=== PATIENT | female | born 1945 | race Caucasian/White ===

== ENCOUNTER 2017-04-08 15:13 | Inpatient (IN) | payer MEDICARE, OTHER ==
[~2017-04-08] VITALS: Ht 165.1 cm; Wt 93.0 kg
[~2017-04-08 15:13] MED LIST: PRAVASTATIN SOD80 MG PO
[2017-04-08 16:12] LABS: BASOPHILS # (AUTO) 0.1 (0.0-0.1); BASOPHILS % 0.7 % (0.0-1.0); HEMATOCRIT 46.1 % (34.2-44.1); HEMOGLOBIN 14.3 g/dL (12.0-16.0); LYMPHOCYTES # (AUTO) 1.4 (1.0-3.2); LYMPHOCYTES % 8.1 % (18.0-39.1); MEAN CORPUSCULAR HEMOGLOBIN 28.5 pg (28-32); MONOCYTES # (AUTO) 1.1 (0.2-0.8); MONOCYTES % 6.6 % (4.4-11.3); NEUTROPHILS # (AUTO) 14.1 (2.1-6.9); NEUTROPHILS % 81.3 % (38.7-80.0); PLATELET COUNT 380 x10e3/uL (140-360); RED BLOOD COUNT 5.01 x10e6/uL (3.6-5.1); RED CELL DISTRIBUTION WIDTH 14.5 % (11.7-14.4)
[2017-04-08] MEDS ORDERED: SODIUM CHLORIDE 0.9% 1000ML 2,000 ML ONE (16:12)
[2017-04-08] MEDS ORDERED: ASPIRIN 81 MG CHEW TAB PO ONE ×2 (16:15→18:45)
[2017-04-08] MEDS ORDERED: SODIUM CHLORIDE 0.9% 1000ML 1,000 ML IV SCH (16:15)
[2017-04-08] MEDS ORDERED: INSULIN REGULAR, HUMAN 100 UNIT/1 ML 3ML VIAL IV ONE (16:15)
[2017-04-08 16:25] LABS: ALBUMIN 3.8 g/dL (3.5-5.0); ALBUMIN/GLOBULIN RATIO 0.8 (0.8-2.0); ANION GAP 38.8 mmol/L (8-16); CALCIUM 9.6 mg/dL (8.4-10.2); CREATININE, SERUM 2.54 mg/dL (0.57-1.11); POTASSIUM 4.8 mmol/L (3.5-5.1)
[2017-04-08 16:30] LABS: CREATINE KINASE MB 6.8 ng/mL (0.00-5.00); TROPONIN I 0.675 ng/mL (0-0.300)
[2017-04-08 16:33] LABS: BLOOD UREA NITROGEN 28 mg/dL (7-26); SODIUM 131 mmol/L (136-145)
[2017-04-08 16:34] LABS: GLUCOSE 1147 mg/dL (74-118); OSMOLALITY,SERUM 326 mOsm/kg (278-305)
[2017-04-08] MEDS: SODIUM CHLORIDE 0.9% 1000ML 2,000 ML IV SCH ×4 (16:45→19:54)
[2017-04-08 16:48] LABS: LIPASE 65 U/L (8-78)
[2017-04-08] MEDS ORDERED: PROPOFOL IV EMULSION 10MG/ML 100 ML ONE (16:49)
[2017-04-08] MEDS ORDERED: INSULIN REGULAR, HUMAN 3ML VL 100 UNIT in SODIUM CHLORIDE 0.45% 100 ML 99 ML IV SCH ×2 (17:00)
[2017-04-08 17:13] LABS: LYMPHOCYTES % (MANUAL) 10 % (19-48); MONOCYTES % (MANUAL) 5 % (3.4-9.0); NEUTROPHILS % (MANUAL) 84 % (40-74); PLATELET ESTIMATE SLIGHTLY INCREASED; PLATELET MORPHOLOGY COMMENT NORMAL; RBC MORPHOLOGY COMMENT NORMAL
[2017-04-08] MEDS ORDERED: METOPROLOL TARTRATE INJ 1 MG/ML VIAL IV ONE ×2 (18:00→19:30)
[2017-04-08] MEDS: MIDAZOLAM HCL 25 MG in SODIUM CHLORIDE 0.9% 50ML 45 ML IV SCH ×2 (18:02→20:23)
[2017-04-08] MEDS: SODIUM CHLORIDE 0.9% 1000ML 1,000 ML IV SCH ×3 (18:08→22:08)
[2017-04-08] MEDS ORDERED: PIPER-TAZ 3.375 GM 50 ML IV ONE (18:15)
[2017-04-08] MEDS ORDERED: WATER STERILE 10 ML VIAL ONE (18:25)
[2017-04-08] MEDS ORDERED: MIDAZOLAM HCL 2 MG/2 ML VIAL ONE (18:25)
[2017-04-08] MEDS ORDERED: SUCCINYLCHOLINE 200 MG/10 ML SYR ONE (18:25)
[2017-04-08] MEDS ORDERED: ETOMIDATE 2 MG/ML 10 ML INJ IV ONE (18:25)
[2017-04-08] MEDS ORDERED: VECURONIUM BROMIDE FOR INJ 20 MG VIAL ONE (18:25)
[2017-04-08] MEDS ORDERED: VANCOMYCIN 1GM/NS 250 ML 250 ML IV ONE (18:30)
[2017-04-08] MEDS: PROPOFOL IV EMULSION 10MG/ML 100 ML IV SCH (18:44)
[2017-04-08] MEDS ORDERED: SODIUM CHLORIDE 0.9% 1000ML 3,000 ML IV SCH (19:00)
[2017-04-08] MEDS ORDERED: INSULIN REGULAR, HUMAN 100 UNIT/1 ML 3ML VIAL ONE (19:02)
[2017-04-08] MEDS ORDERED: VENLAFAXINE H37.5 M2 PO (19:26)
[2017-04-08] MEDS ORDERED: LEVEMIR100 UNIT/1 SQ (19:26)
[2017-04-08] MEDS ORDERED: ARICEPT5 MG PO (19:26)
[2017-04-08] MEDS ORDERED: CARVEDILOL12.5 MG PO (19:26)
[2017-04-08] MEDS ORDERED: MECLIZINE HCL12.5 MG PO (19:26)
[2017-04-08] MEDS ORDERED: NIFEDIPINE ER30 M1 PO (19:26)
[2017-04-08] MEDS ORDERED: ALPRAZOLAM0.5 MG PO (19:26)
[2017-04-08] MEDS ORDERED: CLONIDINE HCL0.1 MG PO (19:26)
[2017-04-08] MEDS ORDERED: SODIUM CHLORIDE 0.9% 1000ML 1,000 ML ONE (19:27)
[2017-04-08 19:29] LABS: BILIRUBIN,URINE NEGATIVE (NEGATIVE); COLOR,URINE YELLOW (YELLOW); KETONES,URINE 2+ (NEGATIVE); LEUKOCYTE ESTERASE ,URINE NEGATIVE (NEGATIVE); NITRITE,URINE NEGATIVE (NEGATIVE); URINE UROBILINOGEN 0.2 mg/dL (0.2 - 1)
[2017-04-08 19:30] LABS: CLARITY,URINE SL CLOUDY (CLEAR); PROTEIN,URINE DIPSTICK 1+ (NEGATIVE)
[2017-04-08] MEDS ORDERED: INSULIN LISPRO 100 UNIT/1 ML 3ML VIAL SQ ONE (19:30)
[2017-04-08 19:38] LABS: RBC,URINE 0-5 /HPF (0-5)
[2017-04-08 19:39] LABS: BACTERIA,URINE FEW /HPF; EPITHELIAL CELLS,URINE RARE /LPF
[2017-04-08 20:22] LABS: CALCIUM 7.9 mg/dL (8.4-10.2); CREATININE, SERUM 2.13 mg/dL (0.57-1.11)
[2017-04-08 20:26] LABS: CREATINE KINASE MB 9.6 ng/mL (0.00-5.00)
[2017-04-08 20:28] LABS: TROPONIN I 2.295 ng/mL (0-0.300)
[2017-04-08] MEDS ORDERED: ASPIRIN 300 MG SUPP PR STA (20:33)
[2017-04-08] MEDS ORDERED: ENOXAPARIN SOD INJ 60 MG/0.6 ML SYR SC STA (20:33)
--- NOTE | 2017-04-08 20:34 | History and Physical ---
This 71-year-old female comes in with acute confusion. She was found to have DKA and admitted for the same. HISTORY OF PRESENT ILLNESS: Ms. Gloria Ovalles has a history of uncontrolled diabetes mellitus. She was seeing digital imaging specialist. She was in her usual state of health until 2 days ago when the patient started to feel some fever with congestion, according to the family, and today the patient was feeling very lethargic, in pain, a lot of muscle pain and came to the emergency room and was found to have blood sugar of 1000 and admitted for the same. PAST MEDICAL HISTORY: History of hypertension, diabetes mellitus, uncontrolled, history of neuropathy, history of dementia and also history of vertigo and chronic low back pain. She also has history of cellulitis of the leg. PAST SURGICAL HISTORY: The patient is intubated, but we know that she had a hip replacement and also knee replacement. Other surgeries at this time not known. MEDICATIONS: That we know, are Carvedilol 12.5 mg twice a day, lisinopril, meclizine. She takes alprazolam. She takes hydrocodone. She takes pravastatin. REVIEW OF SYSTEMS: Unable to get at this time. PHYSICAL EXAMINATION GENERAL: The patient is intubated. She is sedated. HEENT: Normocephalic, atraumatic. Pupils are reactive. LUNGS: Decreased air entry into lung bases and also positive for some rhonchi. ABDOMEN: Soft and nontender, nondistended. EXTREMITIES: Positive for some edema and positive for some erythema too. LABORATORY DATA: On initial labs, the patient has white count of 17,000, hemoglobin 14.3, hematocrit 46.1. is 14.1. Chemistry: Sodium 131, chloride 88, carbon dioxide of 9, bicarb 9, anion gap of 38.8, BUN 28, creatinine 2.54. Glucose 1147. Osmolality was 326. Lactic acid was 58.6. Troponin was 0.675 and CK MB was 6.8. IMAGING: CK MB was 6.8. IMAGING: Brain CT mild generalized volume loss, mild supratentorial white matter, small vessel disease. Renal ultrasound was done, normal renal ultrasound examination. Chest x-ray shows no acute radiographic abnormalities. Lower extremity x-rays show moderate soft tissue swelling in the ankle without underlying chronic erosion or destruction or fracture. ASSESSMENT 1. Diabetic ketoacidosis. 2. Sepsis, possibly because of elevated lactic acid. 3. Acute kidney injury. 4. Dehydration. 5. History of hypertension. 6. Troponin leak. 7. Hyperglycemia. PLAN: The plan is to start the patient on insulin drip. Dr. Wharton has been consulted. The patient has been intubated and will see the patient in ICU. Pancultures have been ordered. The patient is on vancomycin and Zosyn at this time. Consult with Dr. Read for troponin leak has been done and also with Dr. Avila. Monitor the patient in ICU. Further recommendations depending on clinical course. Will try to get her home medications and also further history from the . The patient will be transferred to the ICU from the ER right now. Job#: [id number] GH
[2017-04-08 20:55] LABS: ABG PH 7.19 (7.31-7.41)
[2017-04-08] MEDS: MAGNESIUM SULF 1GRAM/DEXTROSE 100 ML IV PRN (20:55)
[2017-04-08] MEDS ORDERED: MAGNESIUM SULF 1GRAM/DEXTROSE 100 ML IV ONE (20:55)
[2017-04-08 20:56] LABS: ABG HCO3 13 mmol/L (23-28); ABG PCO2 34 mmHg (41-51); ABG PO2 140 mmHg (80-105)
--- NOTE | 2017-04-08 21:48 | Diagnostic Imaging Report ---
EXAM: ABDOMEN-1VIEW (KUB), supine DATE: 04/08/2017 7:13 PM Time stamp on exam: 1937 hours INDICATION: Not provided COMPARISON: None FINDINGS: LINES/TUBES: None BOWEL PATTERN: No evidence for obstruction. SOFT TISSUES: No abnormal calcifications. No mass effect. LUNG BASES: Not included BONES: No acute findings. IMPRESSION: Nonobstructive bowel gas pattern. Signed by: Dr. Anahi Munoz M.D. on 04/08/2017 9:45 PM
--- NOTE | 2017-04-08 21:49 | Diagnostic Imaging Report ---
EXAM: CHEST SINGLE (PORTABLE), AP 1 view DATE: 04/08/2017 7:13 PM Time stamp on exam: 1938 hours INDICATION: Intubation COMPARISON: February 13, 2017 endotracheal tube terminates 3 cm above the rosaline. Right internal jugular vein central catheter terminates in the dilatation of the distal superior vena cava. FINDINGS: LINES/TUBES: None LUNGS: Bilateral edema and bibasilar atelectasis. PLEURA: No effusions or pneumothorax. HEART AND MEDIASTINUM: The heart is within normal size limits. Enlargement of the main pulmonary arteries. BONES AND SOFT TISSUES: No acute findings. IMPRESSION: Mild edema. Signed by: Dr. Anahi Munoz M.D. on 04/08/2017 9:46 PM
[2017-04-08 21:57] LABS: INR 1.18; PROTHROMBIN TIME 15.6 seconds (11.9-14.5)
[2017-04-08 21:58] LABS: PARTIAL THROMBOPLASTIN TIME 26.7 seconds (23.8-35.5)
[2017-04-09] VITALS (42 sets, daily range): BP systolic 127–161; BP diastolic 71–107
[2017-04-09 00:37] LABS: ANION GAP 16.8 mmol/L (8-16); CALCIUM 7.5 mg/dL (8.4-10.2); CREATININE, SERUM 1.56 mg/dL (0.57-1.11); MAGNESIUM 1.7 MG/DL (1.3-2.1); POTASSIUM 3.8 mmol/L (3.5-5.1)
[2017-04-09] MEDS: ACETAMINOPHEN 1000 MG/100 ML IV PRN ×2 (02:00→16:34)
[2017-04-09] MEDS: DEXTROSE 5%/0.45% SOD CHL 1,000 ML IV SCH ×7 (02:05→22:05)
[2017-04-09] MEDS ORDERED: SODIUM CHLORIDE 0.45% 100 ML 100 ML IV ONE (02:16)
[2017-04-09] MEDS: SODIUM CHLORIDE 0.9% 1000ML 1,000 ML IV SCH ×5 (02:16→08:08)
[2017-04-09 03:24] LABS: BASOPHILS % 0.3 % (0.0-1.0); EOSINOPHILS % 0.1 % (0.0-6.0); HEMATOCRIT 32.1 % (34.2-44.1); LYMPHOCYTES # (AUTO) 1.9 (1.0-3.2); LYMPHOCYTES % 16.6 % (18.0-39.1); MEAN CORPUSCULAR HGB CONC 34.3 g/dL (31-35); MEAN CORPUSCULAR VOLUME 84.7 fL (81-99); MONOCYTES # (AUTO) 1.1 (0.2-0.8); MONOCYTES % 9.6 % (4.4-11.3); NEUTROPHILS # (AUTO) 8.3 (2.1-6.9); NEUTROPHILS % 72.8 % (38.7-80.0); PLATELET COUNT 246 x10e3/uL (140-360); RED BLOOD COUNT 3.79 x10e6/uL (3.6-5.1); RED CELL DISTRIBUTION WIDTH 14.3 % (11.7-14.4)
[2017-04-09 03:41] LABS: ANION GAP 14.5 mmol/L (8-16); CALCIUM 7.3 mg/dL (8.4-10.2); CREATININE, SERUM 1.27 mg/dL (0.57-1.11); MAGNESIUM 1.4 MG/DL (1.3-2.1); PHOSPHORUS 2.4 MG/DL (2.3-4.7); POTASSIUM 3.5 mmol/L (3.5-5.1)
[2017-04-09 03:47] LABS: CREATINE KINASE MB 17.5 ng/mL (0.00-5.00)
[2017-04-09 03:49] LABS: TROPONIN I 13.619 ng/mL (0-0.300)
[2017-04-09] MEDS ORDERED: MAGNESIUM SULF 1GRAM/DEXTROSE 100 ML IV ONE (04:32)
--- NOTE | 2017-04-09 05:39 | Diagnostic Imaging Report ---
EXAM: CHEST SINGLE (PORTABLE), AP 1 view DATE: 04/09/2017 7:00 AM Time stamp on exam: 0511 hours INDICATION: Intubated COMPARISON: AP view of the chest April 08, 2017 FINDINGS: LINES/TUBES: Stable position of endotracheal tube, right internal jugular vein central line. LUNGS: Stable edema and perihilar and bibasilar atelectasis PLEURA: No effusions or pneumothorax. HEART AND MEDIASTINUM: The heart is within normal size limits. Stable enlargement of the central pulmonary vessels. BONES AND SOFT TISSUES: No acute findings. IMPRESSION: No interval change. Signed by: Dr. Anahi Munoz M.D. on 04/09/2017 5:36 AM
[2017-04-09] MEDS ORDERED: MIDAZOLAM HCL 2 MG/2 ML VIAL ONE (05:41)
[2017-04-09] MEDS ORDERED: SODIUM CHLORIDE 0.9% 50ML 50 ML ONE (05:42)
[2017-04-09 07:24] LABS: ANION GAP 11.3 mmol/L (8-16); CALCIUM 7.4 mg/dL (8.4-10.2); CREATININE, SERUM 1.26 mg/dL (0.57-1.11); MAGNESIUM 1.8 MG/DL (1.3-2.1); POTASSIUM 3.3 mmol/L (3.5-5.1)
[2017-04-09 08:36] LABS: THYROID STIMULATING HORMONE 1.021 uIU/mL (0.350-4.940)
[2017-04-09] MEDS ORDERED: INSULIN REGULAR, HUMAN 3ML VL 300 UNIT in SODIUM CHLORIDE 0.45% 100 ML 300 ML IV SCH ×4 (09:40→14:34)
[2017-04-09] MEDS ORDERED: DEXTROSE 50% SYRINGE 50 ML IV PRN ×2 (09:45→14:45)
[2017-04-09 09:53] LABS: CHOL/HDL RATIO 6.5 (3.0-3.6)
[2017-04-09] MEDS: VANCOMYCIN 1GM/NS 250 ML 250 ML IV SCH ×2 (09:54→21:00)
[2017-04-09] MEDS: PANTOPRAZOLE 40 MG 10ML VIAL IV SCH (09:54)
[2017-04-09] MEDS: ASPIRIN 325 MG TAB PO SCH (09:56)
[2017-04-09] MEDS: ENOXAPARIN INJ 80 MG/0.8 ML SYR SC SCH ×2 (09:56→21:00)
[2017-04-09] MEDS ORDERED: CLOPIDOGREL BISULFATE 75 MG TAB PO ONE (10:00)
--- NOTE | 2017-04-09 12:56 | Consultation ---
DATE OF CONSULTATION: April 09, 2017 CARDIAC CONSULTATION REASON FOR CONSULTATION: Myocardial infarction, DVT, respiratory failure, diabetic ketoacidosis, acute tubular necrosis and multiple other medical health problems. HISTORY: This is an unfortunate, 71-year-old lady who is known with longstanding history of diabetes mellitus. She is also known with hypertension. She was admitted to this institution with history of being lethargic, fever, chills, muscle aches, muscle pain, not feeling well. Her blood sugar on admission was 1147. Her BUN and creatinine were 28 and 2.5. Her troponin on admission was 2.3, and her bicarb was only at 9. Definitely, the patient was in diabetic ketoacidosis and shock status, hypotensive, tachycardic with respiratory failure. Patient started on diabetic ketoacidosis protocol covered with antibiotics. Swelling of the right lower extremity is noted. A venous Doppler showed the presence of deep venous thrombosis of the right popliteal vein. Patient's repeated troponin was at 13.6 with CK of 498 and MB of 17.5. We loaded the patient with Lovenox. Patient is already on aspirin. Patient is on IV fluids and rescue protocol for her problem. Patient was seen and evaluated in the emergency room. Patient is intubated, and no information can be taken from her. All of the information is taken from nursing staff and reviewing all the medical records. Apparently as we can gather, the patient was progressively getting worse over the last couple of days or so. This was with fever, chills, altered mental status, tachypneic, tachycardic, agitated, uncooperative. In fact, when she came to the emergency room, she was tachycardic, hypotensive, in extreme diabetic ketoacidosis. Patient needed to be intubated, sedated and placed on ventilator. REVIEW OF SYSTEMS: Unable to get at this time. PAST MEDICAL HISTORY 1. Hypertension. 2. Diabetes mellitus. 3. Neuropathy. 4. Possible dementia. 5. Chronic low back pain. 6. Recent cellulitis of the right lower extremity. 7. There is mentioning of possible hip replacement and knee replacement surgery. 8. Also by physical examination there is an abdominal scar, possible hysterectomy or another abdominal surgery. CURRENT MEDICATIONS: Patient was given 1 dose of vancomycin. She is on Zosyn. We started her on Lovenox. She is on IV fluids. She is on insulin, and she is on other medications. FAMILY HISTORY: Unable to get. PHYSICAL EXAMINATION VITALS: Height is 5 feet 5 inches. Weight of 215 pounds. Blood pressure 120/80. Heart rate 120. Temperature of 100.4. HEENT: Pupils are reactive. Patient is intubated. NECK: No elevation of jugular venous pulsation. CHEST: Bilateral crackles. HEART: Tachycardia with 1st and 2nd heart sounds. ABDOMEN: Soft. Bowel sounds are present. EXTREMITIES: Swelling of the right lower extremity is noted. Decreased pulses. NEUROLOGIC: Patient is sedated on Versed. She is responding to stimuli. LABORATORY DATA: Admission glucose of 1147, BUN 28, creatinine of 2.5, bicarb of 9. Troponin on admission 2.3. Repeat troponin at 13.6. CK-MB at 17.5 with CK of 498. ABG showed pH of 7.19, pCO2 of 34, pO2 of 140, bicarb of only 13. Admission white blood cells showed leukocytosis almost 18,000, repeated at 11.3. Hemoglobin of 11. Creatinine of 3.2. BUN 28 and creatinine of 2.5. EKG showing sinus tachycardia, nonspecific intraventricular conduction delay. IMAGING: Chest x-ray showing cardiomegaly, prominence of pulmonary arteries. IMPRESSION AND PLAN 1. Acute diabetic ketoacidosis. 2. Sepsis with history of fever, possibly triggering factor. 3. Acute tubular necrosis and acute kidney injury. 4. Dehydration. 5. Hypertension. 6. Right popliteal deep venous thrombosis. 7. Troponin elevated, although it is plausible to blame on her acute status and possible pulmonary embolism. However, coronary artery disease is definitely a probability and probably a contributing factor. Cardiac-welch, my recommendations will be as follows: Continuation of DKA treatment. Hydration. Watching blood sugar and blood glucose. Full anticoagulation with Lovenox, loading with Plavix. Continuation of aspirin and beta moy. Checking echocardiogram. Getting serial cardiac enzymes. Patient attended in the emergency room. Case discussed with nursing staff. Patient evaluated and will be re-evaluated through the day depending on her progression. Time spent in the 1st evaluation of 1 hour in intensive care unit with adjustment of fluids and medication. Patient will be re-evaluated again today. Will follow the patient's progression with you. I would like to thank you for kind referral. Job#: [id number] MH
[2017-04-09] MEDS: PIPER-TAZ 3.375 GM 50 ML IV SCH ×2 (14:57→23:00)
[2017-04-09] MEDS: PROPOFOL IV EMULSION 10MG/ML 100 ML IV SCH (14:57)
--- NOTE | 2017-04-09 15:36 | Consultation ---
DATE OF CONSULTATION: PULMONARY CONSULTATION REASON FOR THE CONSULT: ICU management. Patient is on mechanical ventilator. HPI: Ms. Ovalles is a 71-year-old female who was brought into the emergency room with confusion. Patient was found to be DKA. Blood sugar was 1100. Patient is currently intubated, sedated, and is unable to give any history. She is on FiO2 of 40% and has been saturating well. She is on 3 mcg of Versed. According to the history done by Dr. Real, patient's family told him that she was feeling lethargic, in pain and has a lot of muscle pain, so she was brought to the emergency room. REVIEW OF SYSTEMS: Unable to elicit any as patient is intubated and sedated. PAST MEDICAL HISTORY: Hypertension, diabetes uncontrolled, neuropathy, dementia, chronic low back pain, cellulitis of the leg. PAST SURGICAL HISTORY: She is intubated, history of hip replacement and knee replacement. PHYSICAL EXAMINATION VITAL SIGNS: Temperature 100, pulse of 110, blood pressure is 149/87, and respiratory rate is 18. Patient is on mechanical ventilator, FiO2 is 40%, rate of 16, tidal volume of 500, PEEP of 5. SKIN: Warm and dry. HEENT: Pupils are reactive. NECK: Supple. She is intubated. She has a right IJ. CHEST: Clear to auscultation bilaterally. No wheezing, no crackles. HEART: S1, S2 audible. ABDOMEN: Soft, nontender. EXTREMITIES: No clubbing or cyanosis. Trace pedal edema. LABORATORY DATA: White count of 17,000, hemoglobin 14.3, platelets 380, white count of 11.39, hemoglobin 11.0, platelets 246. Chemistry: Sodium 141, potassium 3.3, chloride 114, bicarbonate 19, BUN 18, creatinine 1.26. Creatinine was 2.54 on admission. Her bicarbonate was 9 on admission. Her anion gap was 38 on admission, it is 11.3. Blood gas; pH of 7.19, pCO2 of 34, and pO2 of 140 that was on 04/08/2017. Chest x-ray is showing increased vascular congestion, possible enlarged blood vessels and edema. ASSESSMENT/PLAN: Ms. Ovalles is a 71-year-old female who presented with confusion, found to be in diabetic ketoacidosis, currently intubated and sedated as patient was in severe metabolic acidosis. CURRENT PROBLEMS 1. Diabetic ketoacidosis, which is resolving. Patient is on DKA protocol and Dr. Wharton has been consulted. 2. Acute respiratory failure due to severe metabolic acidosis and possible fluid overload, possibly increased vascular congestion which is improving. Patient is on FiO2 of 40%. I will put her on pressure support and evaluate for extubation. Metabolic acidosis has resolved. Anion gap has closed. Patient is on insulin protocol. 3. Currently, patient is on Versed. Will try to taper it off. 4. Acute kidney injury, which was likely prerenal because of severe diabetic ketoacidosis as it is resolving and patient is improving. 5. Deep vein thrombosis per the preliminary report of the ultrasound. Patient has been started on Lovenox by cardiology. 6. Increased troponin and troponin has increased to 13, possible [id number] myocardial infarction. Cardiology has been consulted and they are following the patient. Patient is loaded with Plavix. 1. Will discuss with cardiology. If they are planning to do a cath, then will hold off on the extubation. Critical care time spent 50 minutes. Job#: [id number] BRAN
[2017-04-09] MEDS: MIDAZOLAM HCL 25 MG in SODIUM CHLORIDE 0.9% 50ML 45 ML IV SCH (15:45)
--- NOTE | 2017-04-09 15:57 | Consultation ---
DATE OF CONSULTATION: April 09, 2017 ENDOCRINE CONSULTATION PATIENT OF: Dr. Farhan Kingsley. Thank you very much for referring this patient. This is a 71-year-old white female who is referred to me for evaluation of diabetic ketoacidosis and uncontrolled diabetes. Most of the history is available from the chart. Patient initially came to the hospital with history of chest pain, shortness of breath. She had acute respiratory failure and was put on vent. Patient also has a blood sugar at the time of admission around 1147, anion gap was 38.8, and BUN and creatinine was 28 and 2.54. Her troponins were also elevated. From the chart, it looks like the patient is a known diabetic and takes insulin at home. She also has history of hypertension, obesity, and obstructive pulmonary disease. PHYSICAL EXAMINATION GENERAL: Today, the patient is on the vent. She is responding to the oral commands. VITAL SIGNS: Her heart rate is around 78. Blood pressure 140/80 mmHg. HEENT: Essentially unremarkable. NECK: Thyroid is palpable. Clinically, she is near euthyroid. CHEST: Bilateral vesicular breathing. She has bilateral bronchospasm. CARDIOVASCULAR: First and second heart sounds. There is no third or fourth heart sound. Ejection sound grade 2/6. EXTREMITIES: Patient has mild pedal edema. She has evidence of diabetic sensory neuropathy in both lower extremities. CLINICAL IMPRESSION 1. Acute respiratory failure on the vent. 2. Diabetes mellitus type 2, uncontrolled with complication. 3. Diabetic ketoacidosis. 4. Lactic acidosis. 5. Non-ST elevation myocardial infarction. 6. Congestive cardiac failure. 7. Hypertension. 8. Hyperlipidemia. PLAN: At this time is to continue the insulin drip, monitor her blood sugars closely, and patient is being also evaluated by the cardiology and the pulmonary group. Thanks again for referring this patient. I will be following this patient with you. Job#: [id number] KAVYA FELIX
[2017-04-09] MEDS: INSULIN REGULAR, HUMAN 3ML VL 100 UNIT in SODIUM CHLORIDE 0.45% 100 ML 100 ML IV SCH ×2 (16:00)
[2017-04-09 16:10] LABS: FREE T4 (FREE THYROXINE) 0.98 ng/dL (0.8-1.8); THYROID STIMULATING HORMONE 1.192 uIU/mL (0.350-4.940)
[2017-04-09] MEDS ORDERED: METOPROLOL TARTRATE 25 MG TAB PO SCH (17:00)
[2017-04-09] MEDS ORDERED: ENOXAPARIN SOD INJ 60 MG/0.6 ML SYR SC SCH (17:00)
[2017-04-09 21:13] LABS: CREATINE KINASE MB 10.2 ng/mL (0.00-5.00)
[2017-04-09 21:16] LABS: TROPONIN I 10.998 ng/mL (0-0.300)
[2017-04-09] MEDS ORDERED: FENTANYL CITRATE INJ 2,000 MCG in SODIUM CHLORIDE 0.9% 250ML 210 ML IV PRN (22:45)
[2017-04-10] VITALS (20 sets, daily range): BP systolic 102–147; BP diastolic 57–88
[2017-04-10] MEDS: METOPROLOL TARTRATE 50 MG TAB PO SCH ×4 (01:06→17:11)
[2017-04-10] MEDS ORDERED: MIDAZOLAM HCL 5 MG/ML VIAL ONE (01:37)
[2017-04-10] MEDS ORDERED: SODIUM CHLORIDE 0.9% 50ML 50 ML ONE (01:37)
[2017-04-10] MEDS: PIPER-TAZ 3.375 GM 50 ML IV SCH ×3 (04:37→22:13)
[2017-04-10 05:32] LABS: BASOPHILS % 0.5 % (0.0-1.0); EOSINOPHILS # (AUTO) 0.1 (0.0-0.4); EOSINOPHILS % 1.6 % (0.0-6.0); HEMATOCRIT 30.6 % (34.2-44.1); HEMOGLOBIN 10.2 g/dL (12.0-16.0); LYMPHOCYTES # (AUTO) 1.7 (1.0-3.2); LYMPHOCYTES % 20.8 % (18.0-39.1); MEAN CORPUSCULAR HEMOGLOBIN 28.7 pg (28-32); MEAN CORPUSCULAR HGB CONC 33.3 g/dL (31-35); MONOCYTES # (AUTO) 0.6 (0.2-0.8); MONOCYTES % 7.1 % (4.4-11.3); NEUTROPHILS # (AUTO) 5.6 (2.1-6.9); NEUTROPHILS % 69.5 % (38.7-80.0); PLATELET COUNT 212 x10e3/uL (140-360); RED BLOOD COUNT 3.56 x10e6/uL (3.6-5.1); RED CELL DISTRIBUTION WIDTH 14.8 % (11.7-14.4)
[2017-04-10 06:01] LABS: ALANINE AMINOTRANSFERASE 18 IU/L (0-55); ALBUMIN 2.2 g/dL (3.5-5.0); ALBUMIN/GLOBULIN RATIO 0.6 (0.8-2.0); ALKALINE PHOSPHATASE 14 IU/L (40-150); ANION GAP 8.8 mmol/L (8-16); BLOOD UREA NITROGEN 11 mg/dL (7-26); BUN/CREATININE RATIO 13 (6-25); CALCIUM 7.3 mg/dL (8.4-10.2); CARBON DIOXIDE 19 mmol/L (22-29); CHLORIDE 108 mmol/L (98-107); CREATININE, SERUM 0.85 mg/dL (0.57-1.11); EST GLOMERULAR FILTRATION RATE > 60 ML/MIN (60-); GLUCOSE 163 mg/dL (74-118)
[2017-04-10 06:25] LABS: POTASSIUM 2.8 mmol/L (3.5-5.1); SODIUM 133 mmol/L (136-145)
[2017-04-10] MEDS: DEXTROSE 5%/0.45% SOD CHL 1,000 ML IV SCH ×3 (06:30→17:11)
[2017-04-10] MEDS: POTASSIUM CHLORIDE 20MEQ/100ML 200 ML IV PRN ×2 (06:30→06:31)
--- NOTE | 2017-04-10 06:31 | Diagnostic Imaging Report ---
EXAM: CHEST SINGLE (PORTABLE), AP 1 view DATE: 04/10/2017 4:52 AM Time stamp on exam: 0528 hours INDICATION: Intubation COMPARISON: AP view of the chest were 2017 FINDINGS: LINES/TUBES: Endotracheal tube at the level of the rosaline. Nasal/orogastric tube courses below the diaphragm out of field of view. Right internal jugular vein central line, stable position LUNGS: Stable edema and perihilar and bibasilar atelectasis PLEURA: Likely small left pleural effusion HEART AND MEDIASTINUM: Stable appearance BONES AND SOFT TISSUES: No acute findings. IMPRESSION: The endotracheal tube tip is at the level of the rosaline. Likely developing small left pleural effusion. Signed by: Dr. Anahi Munoz M.D. on 04/10/2017 6:28 AM
[2017-04-10] MEDS ORDERED: POTASSIUM CHLORIDE 10MEQ/100ML 200 ML ONE (06:42)
[2017-04-10] MEDS: MIDAZOLAM HCL 25 MG in SODIUM CHLORIDE 0.9% 50ML 45 ML IV SCH (08:52)
[2017-04-10] MEDS: PANTOPRAZOLE 40 MG 10ML VIAL IV SCH (09:49)
[2017-04-10] MEDS: CLOPIDOGREL BISULFATE 75 MG TAB PO SCH (09:52)
[2017-04-10] MEDS: ASPIRIN 325 MG TAB PO SCH (09:52)
[2017-04-10] MEDS: ENOXAPARIN INJ 80 MG/0.8 ML SYR SC SCH ×2 (09:52→21:00)
[2017-04-10] MEDS: VANCOMYCIN 1GM/NS 250 ML 250 ML IV SCH ×2 (10:34→21:00)
[2017-04-10] MEDS: PROPOFOL IV EMULSION 10MG/ML 100 ML IV SCH (16:50)
[2017-04-10] MEDS: POTASSIUM CHLORIDE 20MEQ/15ML UDC NG SCH ×2 (17:07→22:18)
[2017-04-10] MEDS: ATORVASTATIN 40 MG TAB PO SCH (21:00)
[2017-04-10] MEDS: SODIUM CHLORIDE 0.9% 1000ML 1,000 ML IV SCH (22:52)
[2017-04-11] VITALS (75 sets, daily range): BP systolic 97–183; BP diastolic 53–122
[2017-04-11] MEDS: POTASSIUM CHLORIDE 20MEQ/15ML UDC NG SCH (02:02)
[2017-04-11] MEDS: METOPROLOL TARTRATE 50 MG TAB PO SCH ×4 (02:02→18:30)
[2017-04-11] MEDS ORDERED: INSULIN REGULAR, HUMAN 100 UNIT/1 ML 3ML VIAL ONE (02:29)
[2017-04-11] MEDS ORDERED: SODIUM CHLORIDE 0.45% 100 ML 100 ML IV ONE (02:32)
[2017-04-11] MEDS: PIPER-TAZ 3.375 GM 50 ML IV SCH ×3 (05:40→22:11)
[2017-04-11 06:16] LABS: INR 1.06; PROTHROMBIN TIME 14.4 seconds (11.9-14.5)
--- NOTE | 2017-04-11 06:17 | Diagnostic Imaging Report ---
EXAM: CHEST SINGLE (PORTABLE), AP 1 view DATE: 04/11/2017 4:41 AM Time stamp on exam: 0515 hours INDICATION: Intubated COMPARISON: AP view of the chest April 10, 2017 FINDINGS: LINES/TUBES: Endotracheal tube near the orifice of the right mainstem bronchus. Stable position right internal jugular vein central line. Stable position nasal/orogastric tube LUNGS: Stable edema and perihilar and bibasilar atelectasis PLEURA: No effusions or pneumothorax. HEART AND MEDIASTINUM: Stable appearance BONES AND SOFT TISSUES: No acute findings. IMPRESSION: The endotracheal tube is near the orifice of the right mainstem bronchus. Signed by: Dr. Anahi Munoz M.D. on 04/11/2017 6:13 AM
[2017-04-11 06:26] LABS: BASOPHILS # (AUTO) 0.1 (0.0-0.1); BASOPHILS % 0.8 % (0.0-1.0); EOSINOPHILS # (AUTO) 0.2 (0.0-0.4); EOSINOPHILS % 3.1 % (0.0-6.0); HEMATOCRIT 31.6 % (34.2-44.1); HEMOGLOBIN 10.4 g/dL (12.0-16.0); LYMPHOCYTES # (AUTO) 1.9 (1.0-3.2); LYMPHOCYTES % 24.6 % (18.0-39.1); MEAN CORPUSCULAR HGB CONC 32.9 g/dL (31-35); MONOCYTES # (AUTO) 0.6 (0.2-0.8); MONOCYTES % 7.1 % (4.4-11.3); NEUTROPHILS # (AUTO) 4.9 (2.1-6.9); NEUTROPHILS % 63.6 % (38.7-80.0); PLATELET COUNT 240 x10e3/uL (140-360); RED BLOOD COUNT 3.59 x10e6/uL (3.6-5.1); RED CELL DISTRIBUTION WIDTH 15.4 % (11.7-14.4)
[2017-04-11 06:50] LABS: ALANINE AMINOTRANSFERASE 27 IU/L (0-55); ALBUMIN/GLOBULIN RATIO 0.6 (0.8-2.0); ALKALINE PHOSPHATASE 22 IU/L (40-150); ANION GAP 10.6 mmol/L (8-16); BLOOD UREA NITROGEN 10 mg/dL (7-26); BUN/CREATININE RATIO 12 (6-25); CALCIUM 7.1 mg/dL (8.4-10.2); CARBON DIOXIDE 18 mmol/L (22-29); CHLORIDE 114 mmol/L (98-107); CREATININE, SERUM 0.86 mg/dL (0.57-1.11); EST GLOMERULAR FILTRATION RATE > 60 ML/MIN (60-); GLUCOSE 112 mg/dL (74-118); MAGNESIUM 1.5 MG/DL (1.3-2.1); PHOSPHORUS 1.7 MG/DL (2.3-4.7); POTASSIUM 4.6 mmol/L (3.5-5.1); SODIUM 138 mmol/L (136-145)
[2017-04-11 07:54] LABS: TROPONIN I 2.853 ng/mL (0-0.300)
[2017-04-11] MEDS: PANTOPRAZOLE 40 MG 10ML VIAL IV SCH (09:00)
[2017-04-11] MEDS: ASPIRIN 325 MG TAB PO SCH (09:00)
[2017-04-11] MEDS: CLOPIDOGREL BISULFATE 75 MG TAB PO SCH (09:00)
[2017-04-11] MEDS: VANCOMYCIN 1GM/NS 250 ML 250 ML IV SCH ×2 (09:30→21:00)
[2017-04-11] MEDS ORDERED: LIDOCAINE HCL 2% LOCAL 20 ML VIAL ONE (09:41)
[2017-04-11] MEDS ORDERED: HEPARIN SOD/SOD CHLORIDE 2,000 ML ONE (09:42)
[2017-04-11] MEDS ORDERED: IOPAMIDOL 370 MG/ML 200 ML INFUS..BTL INJ ONE ×2 (09:42→10:47)
[2017-04-11] MEDS ORDERED: SODIUM CHLORIDE 0.9% 50ML 50 ML ONE (11:12)
[2017-04-11] MEDS ORDERED: BIVALIRUDIN 250 MG/VIAL IV ONE (11:12)
[2017-04-11] MEDS ORDERED: CLOPIDOGREL BISULFATE 75 MG TAB ONE ×2 (11:52)
[2017-04-11] MEDS: MIDAZOLAM HCL 25 MG in SODIUM CHLORIDE 0.9% 50ML 45 ML IV SCH ×2 (12:35→21:05)
[2017-04-11] MEDS ORDERED: DEXMEDETOMIDINE HCL 1,000 MCG in SODIUM CHLORIDE 0.9% 250ML 250 ML IV PRN (13:00)
--- NOTE | 2017-04-11 13:00 | Operative Report ---
DATE OF PROCEDURE: April 11, 2017 TITLE OF PROCEDURE: 1. Left cardiac catheterization. 2. Percutaneous coronary intervention and stenting of large ramus artery. 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 She was admitted to this institution with [id number] myocardial infarction, advanced congestive heart failure, severe left ventricular dysfunction, and respiratory failure on ventilator. She was also having ketoacidosis. After the usual sterile preparation and draping procedure, patient was already sedated and on ventilator; so, more sedation was given. A 4-Anguillan sheath established in the right common femoral artery. Estefani left 4 and 3DRC catheter to engage coronary. Pigtail for left ventriculogram and hemodynamic measurement. A decision was made to proceed with intervention. For that reason, the existing 4-Anguillan sheath exchanged to 6-Anguillan sheath. Guiding catheter was XB3.5. Stenting was done with 2.25 x 16 Synergy drug-eluted stent up to 22 atmospheres. Final diameter of 2.5 to 2.6 mm. Repeated angiogram showed good results. Attention was made to the right groin. Closure device Angio-Seal was deployed successfully. Patient had good hemostasis. Patient was stable, transferred to ICU in stable condition. There were no complications and no blood loss. RESULTS: A. Coronary angiogram. 1. Left main free of disease. 2. LAD 40% to 50% proximally, 80% mid, 80% distal. The artery tapering to less than 2 mm. 3. Ramus artery is the largest of the left system with 90% lesion. 4. Circumflex coronary artery at the bifurcation of the 1st OM relatively small artery having 70% lesion. 5. Right coronary artery diffusely diseased with several lesions at 50% through its course. B. Hemodynamics: Aorta pressure 145/70. LV pressure 145/45. C. Left ventriculogram in the right anterior oblique view showed left ventricle to be enlarged in systole and diastole, severe generalized hypokinesis, ejection fraction of 20% to 25%. PCI procedure: Guiding catheter 6-Anguillan XB3.5. Only Angiomax bolus is given. The lesion crossed successfully. Stenting was done using 2.25 x 16 Synergy drug-eluted stent up to 22 atmospheres. Final diameter of approximately 2.6 mm. Lesion prior to intervention at 90%, following intervention at zero percent. The right common femoral artery was closed successfully using Angio-Seal device. IMPRESSION: 1. Three-vessel coronary artery disease. 2. Severe left ventricular dysfunction with elevated left ventricular end-diastolic pressure. 3. Successful percutaneous coronary intervention and stenting of ramus artery. 4. No complication and no blood loss. Job#: [id number] EV
[2017-04-11] MEDS: PROPOFOL IV EMULSION 10MG/ML 100 ML IV SCH (16:50)
[2017-04-11] MEDS: DEXTROSE 50% SYRINGE 50 ML IV PRN (18:13)
[2017-04-11] MEDS ORDERED: MAGNESIUM SULF 1GRAM/DEXTROSE 100 ML IV ONE (18:28)
[2017-04-11] MEDS: MAGNESIUM SULF 1GRAM/DEXTROSE 100 ML IV PRN (18:35)
[2017-04-11] MEDS: ATORVASTATIN 40 MG TAB PO SCH (21:40)
[2017-04-11] MEDS: SODIUM CHLORIDE 0.9% 1000ML 1,000 ML IV SCH (21:40)
[2017-04-12] VITALS (102 sets, daily range): BP systolic 74–197; BP diastolic 46–121
[2017-04-12] MEDS: METOPROLOL TARTRATE 50 MG TAB PO SCH ×4 (00:18→17:59)
[2017-04-12] MEDS: MIDAZOLAM HCL 25 MG in SODIUM CHLORIDE 0.9% 50ML 45 ML IV SCH (03:35)
[2017-04-12] MEDS: PIPER-TAZ 3.375 GM 50 ML IV SCH ×3 (05:48→23:00)
[2017-04-12 06:01] LABS: BASOPHILS % 0.4 % (0.0-1.0); EOSINOPHILS # (AUTO) 0.2 (0.0-0.4); EOSINOPHILS % 2.4 % (0.0-6.0); LYMPHOCYTES # (AUTO) 1.6 (1.0-3.2); LYMPHOCYTES % 21.5 % (18.0-39.1); MEAN CORPUSCULAR HEMOGLOBIN 28.5 pg (28-32); MEAN CORPUSCULAR HGB CONC 32.3 g/dL (31-35); MEAN CORPUSCULAR VOLUME 88.3 fL (81-99); MONOCYTES # (AUTO) 0.5 (0.2-0.8); MONOCYTES % 6.3 % (4.4-11.3); NEUTROPHILS # (AUTO) 5.2 (2.1-6.9); PLATELET COUNT 218 x10e3/uL (140-360); RED BLOOD COUNT 3.51 x10e6/uL (3.6-5.1); RED CELL DISTRIBUTION WIDTH 15.6 % (11.7-14.4)
[2017-04-12 06:30] LABS: ALBUMIN 1.9 g/dL (3.5-5.0); ALBUMIN/GLOBULIN RATIO 0.5 (0.8-2.0); ANION GAP 11.1 mmol/L (8-16); CALCIUM 7.1 mg/dL (8.4-10.2); CREATININE, SERUM 0.95 mg/dL (0.57-1.11); POTASSIUM 4.1 mmol/L (3.5-5.1)
--- NOTE | 2017-04-12 07:12 | Diagnostic Imaging Report ---
EXAM: CHEST SINGLE (PORTABLE), AP 1 view DATE: 04/12/2017 4:10 AM Time stamp on exam: 5:26 AM INDICATION: Intubation COMPARISON: AP view of the chest April 10, 2017, 04/11/2017 FINDINGS: LINES/TUBES: Endotracheal tube is now 2.5 cm above the rosaline in good position. Stable position right internal jugular vein central line. Stable position nasal/orogastric tube LUNGS: Stable edema and perihilar and bibasilar atelectasis PLEURA: No effusions or pneumothorax. HEART AND MEDIASTINUM: Stable appearance BONES AND SOFT TISSUES: No acute findings. IMPRESSION: 1. The endotracheal tube is now in good position 2.5 cm above the rosaline. 2. Otherwise, stable chest. Signed by: Dr. Vasu Matias M.D. on 04/12/2017 7:08 AM
[2017-04-12] MEDS: CLOPIDOGREL BISULFATE 75 MG TAB PO SCH (09:00)
[2017-04-12] MEDS: ASPIRIN 325 MG TAB PO SCH (09:00)
[2017-04-12] MEDS: PANTOPRAZOLE 40 MG 10ML VIAL IV SCH (09:00)
[2017-04-12] MEDS: VANCOMYCIN 1GM/NS 250 ML 250 ML IV SCH ×2 (09:30→21:23)
[2017-04-12] MEDS ORDERED: FUROSEMIDE INJ 10 MG/ML 4 ML VIAL ONE (11:07)
[2017-04-12] MEDS ORDERED: FUROSEMIDE INJ 10 MG/ML 2 ML VIAL ONE (11:10)
[2017-04-12] MEDS ORDERED: FUROSEMIDE INJ 10 MG/ML 4 ML VIAL IV ONE (12:00)
[2017-04-12] MEDS: HYDRALAZINE HCL 20 MG/ML VIAL IV PRN ×2 (12:35→15:40)
[2017-04-12] MEDS: DEXTROSE 50% SYRINGE 50 ML IV PRN (15:35)
[2017-04-12] MEDS: PROPOFOL IV EMULSION 10MG/ML 100 ML IV SCH (16:50)
[2017-04-12] MEDS: ENOXAPARIN SODIUM INJ 100 MG/ML SYR SC SCH ×2 (17:00→21:28)
[2017-04-12] MEDS: LOSARTAN POTASSIUM 25 MG TAB PO SCH (17:01)
[2017-04-12] MEDS: ATORVASTATIN 40 MG TAB PO SCH (21:23)
[2017-04-12] MEDS: FUROSEMIDE INJ 10 MG/ML 4 ML VIAL IV SCH (21:23)
[2017-04-13] VITALS (94 sets, daily range): BP systolic 113–190; BP diastolic 59–121
[2017-04-13 00:11] LABS: ABG HCO3 13 mmol/L (23-28); ABG PCO2 23 mmHg (41-51); ABG PH 7.37 (7.31-7.41); ABG PO2 101 mmHg (80-105)
[2017-04-13] MEDS: INSULIN REGULAR, HUMAN 3ML VL 100 UNIT in SODIUM CHLORIDE 0.45% 100 ML 100 ML IV SCH ×2 (00:36)
[2017-04-13] MEDS: METOPROLOL TARTRATE 50 MG TAB PO SCH ×5 (00:37→23:46)
[2017-04-13 06:23] LABS: BASOPHILS # (AUTO) 0.1 (0.0-0.1); BASOPHILS % 0.6 % (0.0-1.0); EOSINOPHILS # (AUTO) 0.2 (0.0-0.4); EOSINOPHILS % 2.7 % (0.0-6.0); HEMATOCRIT 30.6 % (34.2-44.1); HEMOGLOBIN 10.1 g/dL (12.0-16.0); LYMPHOCYTES # (AUTO) 1.7 (1.0-3.2); LYMPHOCYTES % 20.2 % (18.0-39.1); MEAN CORPUSCULAR HEMOGLOBIN 28.8 pg (28-32); MEAN CORPUSCULAR VOLUME 87.2 fL (81-99); MONOCYTES # (AUTO) 0.7 (0.2-0.8); NEUTROPHILS # (AUTO) 5.4 (2.1-6.9); NEUTROPHILS % 66.4 % (38.7-80.0); PLATELET COUNT 272 x10e3/uL (140-360); RED BLOOD COUNT 3.51 x10e6/uL (3.6-5.1); RED CELL DISTRIBUTION WIDTH 15.5 % (11.7-14.4)
[2017-04-13] MEDS: PIPER-TAZ 3.375 GM 50 ML IV SCH ×3 (06:26→23:00)
[2017-04-13 06:48] LABS: ALBUMIN 2.1 g/dL (3.5-5.0); ALBUMIN/GLOBULIN RATIO 0.6 (0.8-2.0); ANION GAP 11.9 mmol/L (8-16); CALCIUM 7.8 mg/dL (8.4-10.2); CREATININE, SERUM 1.01 mg/dL (0.57-1.11)
[2017-04-13 06:50] LABS: POTASSIUM 2.9 mmol/L (3.5-5.1)
[2017-04-13] MEDS ORDERED: POTASSIUM CHLORIDE 20MEQ/100ML 200 ML ONE (07:11)
[2017-04-13] MEDS ORDERED: POTASSIUM CHLORIDE 20MEQ/100ML 200 ML IV ONE ×3 (07:15→18:00)
[2017-04-13] MEDS: PANTOPRAZOLE 40 MG 10ML VIAL IV SCH (09:00)
[2017-04-13] MEDS: FUROSEMIDE INJ 10 MG/ML 4 ML VIAL IV SCH ×2 (09:00→22:00)
[2017-04-13] MEDS: CLOPIDOGREL BISULFATE 75 MG TAB PO SCH (09:00)
[2017-04-13] MEDS: ASPIRIN 325 MG TAB PO SCH (09:00)
[2017-04-13] MEDS: LOSARTAN POTASSIUM 25 MG TAB PO SCH (09:00)
[2017-04-13 11:04] LABS: ABG HCO3 19 mmol/L (23-28); ABG PCO2 27 mmHg (41-51); ABG PH 7.47 (7.31-7.41); ABG PO2 91 mmHg (80-105)
--- NOTE | 2017-04-13 12:00 | Diagnostic Imaging Report ---
EXAMINATION: CHEST SINGLE (PORTABLE) INDICATION: \S\FEVER \[id number] \S\[id number] COMPARISON: Chest radiograph 04/12/2017 FINDINGS: AP view TUBES and LINES: * Endotracheal tube 3.6 cm above the rosaline in good position. * Stable positioning of a right internal jugular vein central line. * Stable position nasogastric/orogastric tube. LUNGS: Stable edema and perihilar and bibasilar atelectasis PLEURA: No effusions or pneumothorax. HEART AND MEDIASTINUM: Stable appearance BONES AND SOFT TISSUES: No acute findings. IMPRESSION: Slight retraction of ET tube which remains in good position. Otherwise, stable chest. Signed by: DR. Pablo Nathan MD on 04/13/2017 11:57 AM
[2017-04-13] MEDS: MORPHINE SULFATE 2 MG/ML SYR IV PRN ×2 (15:41→20:30)
[2017-04-13] MEDS ORDERED: SODIUM CHLORIDE 0.9% 250ML 250 ML ONE (16:36)
[2017-04-13] MEDS: ONDANSETRON HCL INJ 2 MG/ML VIAL IV PRN (20:30)
[2017-04-13] MEDS: ENOXAPARIN SODIUM INJ 100 MG/ML SYR SC SCH (22:00)
[2017-04-13] MEDS: ATORVASTATIN 40 MG TAB PO SCH (22:00)
[2017-04-14] VITALS (35 sets, daily range): BP systolic 117–172; BP diastolic 50–110
[2017-04-14 06:07] LABS: BASOPHILS # (AUTO) 0.1 (0.0-0.1); BASOPHILS % 0.7 % (0.0-1.0); EOSINOPHILS # (AUTO) 0.2 (0.0-0.4); EOSINOPHILS % 2.2 % (0.0-6.0); HEMATOCRIT 33.7 % (34.2-44.1); LYMPHOCYTES # (AUTO) 2.3 (1.0-3.2); LYMPHOCYTES % 21.2 % (18.0-39.1); MEAN CORPUSCULAR HEMOGLOBIN 28.7 pg (28-32); MEAN CORPUSCULAR HGB CONC 32.6 g/dL (31-35); MONOCYTES % 9.6 % (4.4-11.3); NEUTROPHILS # (AUTO) 6.9 (2.1-6.9); NEUTROPHILS % 64.2 % (38.7-80.0); PLATELET COUNT 327 x10e3/uL (140-360); RED BLOOD COUNT 3.83 x10e6/uL (3.6-5.1); RED CELL DISTRIBUTION WIDTH 15.4 % (11.7-14.4)
[2017-04-14] MEDS: PIPER-TAZ 3.375 GM 50 ML IV SCH ×3 (06:14→22:10)
[2017-04-14] MEDS: METOPROLOL TARTRATE 50 MG TAB PO SCH ×3 (06:15→17:36)
[2017-04-14 06:36] LABS: ALANINE AMINOTRANSFERASE 19 IU/L (0-55); ALBUMIN 2.4 g/dL (3.5-5.0); ALBUMIN/GLOBULIN RATIO 0.5 (0.8-2.0); ALKALINE PHOSPHATASE 27 IU/L (40-150); ANION GAP 18.4 mmol/L (8-16); BLOOD UREA NITROGEN 11 mg/dL (7-26); BUN/CREATININE RATIO 12 (6-25); CALCIUM 8.7 mg/dL (8.4-10.2); CARBON DIOXIDE 24 mmol/L (22-29); CHLORIDE 105 mmol/L (98-107); EST GLOMERULAR FILTRATION RATE > 60 ML/MIN (60-); GLUCOSE 130 mg/dL (74-118); POTASSIUM 3.4 mmol/L (3.5-5.1); SODIUM 144 mmol/L (136-145)
[2017-04-14 06:56] LABS: BAND NEUTROPHILS % (MANUAL) 1 %; EOSINOPHILS % (MANUAL) 1 % (0-7); LYMPHOCYTES % (MANUAL) 18 % (19-48); MONOCYTES % (MANUAL) 6 % (3.4-9.0); NEUTROPHILS % (MANUAL) 72 % (40-74)
[2017-04-14 06:57] LABS: PLATELET ESTIMATE ADEQUATE; PLATELET MORPHOLOGY COMMENT NORMAL; RBC MORPHOLOGY COMMENT NORMAL
[2017-04-14 06:58] LABS: ANISOCYTOSIS SLIGHT; HYPOCHROMASIA SLIGHT
[2017-04-14] MEDS: ASPIRIN 325 MG TAB PO SCH (09:00)
[2017-04-14] MEDS: CLOPIDOGREL BISULFATE 75 MG TAB PO SCH (09:00)
[2017-04-14] MEDS: LOSARTAN POTASSIUM 25 MG TAB PO SCH (09:00)
[2017-04-14] MEDS: FUROSEMIDE INJ 10 MG/ML 4 ML VIAL IV SCH ×2 (09:09→21:00)
[2017-04-14] MEDS: PANTOPRAZOLE 40 MG 10ML VIAL IV SCH (09:09)
[2017-04-14] MEDS: ENOXAPARIN SODIUM INJ 100 MG/ML SYR SC SCH ×2 (09:10→21:00)
[2017-04-14] MEDS: POTASSIUM CHLORIDE 20MEQ/100ML 100 ML IV SCH ×2 (16:30→19:02)
[2017-04-14] MEDS: MORPHINE SULFATE 2 MG/ML SYR IV PRN ×2 (17:40→21:34)
[2017-04-14] MEDS: INSULIN LISPRO 100 UNIT/1 ML 3ML VIAL SQ SCH ×3 (17:41→21:33)
[2017-04-14] MEDS: ACETAMINOPHEN 325 MG TAB PO PRN (19:30)
[2017-04-14] MEDS: ATORVASTATIN 40 MG TAB PO SCH (21:00)
[2017-04-14] MEDS ORDERED: INSULIN DETEMIR 100 UNIT/ML PEN SQ SCH (21:00)
[2017-04-14] MEDS ORDERED: GUAIFENESIN 600MG/DEXTROMETHORPHAN 30MG TABSR PO PRN (23:45)
[2017-04-15] VITALS (8 sets, daily range): BP systolic 93–158; BP diastolic 53–82
[2017-04-15] MEDS: METOPROLOL TARTRATE 50 MG TAB PO SCH ×4 (00:24→17:00)
[2017-04-15] MEDS: GUAIFENESIN 600MG/DEXTROMETHORPHAN 30MG TABSR PO PRN ×2 (00:24→13:49)
[2017-04-15] MEDS: MORPHINE SULFATE 2 MG/ML SYR IV PRN ×4 (00:40→22:08)
[2017-04-15] MEDS: PIPER-TAZ 3.375 GM 50 ML IV SCH ×3 (05:29→21:23)
[2017-04-15] MEDS: INSULIN LISPRO 100 UNIT/1 ML 3ML VIAL SQ SCH ×6 (07:55→21:24)
[2017-04-15] MEDS: ENOXAPARIN SODIUM INJ 100 MG/ML SYR SC SCH (07:56)
[2017-04-15] MEDS: ASPIRIN 325 MG TAB PO SCH (07:56)
[2017-04-15] MEDS: PANTOPRAZOLE 40 MG 10ML VIAL IV SCH (07:56)
[2017-04-15] MEDS: CLOPIDOGREL BISULFATE 75 MG TAB PO SCH (07:56)
[2017-04-15] MEDS: FUROSEMIDE INJ 10 MG/ML 4 ML VIAL IV SCH ×3 (07:56→22:08)
[2017-04-15] MEDS: LOSARTAN POTASSIUM 25 MG TAB PO SCH (07:56)
[2017-04-15] MEDS: ONDANSETRON HCL INJ 2 MG/ML VIAL IV PRN ×3 (08:05→22:08)
[2017-04-15] MEDS ORDERED: NAPROXEN 250 MG TAB PO PRN (09:45)
[2017-04-15] MEDS ORDERED: SODIUM CHLORIDE 0.9% 250ML 250 ML ONE (13:59)
[2017-04-15] MEDS ORDERED: INSULIN LISPRO 100 UNIT/1 ML 3ML VIAL SQ SCH (16:30)
[2017-04-15] MEDS: APIXABAN 5 MG TABLET PO SCH (16:43)
[2017-04-15] MEDS: ACETAMINOPHEN 325 MG TAB PO PRN (16:45)
[2017-04-15] MEDS ORDERED: APIXAB 2.5 MG TABLET PO SCH (17:00)
[2017-04-15] MEDS ORDERED: INSULIN DETEMIR 100 UNIT/ML PEN SQ SCH ×2 (21:00)
[2017-04-15] MEDS: ATORVASTATIN 40 MG TAB PO SCH (21:23)
[2017-04-16] VITALS: BP 93/65
[2017-04-16 04:00] VITALS: BP 170/74
[2017-04-16] MEDS: PIPER-TAZ 3.375 GM 50 ML IV SCH ×3 (05:08→20:39)
[2017-04-16] MEDS: MORPHINE SULFATE 2 MG/ML SYR IV PRN ×3 (05:09→21:32)
[2017-04-16] MEDS: ONDANSETRON HCL INJ 2 MG/ML VIAL IV PRN ×2 (05:09→21:32)
[2017-04-16] MEDS: METOPROLOL TARTRATE 50 MG TAB PO SCH ×4 (05:48→17:08)
[2017-04-16 08:00] VITALS: BP 142/71
[2017-04-16 08:22] LABS: BASOPHILS # (AUTO) 0.1 (0.0-0.1); BASOPHILS % 0.9 % (0.0-1.0); EOSINOPHILS # (AUTO) 0.3 (0.0-0.4); EOSINOPHILS % 4.2 % (0.0-6.0); HEMATOCRIT 36.8 % (34.2-44.1); HEMOGLOBIN 12.3 g/dL (12.0-16.0); LYMPHOCYTES # (AUTO) 2.5 (1.0-3.2); LYMPHOCYTES % 32.6 % (18.0-39.1); MEAN CORPUSCULAR HEMOGLOBIN 28.6 pg (28-32); MEAN CORPUSCULAR HGB CONC 33.4 g/dL (31-35); MEAN CORPUSCULAR VOLUME 85.6 fL (81-99); MONOCYTES # (AUTO) 0.8 (0.2-0.8); MONOCYTES % 10.8 % (4.4-11.3); NEUTROPHILS # (AUTO) 3.8 (2.1-6.9); NEUTROPHILS % 49.7 % (38.7-80.0); PLATELET COUNT 391 x10e3/uL (140-360); RED CELL DISTRIBUTION WIDTH 14.2 % (11.7-14.4)
[2017-04-16] MEDS: INSULIN LISPRO 100 UNIT/1 ML 3ML VIAL SQ SCH ×6 (08:30→20:38)
[2017-04-16 08:45] LABS: ALBUMIN 2.6 g/dL (3.5-5.0); ALBUMIN/GLOBULIN RATIO 0.6 (0.8-2.0); ANION GAP 18.1 mmol/L (8-16); CALCIUM 8.3 mg/dL (8.4-10.2); CREATININE, SERUM 1.2 mg/dL (0.57-1.11); POTASSIUM 3.1 mmol/L (3.5-5.1)
[2017-04-16 08:48] LABS: BAND NEUTROPHILS % (MANUAL) 1 %; EOSINOPHILS % (MANUAL) 4 % (0-7); LYMPHOCYTES % (MANUAL) 29 % (19-48); MONOCYTES % (MANUAL) 5 % (3.4-9.0); NEUTROPHILS % (MANUAL) 60 % (40-74)
[2017-04-16 08:49] LABS: PLATELET ESTIMATE MODERATELY INCREASED; PLATELET MORPHOLOGY COMMENT NORMAL; RBC MORPHOLOGY COMMENT NORMAL
[2017-04-16] MEDS: CLOPIDOGREL BISULFATE 75 MG TAB PO SCH (09:00)
[2017-04-16] MEDS: LOSARTAN POTASSIUM 25 MG TAB PO SCH (09:00)
[2017-04-16] MEDS: ASPIRIN 81 MG CHEW TAB PO SCH (09:00)
[2017-04-16] MEDS: FUROSEMIDE INJ 10 MG/ML 4 ML VIAL IV SCH ×2 (09:00→20:36)
[2017-04-16] MEDS: APIXABAN 5 MG TABLET PO SCH ×2 (09:00→17:08)
[2017-04-16] MEDS: PANTOPRAZOLE SOD 40 MG TABEC PO SCH (09:00)
[2017-04-16] MEDS: ACETAMINOPHEN 325 MG TAB PO PRN ×2 (09:10→18:35)
[2017-04-16] MEDS ORDERED: POTASSIUM CHLORIDE 20MEQ/100ML 200 ML IV ONE (11:00)
[2017-04-16] MEDS ORDERED: MAGNESIUM SULF 1GRAM/DEXTROSE 100 ML IV ONE (11:00)
[2017-04-16] MEDS ORDERED: MAGNESIUM SULFATE 2GM/50ML 50 ML IV ONE (11:00)
[2017-04-16 12:00] VITALS: BP 139/70
[2017-04-16] MEDS: GUAIFENESIN 600MG/DEXTROMETHORPHAN 30MG TABSR PO PRN (12:48)
[2017-04-16] MEDS ORDERED: ACETAMINOPHEN 325 MG TAB PO PRN (15:00)
[2017-04-16 16:00] VITALS: BP 153/79
[2017-04-16] MEDS ORDERED: INSULIN LISPRO 100 UNIT/1 ML 3ML VIAL SQ SCH (16:30)
[2017-04-16 20:00] VITALS: BP 157/76
[2017-04-16] MEDS: ATORVASTATIN 40 MG TAB PO SCH (20:36)
[2017-04-16] MEDS: MECLIZINE HCL 12.5 MG TAB PO SCH (20:36)
[2017-04-16] MEDS: INSULIN DETEMIR 100 UNIT/ML PEN SQ SCH (20:38)
[2017-04-16] MEDS: CHLORASEPTIC SPRAY 177 ML BTL MM PRN (21:24)
[2017-04-17] VITALS: BP 157/81
[2017-04-17] MEDS: METOPROLOL TARTRATE 50 MG TAB PO SCH ×3 (01:02→12:15)
[2017-04-17 04:00] VITALS: BP 128/58
[2017-04-17] MEDS: PIPER-TAZ 3.375 GM 50 ML IV SCH ×3 (05:39→20:24)
[2017-04-17 06:09] LABS: BASOPHILS # (AUTO) 0.1 (0.0-0.1); EOSINOPHILS # (AUTO) 0.3 (0.0-0.4); HEMATOCRIT 37.4 % (34.2-44.1); HEMOGLOBIN 12.3 g/dL (12.0-16.0); LYMPHOCYTES # (AUTO) 2.4 (1.0-3.2); LYMPHOCYTES % 26.2 % (18.0-39.1); MEAN CORPUSCULAR HEMOGLOBIN 28.5 pg (28-32); MEAN CORPUSCULAR HGB CONC 32.9 g/dL (31-35); MEAN CORPUSCULAR VOLUME 86.6 fL (81-99); MONOCYTES # (AUTO) 0.8 (0.2-0.8); MONOCYTES % 8.7 % (4.4-11.3); NEUTROPHILS # (AUTO) 5.4 (2.1-6.9); NEUTROPHILS % 59.4 % (38.7-80.0); PLATELET COUNT 346 x10e3/uL (140-360); RED BLOOD COUNT 4.32 x10e6/uL (3.6-5.1); RED CELL DISTRIBUTION WIDTH 13.9 % (11.7-14.4)
[2017-04-17 06:28] LABS: ANION GAP 15.1 mmol/L (8-16); CALCIUM 8.3 mg/dL (8.4-10.2); CREATININE, SERUM 1.11 mg/dL (0.57-1.11); MAGNESIUM 1.2 MG/DL (1.3-2.1); POTASSIUM 3.1 mmol/L (3.5-5.1)
[2017-04-17] MEDS: CHLORASEPTIC SPRAY 177 ML BTL MM PRN ×2 (07:20→20:25)
[2017-04-17] MEDS: MORPHINE SULFATE 2 MG/ML SYR IV PRN ×3 (07:20→20:25)
[2017-04-17] MEDS: INSULIN LISPRO 100 UNIT/1 ML 3ML VIAL SQ SCH ×5 (07:30→21:45)
[2017-04-17] MEDS ORDERED: POTASSIUM CHLORIDE 20 MEQ TAB CR PO STA (07:52)
[2017-04-17 08:00] VITALS: BP 152/95
[2017-04-17] MEDS ORDERED: MAGNESIUM SULFATE 2GM/50ML 50 ML IV ONE (08:00)
[2017-04-17] MEDS: PANTOPRAZOLE SOD 40 MG TABEC PO SCH (09:45)
[2017-04-17] MEDS: ASPIRIN 81 MG CHEW TAB PO SCH (09:45)
[2017-04-17] MEDS: APIXABAN 5 MG TABLET PO SCH ×2 (09:45→17:00)
[2017-04-17] MEDS: CLOPIDOGREL BISULFATE 75 MG TAB PO SCH (09:45)
[2017-04-17] MEDS: FUROSEMIDE INJ 10 MG/ML 4 ML VIAL IV SCH ×2 (09:45→20:24)
[2017-04-17] MEDS: LOSARTAN POTASSIUM 25 MG TAB PO SCH (09:45)
[2017-04-17 12:00] VITALS: BP 153/86
[2017-04-17 16:00] VITALS: BP 151/74
[2017-04-17] MEDS: CARVEDILOL 12.5 MG TAB PO SCH (16:59)
[2017-04-17] MEDS: NYSTATIN 15 GM POWDER UD BTL TOP SCH (17:00)
[2017-04-17 20:00] VITALS: BP 140/68
[2017-04-17] MEDS: MECLIZINE HCL 12.5 MG TAB PO SCH (20:24)
[2017-04-17] MEDS: ATORVASTATIN 40 MG TAB PO SCH (20:24)
[2017-04-17] MEDS: GUAIFENESIN 600MG/DEXTROMETHORPHAN 30MG TABSR PO PRN (20:25)
[2017-04-17] MEDS: ONDANSETRON HCL INJ 2 MG/ML VIAL IV PRN (20:25)
[2017-04-17] MEDS: INSULIN DETEMIR 100 UNIT/ML PEN SQ SCH (21:45)
[2017-04-18] VITALS (8 sets, daily range): BP systolic 107–125; BP diastolic 57–80
[2017-04-18] MEDS: PIPER-TAZ 3.375 GM 50 ML IV SCH ×3 (05:57→21:28)
[2017-04-18 07:03] LABS: ALBUMIN 2.5 g/dL (3.5-5.0); ALBUMIN/GLOBULIN RATIO 0.6 (0.8-2.0); ANION GAP 16.7 mmol/L (8-16); CALCIUM 8.2 mg/dL (8.4-10.2); CREATININE, SERUM 1.17 mg/dL (0.57-1.11); POTASSIUM 3.7 mmol/L (3.5-5.1)
[2017-04-18] MEDS: PANTOPRAZOLE SOD 40 MG TABEC PO SCH (07:30)
[2017-04-18] MEDS: INSULIN LISPRO 100 UNIT/1 ML 3ML VIAL SQ SCH ×7 (07:30→21:32)
[2017-04-18] MEDS: CARVEDILOL 12.5 MG TAB PO SCH ×2 (08:00→16:55)
[2017-04-18] MEDS: MORPHINE SULFATE 2 MG/ML SYR IV PRN ×2 (08:30→14:30)
[2017-04-18] MEDS: ONDANSETRON HCL INJ 2 MG/ML VIAL IV PRN (08:30)
[2017-04-18] MEDS: NYSTATIN 15 GM POWDER UD BTL TOP SCH ×2 (09:00→16:55)
[2017-04-18] MEDS: LOSARTAN POTASSIUM 25 MG TAB PO SCH (09:00)
[2017-04-18] MEDS: APIXABAN 5 MG TABLET PO SCH ×2 (09:00→16:55)
[2017-04-18] MEDS: ASPIRIN 81 MG CHEW TAB PO SCH (09:00)
[2017-04-18] MEDS: FUROSEMIDE INJ 10 MG/ML 4 ML VIAL IV SCH ×2 (09:00→21:28)
[2017-04-18] MEDS: CLOPIDOGREL BISULFATE 75 MG TAB PO SCH (09:00)
[2017-04-18] MEDS ORDERED: INSULIN DETEMIR 100 UNIT/ML PEN SQ SCH (21:00)
[2017-04-18] MEDS: MECLIZINE HCL 12.5 MG TAB PO SCH (21:28)
[2017-04-18] MEDS: ATORVASTATIN 40 MG TAB PO SCH (21:28)
[2017-04-18] MEDS: MORPHINE SULFATE 5 MG/ML VIAL IV PRN (22:50)
[2017-04-19 05:27] VITALS: BP 135/65
[2017-04-19] MEDS: PIPER-TAZ 3.375 GM 50 ML IV SCH (05:43)
[2017-04-19] MEDS: INSULIN LISPRO 100 UNIT/1 ML 3ML VIAL SQ SCH ×4 (07:30→11:30)
[2017-04-19] MEDS: PANTOPRAZOLE SOD 40 MG TABEC PO SCH (07:30)
[2017-04-19] MEDS: CARVEDILOL 12.5 MG TAB PO SCH (08:00)
[2017-04-19 08:34] VITALS: BP 147/66
[2017-04-19] MEDS: MORPHINE SULFATE 5 MG/ML VIAL IV PRN (08:35)
[2017-04-19] MEDS: APIXABAN 5 MG TABLET PO SCH (09:00)
[2017-04-19] MEDS: NYSTATIN 15 GM POWDER UD BTL TOP SCH (09:00)
[2017-04-19] MEDS: FUROSEMIDE INJ 10 MG/ML 4 ML VIAL IV SCH (09:00)
[2017-04-19] MEDS: CLOPIDOGREL BISULFATE 75 MG TAB PO SCH (09:00)
[2017-04-19] MEDS: LOSARTAN POTASSIUM 25 MG TAB PO SCH (09:00)
[2017-04-19] MEDS: ASPIRIN 81 MG CHEW TAB PO SCH (09:00)
[2017-04-19 10:26] VITALS: BP 147/66
[2017-04-19 12:26] VITALS: BP 99/42
== END 2017-04-19 13:18 | DRG 853 ==
LOC: ER 15:13 → ERHOLD 19:13 → ICU 04-09 16:15 → IMCU 04-14 13:33 → MED/SURG2 04-15 10:52
PROVIDERS: ADMIT Family Medicine; ATTEND Family Medicine
PROC: 5A1955Z Respiratory Ventilation, Greater than 96 Consecutive Hours (ICD-10-PCS; principal; 2017-04-08)
PROC: 0BH17EZ Insertion of Endotracheal Airway into Trachea, Via Natural or Artificial Opening (ICD-10-PCS; principal; 2017-04-08)
PROC: 3E0 Administration, Physiological Systems and Anatomical Regions, Introduction (ICD-10-PCS; 2017-04-09)
PROC: 027034Z Dilation of Coronary Artery, One Artery with Drug-eluting Intraluminal Device, Percutaneous Approach (ICD-10-PCS; 2017-04-11)
PROC: 4A023N7 Measurement of Cardiac Sampling and Pressure, Left Heart, Percutaneous Approach (ICD-10-PCS; 2017-04-11)
PROC: B2111ZZ Fluoroscopy of Multiple Coronary Arteries using Low Osmolar Contrast (ICD-10-PCS; 2017-04-11)
PROC: 3E013GC Introduction of Other Therapeutic Substance into Subcutaneous Tissue, Percutaneous Approach (ICD-10-PCS; 2017-04-11)
PROC: B2151ZZ Fluoroscopy of Left Heart using Low Osmolar Contrast (ICD-10-PCS; 2017-04-11)
DX: A41.9 Sepsis, unspecified organism (principal); J96.00 Acute respiratory failure, unspecified whether with hypoxia or hypercapnia; I21.4 Non-ST elevation (NSTEMI) myocardial infarction; N17.0 Acute kidney failure with tubular necrosis; I50.23 Acute on chronic systolic (congestive) heart failure; R57.8 Other shock; N17.9 Acute kidney failure, unspecified; I82.439 Acute embolism and thrombosis of unspecified popliteal vein; E87.2 Acidosis; I50.1 Left ventricular failure, unspecified; E11.10 Type 2 diabetes mellitus with ketoacidosis without coma; E86.0 Dehydration; F03.90 Unspecified dementia, unspecified severity, without behavioral disturbance, psychotic disturbance, mood disturbance, and anxiety; E11.40 Type 2 diabetes mellitus with diabetic neuropathy, unspecified; J44.9 Chronic obstructive pulmonary disease, unspecified; I11.0 Hypertensive heart disease with heart failure; E66.9 Obesity, unspecified; Z68.34 Body mass index [BMI] 34.0-34.9, adult; E83.39 Other disorders of phosphorus metabolism; Z79.4 Long term (current) use of insulin; I25.10 Atherosclerotic heart disease of native coronary artery without angina pectoris
CPT/HCPCS: 31500; 36140; 36415; 36600; 71010; 74000; 77002; 80048; 80053; 80061; 80202; 81001; 82270; 82550; 82553; 82805; 82947; 82948; 83036; 83605; 83690; 83735; 83880; 84100; 84295; 84436; 84439; 84443; 84479; 84484; 84520; 85025; 85379; 85610; 85730; 87040; 87070; 87071; 87086; 87186; 87205; 87400; 93005; 93306; 93452; 93458; 93970; 94002; 94003; 96361; 96366; 96367; 97139; C1766; C9600; J0360; J0583; J1650; J1940; J2001; J2250; J2270; J2405; J2543; J3370; J3475; J3480; J7030; J7050; J7799; Q9967

== ENCOUNTER → 2017-05-16 | Outpatient (CLI) | payer OTHER ==
[~2017-05-16] MED LIST changes: +ALPRAZOLAM0.5 MG PO; +ARICEPT5 MG PO; +CARVEDILOL12.5 MG PO; +CLONIDINE HCL0.1 MG PO; +LEVEMIR100 UNIT/1 SQ; +MECLIZINE HCL12.5 MG PO; +NIFEDIPINE ER30 M1 PO; +VENLAFAXINE H37.5 M2 PO
[2017-05-16 18:24] LABS: ANION GAP 20.8 mmol/L (8-16); CALCIUM 9.6 mg/dL (8.4-10.2); CREATININE, SERUM 1.87 mg/dL (0.57-1.11); POTASSIUM 3.8 mmol/L (3.5-5.1)
[2017-05-16 18:27] LABS: BASOPHILS # (AUTO) 0.1 (0.0-0.1); EOSINOPHILS # (AUTO) 0.3 (0.0-0.4); EOSINOPHILS % 4.5 % (0.0-6.0); HEMATOCRIT 35.3 % (34.2-44.1); HEMOGLOBIN 11.5 g/dL (12.0-16.0); LYMPHOCYTES # (AUTO) 2.2 (1.0-3.2); LYMPHOCYTES % 32.1 % (18.0-39.1); MEAN CORPUSCULAR HEMOGLOBIN 28.5 pg (28-32); MEAN CORPUSCULAR HGB CONC 32.6 g/dL (31-35); MEAN CORPUSCULAR VOLUME 87.4 fL (81-99); MONOCYTES # (AUTO) 0.5 (0.2-0.8); MONOCYTES % 6.5 % (4.4-11.3); NEUTROPHILS # (AUTO) 3.8 (2.1-6.9); NEUTROPHILS % 55.5 % (38.7-80.0); PLATELET COUNT 259 x10e3/uL (140-360); RED BLOOD COUNT 4.04 x10e6/uL (3.6-5.1); RED CELL DISTRIBUTION WIDTH 14.2 % (11.7-14.4)
== END ==
LOC: NPA 12:00
DX: Z02.89 Encounter for other administrative examinations (principal)
CPT/HCPCS: 36415; 80048; 85025

== ENCOUNTER 2017-08-07 12:06 | Inpatient (IN) | payer MEDICARE, OTHER ==
[~2017-08-07] VITALS: Ht 160 cm; Wt 90.3 kg
[2017-08-07] MEDS ORDERED: TIZANIDINE HCL4 MG PO (12:26)
[2017-08-07] MEDS ORDERED: HYDROCHLOROTHIAZIDE PO (12:26)
[2017-08-07] MEDS ORDERED: LYRICA75 MG PO (12:26)
[2017-08-07] MEDS ORDERED: NORCO 10-325 T1 EACH PO (12:26)
[2017-08-07] MEDS ORDERED: VALSARTAN PO (12:26)
[2017-08-07] MEDS ORDERED: TORSEMIDE10 MG PO (12:26)
[2017-08-07] MEDS ORDERED: AMLODIPINE PO (12:26)
[2017-08-07] MEDS ORDERED: HYDROCODONE/APAP 10MG-325MG TAB PO NR (12:30)
[2017-08-07] MEDS ORDERED: FUROSEMIDE INJ 10 MG/ML 4 ML VIAL IV NR (13:00)
[2017-08-07 13:16] LABS: BASOPHILS # (AUTO) 0.1 (0.0-0.1); BASOPHILS % 0.9 % (0.0-1.0); EOSINOPHILS # (AUTO) 0.2 (0.0-0.4); EOSINOPHILS % 3.9 % (0.0-6.0); HEMATOCRIT 35.6 % (34.2-44.1); LYMPHOCYTES # (AUTO) 1.8 (1.0-3.2); LYMPHOCYTES % 31.8 % (18.0-39.1); MEAN CORPUSCULAR HEMOGLOBIN 27.6 pg (28-32); MEAN CORPUSCULAR HGB CONC 33.7 g/dL (31-35); MEAN CORPUSCULAR VOLUME 81.8 fL (81-99); MONOCYTES # (AUTO) 0.5 (0.2-0.8); MONOCYTES % 8.2 % (4.4-11.3); NEUTROPHILS # (AUTO) 3.1 (2.1-6.9); NEUTROPHILS % 54.7 % (38.7-80.0); PLATELET COUNT 294 x10e3/uL (140-360); RED BLOOD COUNT 4.35 x10e6/uL (3.6-5.1); RED CELL DISTRIBUTION WIDTH 13.2 % (11.7-14.4)
[2017-08-07 13:21] LABS: CLARITY,URINE CLEAR (CLEAR); COLOR,URINE YELLOW (YELLOW); LEUKOCYTE ESTERASE ,URINE TRACE (NEGATIVE); NITRITE,URINE NEGATIVE (NEGATIVE)
[2017-08-07 13:22] LABS: PROTEIN,URINE DIPSTICK NEGATIVE (NEGATIVE)
[2017-08-07 13:24] LABS: KETONES,URINE 1+ (NEGATIVE)
[2017-08-07 13:25] LABS: BILIRUBIN,URINE NEGATIVE (NEGATIVE); URINE UROBILINOGEN 0.2 mg/dL (0.2 - 1)
[2017-08-07 13:31] LABS: BACTERIA,URINE MANY /HPF; EPITHELIAL CELLS,URINE FEW /LPF; RBC,URINE 0-5 /HPF (0-5); WBC,URINE (MAN) 21-50 /HPF (0-5)
[2017-08-07 13:35] LABS: ALBUMIN 3.4 g/dL (3.5-5.0); ALBUMIN/GLOBULIN RATIO 0.7 (0.8-2.0); ANION GAP 17.4 mmol/L (8-16); CALCIUM 10.4 mg/dL (8.4-10.2); CREATININE, SERUM 1.45 mg/dL (0.57-1.11); POTASSIUM 4.4 mmol/L (3.5-5.1)
--- NOTE | 2017-08-07 13:40 | Diagnostic Imaging Report ---
EXAMINATION: CHEST SINGLE (PORTABLE) INDICATION: Pain all over. COMPARISON: Chest x-ray 04/13/2017. 04/12/2017. FINDINGS: AP view TUBES and LINES: None. LUNGS: Lungs are well inflated. There are bibasilar atelectasis. Slightly more focal left basilar airspace opacity. PLEURA: No pleural effusion or pneumothorax. HEART AND MEDIASTINUM: The cardiomediastinal silhouette is unremarkable. BONES AND SOFT TISSUES: No acute osseous lesion. Multiple healed right rib fracture deformities. Mild to moderate degenerative changes in bilateral shoulders. Soft tissues are unremarkable. UPPER ABDOMEN: No free air under the diaphragm. IMPRESSION: Slightly more focal airspace opacity in the left lung base. Correlate for focal pneumonia. Signed by: Dr. Jesse Sanchez M.D. on 08/07/2017 1:37 PM
[2017-08-07 13:41] LABS: CREATINE KINASE MB 3.5 ng/mL (0-5.0)
[2017-08-07] MEDS ORDERED: CEFTRIAXONE SOD 1 GM VIAL IV ONE (13:45)
[2017-08-07] MEDS ORDERED: MORPHINE SULFATE 4 MG/ML SYR IV STA (14:35)
[2017-08-07] MEDS: ONDANSETRON HCL 4 MG ORAL DISINTEGRATING TAB SL NR ×2 (15:05→18:06)
[2017-08-07] MEDS: MORPHINE SULFATE 2 MG/ML SYR IV NR ×2 (15:05→18:06)
[2017-08-07] MEDS ORDERED: ONDANSETRON HCL 4 MG ORAL DISINTEGRATING TAB SL PRN (15:15)
[2017-08-07 16:37] VITALS: BP 164/75
[2017-08-07] MEDS ORDERED: DEXTROSE 50% SYRINGE 50 ML IV PRN ×2 (17:15→18:00)
[2017-08-07 17:25] VITALS: BP 164/75
[2017-08-07] MEDS ORDERED: CEFTRIAXONE SOD 1 GM VIAL IV SCH (18:00)
[2017-08-07] MEDS: MORPHINE SULFATE 2 MG/ML SYR IV PRN ×2 (18:40→22:43)
[2017-08-07] MEDS: INSULIN DETEMIR 100 UNIT/ML PEN SQ SCH (19:18)
[2017-08-07 20:00] VITALS: BP 160/76
[2017-08-07] MEDS ORDERED: KETOROLAC TROMETHAMINE 30 MG/ML VIAL IV PRN (20:30)
[2017-08-07] MEDS: INSULIN LISPRO 100 UNIT/1 ML 3ML VIAL SQ SCH (21:00)
[2017-08-07] MEDS: CEFTRIAXONE SOD 1 GM VIAL IV SCH (21:00)
[2017-08-08] VITALS (8 sets, daily range): BP systolic 85–186; BP diastolic 50–81
[2017-08-08] MEDS ORDERED: CLONIDINE HCL 0.1 MG TAB PO PRN (00:45)
[2017-08-08] MEDS: HYDROCODONE/APAP 10MG-325MG TAB PO PRN (01:16)
[2017-08-08] MEDS: MORPHINE SULFATE 2 MG/ML SYR IV PRN ×2 (04:35→08:55)
--- NOTE | 2017-08-08 07:38 | History and Physical ---
A 71-year-old female comes in with lower extremity pain and also shortness of breath. The pain started a couple days ago, and maximum severity is about 10/10, and she voices about 8/10. Came into the emergency room and was found to have a urinary tract infection, and admitted for IV antibiotics and also for pain management. The patient had similar symptoms about a months ago and was in the rehab unit for rehabilitation. PAST MEDICAL HISTORY: History of anxiety disorder, history of hypertension, history of hyperlipidemia, history of diabetes mellitus, history of anxiety. The patient recently had a history of sepsis and also ND, history of coronary artery disease. MEDICATIONS: That she takes at home are: 1. Alprazolam 0.5 mg twice a day. 2. Carvedilol 12.5 mg twice a day. 3. Hydrocodone 10 per 325 mg q.8 h. 4. Insulin 35 units daily of Levemir. 5. Pravastatin 80 mg daily. 6. Pregabalin 75 mg daily. 7. Tizanidine 4 mg 3 times a day. 8. Torsemide 10 mg twice a day. 9. Amlodipine. 10. Losartan. 11. Hydrochlorothiazide 1 tab daily. SOCIAL HISTORY: No ETOH. No IV drug abuse. Lives with the in the house. 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 PHYSICAL EXAMINATION GENERAL: The patient is alert and oriented times 3. VITALS: Temperature is 96.6, pulse 115, respirations 20, blood pressure 142/69, O2 sats were 97%. HEENT: Normocephalic and atraumatic. Pupils reactive to light and accommodation. CV: S1 and S2 normal. Regular rhythm. ABDOMEN: Nontender and nondistended. EXTREMITIES: Positive for trace edema. The patient has decreased sensation in the lower extremities. BACK: Positive for paraspinal spasms in both left and right sides. Positive for straight leg raise on both sides. Slight amount of suprapubic tenderness present. LABORATORY VALUES: Initial white count was 5.63, hemoglobin 12, hematocrit 35.6. Chemistry: Sodium of 133, anion gap 17.4, creatinine 1.45. GFR was 36. AST and ALT normal. Troponins have been negative. Albumin was low. Globulin ratio was low. Glucose was 315. MICROBIOLOGY: Urine cultures are pending. The urine showed many bacteria with leukocyte esterase. ASSESSMENT 1. Urinary tract infection. 2. Intractable pain. 3. Low back pain. 4. Diabetes mellitus. 5. Coronary artery disease. 6. Hypertension. 7. Hyperlipidemia. I will restart her home medications. Increase the pregabalin or Lyrica to 75 mg twice a day. Increase the tizanidine to 3 times a day. Also, give her [place] back and morphine for breakthrough pain. Will continue to monitor the patient. Further recommendations per clinical course. Job#: [id number] RADHA
[2017-08-08] MEDS: AMLODIPINE PO SCH (08:24)
[2017-08-08] MEDS: HYDROCHLOROTHIAZIDE PO SCH (08:24)
[2017-08-08] MEDS: VALSARTAN PO SCH (08:24)
[2017-08-08] MEDS: CEFTRIAXONE SOD 1 GM VIAL IV SCH ×2 (08:34→21:24)
[2017-08-08] MEDS: CARVEDILOL 12.5 MG TAB PO SCH ×2 (08:34→17:00)
[2017-08-08] MEDS: TIZANIDINE HCL 4 MG TAB PO SCH ×3 (08:35→21:40)
[2017-08-08] MEDS: ALPRAZOLAM 0.5 MG TAB PO SCH ×2 (08:35→17:32)
[2017-08-08] MEDS: PREGABALIN 75 MG CAP PO SCH ×2 (08:35→17:32)
[2017-08-08] MEDS: TORSEMIDE 10 MG TAB PO SCH ×2 (08:35→17:00)
[2017-08-08] MEDS ORDERED: TIZANIDINE HCL 4 MG TAB PO SCH (09:00)
[2017-08-08] MEDS ORDERED: VALSARTAN PO SCH (09:00)
[2017-08-08] MEDS ORDERED: PREGABALIN 75 MG CAP PO SCH (09:00)
[2017-08-08] MEDS ORDERED: HYDROCHLOROTHIAZIDE PO SCH (09:00)
[2017-08-08] MEDS ORDERED: AMLODIPINE PO SCH (09:00)
[2017-08-08] MEDS: INSULIN DETEMIR 100 UNIT/ML PEN SQ SCH (09:17)
[2017-08-08] MEDS: INSULIN LISPRO 100 UNIT/1 ML 3ML VIAL SQ SCH ×4 (09:17→21:59)
[2017-08-08] MEDS: ENOXAPARIN SOD INJ 40 MG/0.4 ML SYR SC SCH (17:32)
[2017-08-08] MEDS: SODIUM CHLORIDE 0.9% 1000ML 1,000 ML IV SCH (19:48)
[2017-08-08] MEDS ORDERED: SIMVASTATIN 80 MG TAB PO SCH (21:00)
[2017-08-08] MEDS: SIMVASTATIN 40 MG TAB PO SCH (21:25)
[2017-08-09] VITALS (9 sets, daily range): BP systolic 98–113; BP diastolic 50–59
[2017-08-09] MEDS: HYDROCODONE/APAP 10MG-325MG TAB PO PRN ×2 (04:35→14:50)
--- NOTE | 2017-08-09 06:35 | Diagnostic Imaging Report ---
EXAMINATION: CHEST SINGLE (PORTABLE) INDICATION: Shortness of breath COMPARISON: 08/07/2017 FINDINGS: TUBES and LINES: None. LUNGS: Lungs are well inflated. Lungs are clear. There is no evidence of pneumonia or pulmonary edema. PLEURA: No pleural effusion or pneumothorax. HEART AND MEDIASTINUM: The cardiomediastinal silhouette is unremarkable. BONES AND SOFT TISSUES: No acute osseous lesion. Soft tissues are unremarkable. UPPER ABDOMEN: No free air under the diaphragm. IMPRESSION: No acute thoracic abnormality. Signed by: Dr. Vasu Matias M.D. on 08/09/2017 6:32 AM
[2017-08-09 07:03] LABS: BASOPHILS # (AUTO) 0.1 (0.0-0.1); BASOPHILS % 0.9 % (0.0-1.0); EOSINOPHILS # (AUTO) 0.4 (0.0-0.4); EOSINOPHILS % 5.6 % (0.0-6.0); HEMATOCRIT 33.7 % (34.2-44.1); HEMOGLOBIN 11.2 g/dL (12.0-16.0); LYMPHOCYTES # (AUTO) 2.6 (1.0-3.2); LYMPHOCYTES % 34.8 % (18.0-39.1); MEAN CORPUSCULAR HEMOGLOBIN 27.9 pg (28-32); MEAN CORPUSCULAR HGB CONC 33.2 g/dL (31-35); MONOCYTES # (AUTO) 0.6 (0.2-0.8); NEUTROPHILS # (AUTO) 3.8 (2.1-6.9); NEUTROPHILS % 50.2 % (38.7-80.0); PLATELET COUNT 263 x10e3/uL (140-360); RED BLOOD COUNT 4.01 x10e6/uL (3.6-5.1); RED CELL DISTRIBUTION WIDTH 13.4 % (11.7-14.4)
[2017-08-09 07:49] LABS: ANION GAP 19.2 mmol/L (8-16); POTASSIUM 4.2 mmol/L (3.5-5.1)
[2017-08-09 07:55] LABS: CALCIUM 8.7 mg/dL (8.4-10.2); CREATININE, SERUM 2.8 mg/dL (0.57-1.11)
[2017-08-09] MEDS: CARVEDILOL 12.5 MG TAB PO SCH ×2 (08:10→16:18)
[2017-08-09] MEDS: VALSARTAN PO SCH (08:12)
[2017-08-09] MEDS: HYDROCHLOROTHIAZIDE PO SCH (08:12)
[2017-08-09] MEDS: AMLODIPINE PO SCH (08:12)
[2017-08-09] MEDS: CEFTRIAXONE SOD 1 GM VIAL IV SCH ×2 (08:24→20:09)
[2017-08-09] MEDS: INSULIN LISPRO 100 UNIT/1 ML 3ML VIAL SQ SCH ×4 (08:24→20:15)
[2017-08-09] MEDS: TORSEMIDE 10 MG TAB PO SCH ×2 (08:24→17:06)
[2017-08-09] MEDS: TIZANIDINE HCL 4 MG TAB PO SCH ×3 (08:24→20:09)
[2017-08-09] MEDS: ALPRAZOLAM 0.5 MG TAB PO SCH ×2 (08:24→17:06)
[2017-08-09] MEDS: INSULIN DETEMIR 100 UNIT/ML PEN SQ SCH (08:24)
[2017-08-09] MEDS: PREGABALIN 75 MG CAP PO SCH ×2 (08:24→17:06)
[2017-08-09] MEDS: SODIUM CHLORIDE 0.9% 1000ML 1,000 ML IV SCH ×2 (08:27→20:26)
[2017-08-09] MEDS ORDERED: SODIUM CHLORIDE 0.9% 500ML 500 ML IV ONE (11:30)
[2017-08-09] MEDS: ENOXAPARIN SOD INJ 40 MG/0.4 ML SYR SC SCH (17:06)
[2017-08-09] MEDS: SIMVASTATIN 40 MG TAB PO SCH (20:09)
[2017-08-10] VITALS: BP 123/59
[2017-08-10] MEDS: HYDROCODONE/APAP 10MG-325MG TAB PO PRN (02:37)
[2017-08-10 04:00] VITALS: BP 114/56
[2017-08-10 06:40] LABS: BASOPHILS # (AUTO) 0.1 (0.0-0.1); BASOPHILS % 1.2 % (0.0-1.0); EOSINOPHILS # (AUTO) 0.3 (0.0-0.4); EOSINOPHILS % 5.6 % (0.0-6.0); HEMATOCRIT 35.8 % (34.2-44.1); HEMOGLOBIN 12.3 g/dL (12.0-16.0); LYMPHOCYTES # (AUTO) 2.2 (1.0-3.2); LYMPHOCYTES % 36.7 % (18.0-39.1); MEAN CORPUSCULAR HEMOGLOBIN 27.8 pg (28-32); MEAN CORPUSCULAR HGB CONC 34.4 g/dL (31-35); MONOCYTES # (AUTO) 0.5 (0.2-0.8); MONOCYTES % 8.6 % (4.4-11.3); NEUTROPHILS # (AUTO) 2.9 (2.1-6.9); NEUTROPHILS % 47.2 % (38.7-80.0); PLATELET COUNT 287 x10e3/uL (140-360); RED BLOOD COUNT 4.42 x10e6/uL (3.6-5.1); RED CELL DISTRIBUTION WIDTH 12.8 % (11.7-14.4)
[2017-08-10 07:12] LABS: POTASSIUM 3.8 mmol/L (3.5-5.1)
[2017-08-10 07:13] LABS: ANION GAP 17.8 mmol/L (8-16); CALCIUM 8.6 mg/dL (8.4-10.2); CREATININE, SERUM 1.81 mg/dL (0.57-1.11)
[2017-08-10 08:00] VITALS: BP 143/63
[2017-08-10] MEDS: AMLODIPINE PO SCH (09:00)
[2017-08-10] MEDS ORDERED: MORPHINE SULFATE 2 MG/ML SYR IV PRN (09:00)
[2017-08-10] MEDS: VALSARTAN PO SCH (09:00)
[2017-08-10] MEDS: HYDROCHLOROTHIAZIDE PO SCH (09:00)
[2017-08-10 09:35] VITALS: BP 143/63
[2017-08-10] MEDS: CEFTRIAXONE SOD 1 GM VIAL IV SCH (09:42)
[2017-08-10] MEDS: INSULIN LISPRO 100 UNIT/1 ML 3ML VIAL SQ SCH ×3 (09:42→17:44)
[2017-08-10] MEDS: SODIUM CHLORIDE 0.9% 1000ML 1,000 ML IV SCH (09:43)
[2017-08-10] MEDS: TIZANIDINE HCL 4 MG TAB PO SCH ×2 (09:43→17:44)
[2017-08-10] MEDS: ALPRAZOLAM 0.5 MG TAB PO SCH ×2 (09:43→17:44)
[2017-08-10] MEDS: PREGABALIN 75 MG CAP PO SCH ×2 (09:43→17:44)
[2017-08-10] MEDS: INSULIN DETEMIR 100 UNIT/ML PEN SQ SCH (09:43)
[2017-08-10] MEDS: TORSEMIDE 10 MG TAB PO SCH ×2 (09:43→17:00)
[2017-08-10] MEDS: CARVEDILOL 12.5 MG TAB PO SCH ×3 (09:43→17:44)
[2017-08-10] MEDS ORDERED: POLYETHYLENE GLYCOL 3350 17 GM PACK PO PRN (10:00)
[2017-08-10 12:00] VITALS: BP 82/46
[2017-08-10 16:00] VITALS: BP 107/54
[2017-08-10] MEDS: ENOXAPARIN SOD INJ 40 MG/0.4 ML SYR SC SCH (17:44)
[2017-08-10] MEDS ORDERED: SIMVASTATIN 80 MG TAB PO SCH (21:00)
== END 2017-08-10 19:54 | DRG 689 ==
LOC: ER 12:18 → ERHOLD 15:21 → MED/SURG3 15:24
PROVIDERS: ADMIT Family Medicine; ATTEND Family Medicine
DX: N39.0 Urinary tract infection, site not specified (principal); G93.41 Metabolic encephalopathy; E87.1 Hypo-osmolality and hyponatremia; N17.9 Acute kidney failure, unspecified; G89.29 Other chronic pain; I25.2 Old myocardial infarction; I25.10 Atherosclerotic heart disease of native coronary artery without angina pectoris; E78.5 Hyperlipidemia, unspecified; E86.0 Dehydration; E11.65 Type 2 diabetes mellitus with hyperglycemia; Z79.4 Long term (current) use of insulin; E11.22 Type 2 diabetes mellitus with diabetic chronic kidney disease; I12.9 Hypertensive chronic kidney disease with stage 1 through stage 4 chronic kidney disease, or unspecified chronic kidney disease; N18.3 Chronic kidney disease, stage 3 (moderate)
CPT/HCPCS: 36415; 51700; 71045; 80048; 80053; 81001; 82550; 82553; 82948; 83735; 83880; 84484; 85025; 87086; 87186; 93005; 96361; 99284; J0696; J1650; J1885; J1940; J2270; J7030

== ENCOUNTER 2017-09-17 10:33 | Emergency (ER) | payer MEDICARE, OTHER ==
[~2017-09-17] VITALS: Ht 160 cm; Wt 90.3 kg
[~2017-09-17 10:33] MED LIST changes: +AMLODIPINE PO; +HYDROCHLOROTHIAZIDE PO; +LYRICA75 MG PO; +NORCO 10-325 T1 EACH PO; +TIZANIDINE HCL4 MG PO; +TORSEMIDE10 MG PO; +VALSARTAN PO
[2017-09-17] MEDS ORDERED: SODIUM CHLORIDE 0.9% 1000ML 1,000 ML IV STA (10:46)
[2017-09-17] MEDS ORDERED: LORAZEPAM INJ 2 MG/ML VIAL IV ONE (11:00)
[2017-09-17 11:22] LABS: BASOPHILS % 0.7 % (0.0-1.0); EOSINOPHILS # (AUTO) 0.2 (0.0-0.4); EOSINOPHILS % 2.6 % (0.0-6.0); HEMATOCRIT 41.8 % (34.2-44.1); HEMOGLOBIN 14.3 g/dL (12.0-16.0); LYMPHOCYTES # (AUTO) 1.5 (1.0-3.2); MEAN CORPUSCULAR HEMOGLOBIN 27.2 pg (28-32); MEAN CORPUSCULAR HGB CONC 34.2 g/dL (31-35); MEAN CORPUSCULAR VOLUME 79.6 fL (81-99); MONOCYTES # (AUTO) 0.4 (0.2-0.8); MONOCYTES % 7.6 % (4.4-11.3); NEUTROPHILS # (AUTO) 3.5 (2.1-6.9); NEUTROPHILS % 62.2 % (38.7-80.0); PLATELET COUNT 245 x10e3/uL (140-360); RED BLOOD COUNT 5.25 x10e6/uL (3.6-5.1); RED CELL DISTRIBUTION WIDTH 13.2 % (11.7-14.4)
[2017-09-17] MEDS ORDERED: PRAVASTATIN SOD40 MG PO (11:27)
[2017-09-17] MEDS ORDERED: NITROFURANTOIN100 M1 PO (11:27)
--- NOTE | 2017-09-17 11:29 | Diagnostic Imaging Report ---
EXAM: XR CHEST 1 VIEW DATE: 09/17/2017 10:46 AM INDICATION: Coughing COMPARISON: 08/09/2017 FINDINGS: Lines and Tubes: None Heart and Mediastinum: No acute cardiomediastinal findings. Lungs and Pleura: Minimal opacities in the lung bases statistically represent atelectasis, however, infectious process could have a similar appearance. Bones and Soft Tissues: No acute findings. IMPRESSION: 1. Probable basilar atelectasis. Signed by: Dr. Eldon Nur MD on 09/17/2017 11:26 AM
[2017-09-17 11:42] LABS: ALANINE AMINOTRANSFERASE 22 IU/L (0-55); ALBUMIN 3.9 g/dL (3.5-5.0); ALBUMIN/GLOBULIN RATIO 0.8 (0.8-2.0); ALKALINE PHOSPHATASE 21 IU/L (40-150); ANION GAP 17.9 mmol/L (8-16); BLOOD UREA NITROGEN 15 mg/dL (7-26); BUN/CREATININE RATIO 13 (6-25); CALCIUM 10.5 mg/dL (8.4-10.2); CARBON DIOXIDE 23 mmol/L (22-29); CHLORIDE 99 mmol/L (98-107); CREATINE KINASE 94 IU/L (29-168); CREATININE, SERUM 1.14 mg/dL (0.57-1.11); EST GLOMERULAR FILTRATION RATE 47 ML/MIN (60-); GLUCOSE 227 mg/dL (74-118); POTASSIUM 3.9 mmol/L (3.5-5.1); SODIUM 136 mmol/L (136-145)
[2017-09-17 12:01] LABS: CLARITY,URINE HAZY (CLEAR); COLOR,URINE YELLOW (YELLOW)
[2017-09-17 12:02] LABS: BILIRUBIN,URINE NEGATIVE (NEGATIVE); KETONES,URINE NEGATIVE (NEGATIVE); LEUKOCYTE ESTERASE ,URINE NEGATIVE (NEGATIVE); NITRITE,URINE NEGATIVE (NEGATIVE); PROTEIN,URINE DIPSTICK NEGATIVE (NEGATIVE); URINE UROBILINOGEN 0.2 mg/dL (0.2 - 1)
[2017-09-17 12:03] LABS: BACTERIA,URINE FEW /HPF; EPITHELIAL CELLS,URINE FEW /LPF; RBC,URINE 0-5 /HPF (0-5); WBC,URINE (MAN) 0-5 /HPF (0-5)
[2017-09-17 14:31] VITALS: BP 165/80
== END 2017-09-17 14:20 | disposition home or self-care (01) ==
LOC: ER 10:33
DX: F41.1 Generalized anxiety disorder (principal); I10 Essential (primary) hypertension; E11.9 Type 2 diabetes mellitus without complications; I25.2 Old myocardial infarction
CPT/HCPCS: 36415; 71045; 80053; 81001; 82550; 82553; 83605; 84484; 85025; 87086; 93005; 99284; J2060; J7030

== ENCOUNTER 2017-11-07 12:00 | Inpatient (IN) | payer MEDICARE, OTHER ==
[~2017-11-07] VITALS: Ht 160 cm; Wt 91.3 kg
[~2017-11-07 12:00] MED LIST changes: +NITROFURANTOIN100 M1 PO; +PRAVASTATIN SOD40 MG PO
[2017-11-07 13:38] LABS: BASOPHILS # (AUTO) 0.1 (0.0-0.1); BASOPHILS % 0.9 % (0.0-1.0); EOSINOPHILS # (AUTO) 0.3 (0.0-0.4); EOSINOPHILS % 4.4 % (0.0-6.0); HEMATOCRIT 36.8 % (34.2-44.1); HEMOGLOBIN 12.6 g/dL (12.0-16.0); LYMPHOCYTES # (AUTO) 2.6 (1.0-3.2); LYMPHOCYTES % 38.1 % (18.0-39.1); MEAN CORPUSCULAR HEMOGLOBIN 27.8 pg (28-32); MEAN CORPUSCULAR HGB CONC 34.2 g/dL (31-35); MEAN CORPUSCULAR VOLUME 81.1 fL (81-99); MONOCYTES # (AUTO) 0.6 (0.2-0.8); NEUTROPHILS # (AUTO) 3.2 (2.1-6.9); NEUTROPHILS % 47.2 % (38.7-80.0); PLATELET COUNT 218 x10e3/uL (140-360); RED BLOOD COUNT 4.54 x10e6/uL (3.6-5.1); RED CELL DISTRIBUTION WIDTH 14.9 % (11.7-14.4)
[2017-11-07] MEDS ORDERED: ONDANSETRON HCL INJ 2 MG/ML VIAL IV PRN ×3 (13:45→16:30)
[2017-11-07] MEDS ORDERED: PROMETHAZINE 12.5MG/ NACL 0.9% 12.5 MG/50 ML BAG IV PRN (13:45)
[2017-11-07] MEDS ORDERED: PIPERACILLIN/TAZO 4.5 GM 100 ML IV ONE (13:45)
[2017-11-07] MEDS ORDERED: DIATRIZOATE MEGL/DIATRIZOA SOD 30 ML BTL PO ONE (13:49)
[2017-11-07 13:51] LABS: ALBUMIN 3.7 g/dL (3.5-5.0); ALBUMIN/GLOBULIN RATIO 0.9 (0.8-2.0); ANION GAP 20.8 mmol/L (8-16); CALCIUM 9.6 mg/dL (8.4-10.2); MAGNESIUM 1.8 MG/DL (1.3-2.1); POTASSIUM 3.8 mmol/L (3.5-5.1)
[2017-11-07] MEDS: MORPHINE SULFATE 2 MG/ML SYR IV PRN (14:03)
[2017-11-07 14:58] LABS: BILIRUBIN,URINE NEGATIVE (NEGATIVE); CLARITY,URINE SL CLOUDY (CLEAR); COLOR,URINE YELLOW (YELLOW); KETONES,URINE NEGATIVE (NEGATIVE); LEUKOCYTE ESTERASE ,URINE TRACE (NEGATIVE); NITRITE,URINE NEGATIVE (NEGATIVE); PROTEIN,URINE DIPSTICK NEGATIVE (NEGATIVE); URINE UROBILINOGEN 0.2 mg/dL (0.2 - 1)
[2017-11-07 15:10] LABS: BACTERIA,URINE FEW /HPF; EPITHELIAL CELLS,URINE MANY /LPF; MUCUS,URINE MANY (RARE); RBC,URINE 0-5 /HPF (0-5)
--- NOTE | 2017-11-07 15:44 | Diagnostic Imaging Report ---
EXAM: CT Abdomen and Pelvis WITHOUT contrast INDICATION: \S\Left sided p, diverticulitis,sbo, panreatitis, hernia, rup \[id number] \S\1501 \S\Y COMPARISON: None. TECHNIQUE: Abdomen and pelvis were scanned utilizing a multidetector helical scanner from the lung base to the pubic symphysis without administration of IV contrast. Absence of intravenous contrast decreases sensitivity for detection of focal lesions and vascular pathology. Coronal and sagittal reformations were obtained. Routine protocol was performed. IV CONTRAST: None ORAL CONTRAST: Gastroview COMPLICATIONS: None RADIATION DOSE: Total DLP: 726.69 mGy*cm Estimated effective dose: (DLP x 0.015 x size factor) mSv CTDIvol has been reviewed. It is below the limits set by the Radiation Protocol Committee (RPC). FINDINGS: LINES and TUBES: None. LOWER THORAX: Unremarkable. Partially seen mitral valve calcification. HEPATOBILIARY: Unenhanced liver is unremarkable. No biliary ductal dilation. GALLBLADDER: Fundal dependent hyperdensity, likely small gallstones. No wall thickening. SPLEEN: No splenomegaly. PANCREAS: No focal masses or ductal dilatation. Fatty involution. ADRENALS: No adrenal nodules KIDNEYS/URETERS: No hydronephrosis. Multiple hypodense left renal lesions cannot be characterized on this noncontrast study. For example 1.8 cm posterior lower pole lesion (series 2, image 29). 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 No stones. GI TRACT: No abnormal distention, wall thickening, or evidence of bowel obstruction. There are diverticula within the colon without evidence of diverticulitis. Appendix is normal. PELVIC ORGANS/BLADDER: Hysterectomy. Bladder is under distended, limiting evaluation. LYMPH NODES: No lymphadenopathy. VESSELS: Unremarkable. PERITONEUM / RETROPERITONEUM: No free air or fluid. BONES: Partially seen intramedullary left femoral nail and neck screw. SOFT TISSUES: Moderate size fat-containing left inguinal hernia. IMPRESSION: 1. Limited study without intravenous contrast. 2. No nephrolithiasis or evidence of obstructive urolithiasis. 3. Colonic diverticulosis without evidence of diverticulitis. 4. Moderate size fat-containing left inguinal hernia. 5. Cholelithiasis without evidence of cholecystitis. 6. Multiple left renal lesions cannot be characterized on this unenhanced study. Recommend renal ultrasound for further evaluation. Signed by: Dr. Alex Ramos MD on 11/07/2017 3:40 PM
[2017-11-07] MEDS ORDERED: SODIUM CHLORIDE 0.9% 1000ML 1,000 ML ONE (16:07)
[2017-11-07] MEDS: SODIUM CHLORIDE 0.9% 1000ML 1,000 ML IV SCH ×6 (16:11→23:22)
[2017-11-07] MEDS ORDERED: NALOXONE HCL INJ 0.4 MG/ML AMP ONE (16:26)
[2017-11-07] MEDS ORDERED: NALOXONE HCL INJ 0.4 MG/ML AMP IV STA (16:28)
[2017-11-07] MEDS ORDERED: DIPHENHYDRAMINE HCL 25 MG CAP PO PRN (16:30)
[2017-11-07] MEDS ORDERED: HYDRALAZINE HCL 20 MG/ML VIAL IV PRN (16:30)
[2017-11-07] MEDS ORDERED: LACTULOSE SYRUP 20 GM/30 ML UDC PO PRN (16:30)
[2017-11-07] MEDS ORDERED: NALOXONE HCL INJ 0.4 MG/ML AMP IV PRN (16:30)
[2017-11-07] MEDS ORDERED: CLONIDINE HCL 0.1 MG TAB PO PRN (16:30)
[2017-11-07] MEDS ORDERED: DEXTROSE 50% SYRINGE 50 ML IV PRN (16:45)
[2017-11-07] MEDS: FAMOTIDINE 20 MG/2 ML VIAL IV SCH (17:42)
--- NOTE | 2017-11-07 19:23 | Consultation ---
DATE OF CONSULTATION: REASON FOR CONSULTATION: Acute kidney injury. HISTORY OF PRESENT ILLNESS: Patient currently in the emergency room, had IV morphine and now, is very sleepy, unable to keep awake and gives me any history. The history is obtained from other doctors and talking to Dr. Schmidt at emergency room. Patient is a 71-year-old female with past medical history of anxiety disorder, hypertension, hyperlipidemia, diabetes type 2, anxiety, coronary artery disease, who came to the emergency room with left flank pain for about a week. Patient was recently admitted in August with urinary tract infection with Klebsiella and was treated with IV antibiotic. Patient was started on Cipro for UTI since last Tuesday, but her symptoms were not getting better. Also, has been having some nausea and vomiting, came to emergency room for further evaluation. Blood pressure was found to be 116/61 with a pulse of 73, temperature was at 99.0. Patient was found to be in acute kidney injury with creatinine of 3 and baseline creatinine from August 2017 was 1.1. White cell count is normal. CT of abdomen and pelvis without IV contrast done that showed no evidence of obstructive urolithiasis, colonic diverticulosis, left inguinal hernia, cholelithiasis without evidence of cholecystitis, multiple left renal lesions cannot be characterized. Recommend renal ultrasound. Patient also had a UA done that showed trace leukocyte esterase. WBC count is 6-10 and many mucus. Patient got IV morphine and with that, the blood pressure dropped, patient had to get Narcan and got 1 L normal saline bolus and currently normal saline at 125 mL an hour. Patient is currently very sleepy and also, falls back to sleep very easily. No family member is at bedside. Unknown whether there is any history of any NSAID use. PAST MEDICAL HISTORY: As above. SOCIAL HISTORY: No history of tobacco, alcohol, intravenous drug abuse. Lives at home with her . FAMILY HISTORY: No history of any kidney disease. PAST SURGICAL HISTORY: None. REVIEW OF SYSTEMS: Unable to obtain, but, apparently, was having left flank pain. PHYSICAL EXAM VITAL SIGNS: During my evaluation, blood pressure 90/57, pulse of 81, respirations 20, temperature 99.0, on 2 L nasal cannula saturating 98%. GENERAL: The patient is sleeping, arousable, just got morphine, not in apparent distress. HEENT: PERRLA. Extraocular muscles intact. NECK: No elevated JVD. HEART: S1, S2. LUNGS: Scattered rales bilaterally. ABDOMEN: Soft. Bowel sounds positive. EXTREMITIES: No edema. NEUROLOGIC: Moves all extremities. LABS: White count 6.7, hemoglobin 12.6, platelet count is 218,000. INR is 1.06. Sodium 138, potassium 3.3, chloride 97, CO2 24, BUN 71, creatinine 3.0, glucose is 92, albumin 3.7. LFTs within normal range. UA as per HPI. Urine culture pending. CT of abdomen and pelvis as per HPI. MEDICATIONS AT HOME: Alprazolam, carvedilol, [place], insulin, nitrofurantoin, pravastatin, pregabalin, tizanidine, torsemide, amlodipine, valsartan, hydrochlorothiazide, and apparently, patient was on ciprofloxacin starting last Tuesday. ASSESSMENT AND PLAN 1. Acute kidney injury. Baseline creatinine from August of 2017 is 1.1. Need to rule out renal insufficiency from nausea, vomiting versus acute interstitial nephritis from ciprofloxacin. Will hold all nephrotoxic medications and diuretics for now including valsartan, hydrochlorothiazide, torsemide, and ciprofloxacin. Agree with IV fluids. will check urine eosinophils and urine electrolytes. Repeat the labs in the morning. Avoid nephrotoxic medications. 2. Hypertension. Currently blood pressure is low. Hold off on all blood pressure medicines. 3. Diabetes, type 2, per primary team. 4. Left flank pain with left renal questionable cyst. Will order a renal ultrasound. Follow up on the urine culture before starting any antibiotic at this point. 5. Further recommendation depending on the patient's hospital course. Discussed with ER physician, Dr. Schmidt. . I want to thank Dr. Real for the consult, letting us participate in the care of this patient. Will follow the patient with you. Job#: [id number] CQ [id number]
--- NOTE | 2017-11-07 19:36 | History and Physical ---
This 71-year-old female comes in with lethargy, pain and cramping in the left lower quadrant and left side of the back. HISTORY OF PRESENT ILLNESS: Ms. Ovalles has a history of uncontrolled diabetes. She was doing well until a week prior to admission. The patient came into the clinic and was diagnosed with urinary tract infection. She was treated with Cipro, but the patient's symptoms got worse, and she came to the emergency room with left flank pain. The patient was admitted for urinary tract infection, severe sepsis and hypertension. PAST MEDICAL HISTORY 1. History of hypertension. 2. History of anxiety. 3. History of diabetes mellitus. 4. History of coronary artery disease with stent. 5. History of neuropathy. 6. History of chronic pain syndrome. MEDICATIONS: She takes at home: 1. Alprazolam 0.5 mg twice a day. 2. Carvedilol 25 mg twice a day. 3. Hydrocodone 10 per 325 q.8 h. p.r.n. 4. Levemir 35 units daily. 5. Macrobid 100 mg daily. 6. Pravastatin 40 mg daily. 7. Lyrica 75 mg daily. 8. Tizanidine 5 mg at nighttime. 9. Torsemide 10 mg b.i.d. 10. Amlodipine and hydrochlorothiazide 1 tablet p.o. daily. PAST SURGICAL HISTORY 1. History of hip surgery. 2. Recently admitted for coronary artery disease with stent with respiratory failure. 3. History of cholecystectomy. REVIEW OF SYSTEMS: Negative for chest pain. Positive for some shortness of breath. No nausea, vomiting, diarrhea. No constipation. No rectal bleeding. No hematochezia or hematemesis. PHYSICAL EXAMINATION GENERAL: Alert and oriented times 2. HEENT: Normocephalic and atraumatic. Patient has missing teeth. CVS: S1 and S2 normal, regular rate and rhythm. LUNGS: Decreased air entry in all lung trimble. ABDOMEN: Tender in the left lower quadrant and also CVA tenderness positive. EXTREMITIES: No clubbing. No cyanosis. Possible onychomycosis and decreased pulses. LABORATORY VALUES: White count 6.7, hemoglobin 12.6, neutrophil count 3.2. Chemistries: Sodium 138, BUN 71, creatinine 3.0, estimated GFR 15. Amylase and lipase 62 and 26. Urine showed trace leukocyte esterase, white count 6-10. Urine showed also mucus. IMAGING STUDIES: Abdominal CT showed limited study without intravenous contrast. No nephrolithiasis. Colonic diverticulosis. Moderate-size, fat-containing, inguinal hernia. Multiple left renal lesions cannot be characterized on this unenhanced study. ASSESSMENT: Urosepsis. The patient has been started on antibiotics. The patient is hypertensive. We will go ahead and bolus her another liter at 125 mL an hour. Hold her home medications for blood pressure. The patient has been started on Zosyn q.8 h. renal dosing. Consult with Dr. Grover is being done for her acute kidney injury on chronic kidney disease. Will continue to monitor the patient. Cultures will be done. Restart her antidiabetic medication. Further recommendations per clinical course. She will be sent to the IMCU with continuous monitoring. Job#: [id number]
[2017-11-07] MEDS ORDERED: PRAVASTATIN 20 MG TAB PO SCH (21:00)
[2017-11-07] MEDS: PIPERACILLIN/TAZO 2.25 GM 50 ML IV SCH (23:08)
[2017-11-07] MEDS: INSULIN LISPRO 100 UNIT/1 ML 3ML VIAL SQ SCH (23:08)
[2017-11-08] VITALS (19 sets, daily range): BP systolic 94–136; BP diastolic 37–86
[2017-11-08] MEDS: SODIUM CHLORIDE 0.9% 1000ML 1,000 ML IV SCH ×26 (00:23→20:00)
[2017-11-08] MEDS: TRAMADOL HCL 50 MG TAB PO PRN ×3 (03:30→20:01)
[2017-11-08 05:11] LABS: BASOPHILS # (AUTO) 0.1 (0.0-0.1); BASOPHILS % 0.8 % (0.0-1.0); EOSINOPHILS # (AUTO) 0.2 (0.0-0.4); EOSINOPHILS % 3.2 % (0.0-6.0); HEMATOCRIT 32.8 % (34.2-44.1); LYMPHOCYTES % 31.6 % (18.0-39.1); MEAN CORPUSCULAR HEMOGLOBIN 27.4 pg (28-32); MEAN CORPUSCULAR HGB CONC 33.5 g/dL (31-35); MEAN CORPUSCULAR VOLUME 81.8 fL (81-99); MONOCYTES # (AUTO) 0.5 (0.2-0.8); MONOCYTES % 7.6 % (4.4-11.3); NEUTROPHILS # (AUTO) 3.5 (2.1-6.9); NEUTROPHILS % 56.5 % (38.7-80.0); PLATELET COUNT 188 x10e3/uL (140-360); RED BLOOD COUNT 4.01 x10e6/uL (3.6-5.1); RED CELL DISTRIBUTION WIDTH 14.6 % (11.7-14.4)
[2017-11-08] MEDS: ACETAMINOPHEN 325 MG TAB PO PRN ×2 (05:41→21:05)
[2017-11-08 07:41] LABS: ALBUMIN 3.1 g/dL (3.5-5.0); ANION GAP 15.6 mmol/L (8-16); CREATININE, SERUM 2.26 mg/dL (0.57-1.11); POTASSIUM 3.6 mmol/L (3.5-5.1)
[2017-11-08] MEDS ORDERED: NON-FORMULARY MEDICATION (Pravastatin Sodium 40 MG) PO SCH (09:00)
[2017-11-08] MEDS ORDERED: INSULIN DETEMIR U SQ SCH (09:00)
[2017-11-08] MEDS ORDERED: INSULIN DETEMIR 100 UNIT/ML PEN SQ SCH (09:00)
[2017-11-08] MEDS: FAMOTIDINE 20 MG/2 ML VIAL IV SCH ×2 (09:35→18:15)
[2017-11-08] MEDS: INSULIN LISPRO 100 UNIT/1 ML 3ML VIAL SQ SCH ×4 (10:57→20:14)
[2017-11-08] MEDS ORDERED: INSULIN LISPRO 100 UNIT/1 ML 3ML VIAL SQ SCH (13:30)
[2017-11-08] MEDS: PIPERACILLIN/TAZO 2.25 GM 50 ML IV SCH ×2 (14:00→22:47)
--- NOTE | 2017-11-08 17:22 | Diagnostic Imaging Report ---
PROCEDURE:US RETROPERITONEAL ( KIDNEY ). COMPARISON:Patients [facility], CT, CT ABDOMEN/PELVIS WO, 11/07/2017, 15:01. Patients [facility], US, US RETROPERITONEAL ( KIDNEY )., 02/14/2017, 16:55. INDICATIONS:RENAL CYST TECHNIQUE: Mcnair-scale and color sonographic images of the bilateral kidneys and bladder where obtained in transverse and longitudinal planes. FINDINGS:Exam limited by patient's large body habitus. RIGHT KIDNEY: 10.3 cm, cortex 1.2 cm Cysts: None Solid masses: None Stones: None Hydronephrosis: None Echogenicity: Normal LEFT KIDNEY: 9.9 cm, cortex 1.6 cm Cysts: 1.8 x 1.9 x 1.8 cm partly exophytic anechoic lesion in the interpolar region. Solid masses: None Stones: None Hydronephrosis: None Echogenicity: Normal Bladder: No focal lesions. Bilateral ureteral jets are identified. CONCLUSION: 1. Normal bilateral renal size, and echogenicity. 2. 1.9 cm simple cyst in the interpolar region, seen on prior CT dated 11/07/2017 Otis Cleveland M.D. Dictated by: Otis Cleveland M.D. on 11/08/2017 at 17:28 Electronically approved by: Otis Cleveland M.D. on 11/08/2017 at 17:28
[2017-11-08] MEDS: MORPHINE SULFATE 2 MG/ML SYR IV PRN (19:25)
[2017-11-08] MEDS ORDERED: SIMVASTATIN 20 MG TAB PO SCH (21:00)
[2017-11-09] VITALS (12 sets, daily range): BP systolic 120–146; BP diastolic 56–88
[2017-11-09] MEDS: SODIUM CHLORIDE 0.9% 1000ML 1,000 ML IV SCH ×2 (00:25→08:56)
[2017-11-09] MEDS: TRAMADOL HCL 50 MG TAB PO PRN ×2 (02:02→08:12)
[2017-11-09 04:59] LABS: BASOPHILS % 0.6 % (0.0-1.0); EOSINOPHILS # (AUTO) 0.3 (0.0-0.4); EOSINOPHILS % 4.3 % (0.0-6.0); HEMATOCRIT 33.2 % (34.2-44.1); HEMOGLOBIN 11.1 g/dL (12.0-16.0); LYMPHOCYTES # (AUTO) 2.4 (1.0-3.2); LYMPHOCYTES % 39.1 % (18.0-39.1); MEAN CORPUSCULAR HEMOGLOBIN 27.4 pg (28-32); MEAN CORPUSCULAR HGB CONC 33.4 g/dL (31-35); MONOCYTES # (AUTO) 0.5 (0.2-0.8); MONOCYTES % 7.9 % (4.4-11.3); NEUTROPHILS % 47.8 % (38.7-80.0); PLATELET COUNT 210 x10e3/uL (140-360); RED BLOOD COUNT 4.05 x10e6/uL (3.6-5.1); RED CELL DISTRIBUTION WIDTH 14.9 % (11.7-14.4)
[2017-11-09 05:16] LABS: CREATININE, SERUM 1.59 mg/dL (0.57-1.11)
[2017-11-09] MEDS: PIPERACILLIN/TAZO 2.25 GM 50 ML IV SCH ×2 (05:33→14:16)
[2017-11-09] MEDS: INSULIN LISPRO 100 UNIT/1 ML 3ML VIAL SQ SCH ×2 (08:00→11:30)
[2017-11-09] MEDS: FAMOTIDINE 20 MG/2 ML VIAL IV SCH (08:12)
[2017-11-09] MEDS: MORPHINE SULFATE 2 MG/ML SYR IV PRN (08:30)
[2017-11-09] MEDS ORDERED: LORAZEPAM INJ 2 MG/ML VIAL ONE (08:37)
[2017-11-09] MEDS ORDERED: LORAZEPAM INJ 2 MG/ML VIAL IV ONE (08:45)
[2017-11-09] MEDS ORDERED: ZIPRASIDONE 20 MG VIAL IM ONE (12:00)
[2017-11-09] MEDS ORDERED: DULOXETINE HCL 30 MG DELAYED RELEASE PO SCH (14:30)
[2017-11-09] MEDS ORDERED: HALOPERIDOL LACTATE 5 MG/ML VIAL IM PRN (14:45)
[2017-11-09] MEDS ORDERED: QUETIAPINE FUMARATE 25 MG TAB PO PRN (14:45)
[2017-11-09] MEDS ORDERED: LORAZEPAM INJ 2 MG/ML VIAL IM PRN (14:45)
[2017-11-09] MEDS ORDERED: LORAZEPAM 0.5 MG TAB PO PRN (14:45)
--- NOTE | 2017-11-10 09:20 | Consultation ---
DATE OF CONSULTATION: November 09, 2017 REASON FOR CONSULTATION: To evaluate the patient's aggression. HISTORY OF PRESENT ILLNESS: The patient is a 72-year-old female admitted to the hospital for pyelonephritis. Psychiatric consultation is called to evaluate the patient's agitation. As per medical record, the patient has a history of hypertension, anxiety, diabetes, coronary artery disease, neuropathy and chronic pain syndrome. Upon evaluation today, the patient was found to be in the ICU. She is alert, awake and oriented to situation. She is in restraint. Apparently, the nursing staff reports the patient is in the ICU because of overflow, and she has been agitated, hitting staff, combative. She is not confused. The patient is alert, awake and oriented to situation. She denies depression and anxiety. She denies suicidal or homicidal ideation. She denies any hallucinations. She complains of poor sleep. Denies any appetite problem. The patient claims that she did not throw anything at the staff and that the plate just slipped and broke. She is being evasive and not open to answering questions regarding her confrontation with the nursing staff. As per nursing staff, the patient has some pain issues for which she is angry that she is not able to get pain medication while she is hospitalized here. PAST PSYCHIATRIC HISTORY: The patient denies past psychiatric history, although per record she has a history of anxiety. She has past suicide attempt. She denies alcohol or drug use. FAMILY HISTORY: Patient denies. SOCIAL HISTORY: The patient lives with her and daughter. MENTAL STATUS EXAMINATION: The patient is an elderly female. She is alert, awake and oriented to situation. Her mood is irritable and frustrated. She denies any suicidal or homicidal ideation. She denies any hallucinations. Thought process is concrete. No delusions or paranoia elicited. Insight and judgment are fair. Memory appears to be grossly intact. MEDICATIONS 1. Sodium chloride. 2. Morphine sulfate. 3. Tramadol p.r.n. 4. Famotidine. 5. Insulin. 6. Zosyn. 7. Acetaminophen. 8. Simvastatin. 9. Ondansetron. 10. Dextrose. 11. Clonidine. 12. Hydralazine. 13. Lactulose. 14. Benadryl. 15. Naloxone. CURRENT LABS: WBC 6.22, RBC 4.05, hemoglobin 11.1, hematocrit 33.2, platelets 210. Sodium 138, potassium 4, chloride 108, CO2 19, BUN 35, creatinine 1.59. ASSESSMENT: Anxiety disorder and adjustment disorder, mixed mood. PLAN 1. Add Cymbalta 30 mg p.o. daily. 2. Add Seroquel p.r.n. p.o. 3. Add Ativan 0.5 mg p.o. and IM q.6 h. p.r.n. 4. Add Haldol p.r.n. IM. 5. Monitor for agitation and mood. 6. Discussed with nursing staff. 7. Supportive therapy. Thank you for this consultation. Dictated by: WILLARD Claire Job#: [id number]
== END 2017-11-09 15:08 | disposition home or self-care (01) | DRG 872 ==
LOC: ER 12:00 → ERHOLD 16:33 → MED/SURG3 18:21 → ERHOLD 11-08 04:01 → ICU 11-08 08:59
PROVIDERS: ADMIT Family Medicine; ATTEND Family Medicine
DX: A41.9 Sepsis, unspecified organism (principal); N17.9 Acute kidney failure, unspecified; N10 Acute pyelonephritis; G89.4 Chronic pain syndrome; I25.10 Atherosclerotic heart disease of native coronary artery without angina pectoris; L89.151 Pressure ulcer of sacral region, stage 1; Z78.1 Physical restraint status; E11.40 Type 2 diabetes mellitus with diabetic neuropathy, unspecified; Z79.4 Long term (current) use of insulin; R65.20 Severe sepsis without septic shock; Z95.5 Presence of coronary angioplasty implant and graft; Z79.899 Other long term (current) drug therapy; N28.1 Cyst of kidney, acquired; E11.65 Type 2 diabetes mellitus with hyperglycemia; E11.22 Type 2 diabetes mellitus with diabetic chronic kidney disease; I12.9 Hypertensive chronic kidney disease with stage 1 through stage 4 chronic kidney disease, or unspecified chronic kidney disease; N18.9 Chronic kidney disease, unspecified
CPT/HCPCS: 36415; 74176; 76770; 80048; 80053; 81001; 82150; 82948; 83690; 83735; 85025; 87086; 96361; 99285; J2060; J2270; J2310; J2405; J2543; J3486; J7030

== ENCOUNTER → 2018-01-16 | Outpatient (CLI) | payer MEDICARE, OTHER ==
--- NOTE | 2018-01-16 16:23 | Diagnostic Imaging Report ---
EXAM: XR CHEST 2 VIEWS DATE: 01/16/2018 3:45 PM INDICATION: Chest and rib pain COMPARISON: 09/17/2017, no report available FINDINGS: Lines and Tubes: None Heart and Mediastinum: No acute cardiomediastinal findings. Lungs and Pleura: Streaky opacities lung bases, similar to previous study, suggesting atelectasis. Bones and Soft Tissues: Degenerative changes shoulders. IMPRESSION: 1. Stable chronic changes. Signed by: Dr. Eldon Nur MD on 01/16/2018 4:20 PM
--- NOTE | 2018-01-16 16:25 | Diagnostic Imaging Report ---
EXAM: RIBS UNILAT W/CXR DATE: 01/16/2018 3:45 PM INDICATION: ^[id number] ^[id number] ^THORACOLUMBAR RADICULOPATHY chest/rib pain COMPARISON: Same-day chest x-ray and 09/17/2017 chest x-ray FINDINGS: The cardia mediastinal silhouette is unremarkable. Mild aortic vascular calcifications are present. No depressed left rib fracture identified. IMPRESSION: No rib fracture identified. Signed by: Dr. Eldon Nur MD on 01/16/2018 4:22 PM
== END ==
LOC: RAD 15:36
PROVIDERS: ATTEND Family Medicine
DX: M54.15 Radiculopathy, thoracolumbar region (principal); R07.9 Chest pain, unspecified
CPT/HCPCS: 71046; 71101

== ENCOUNTER 2018-05-02 11:52 | Emergency (ER) | payer MEDICARE, OTHER ==
[~2018-05-02] VITALS: Ht 160 cm; Wt 91.2 kg
--- OUTSIDE RECORDS SUMMARY | 2018-05-02 11:58 | XMS REPORT ---
Author Author [facility] Address Unknown Phone Unavailable Care Team Providers Care Employment Supervisor Name Role Phone Marissa CARTER Unavailable Unavailable Mercedez THOMAS Unavailable Unavailable Mercedez THIBODEAUX Unavailable Unavailable Payers Payer Name Policy Type Policy Number Effective Date Expiration Date Problems This patient has no known problems. Allergies, Adverse Reactions, Alerts Allergy Name Allergy Type Status Severity Reaction(s) Onset Date Inactive Date Treating Clinician Comments diazepam DA Active SV 2018-01-02 00:00:00 diazepam DA Active SV 2013-01-13 00:00:00 Medications This patient has no known medications. Results Test Description Test Time Test Comments Text Results Atomic Results Result Comments AMOS Tan/AYANAR 2018-01-16 16:20:00 [place] [address] Patient Name: NIHARIKA ONEILL MR #: [id number] : 1945 Age/Sex: 72/F Req #: [id number] [facility] [place]: Ordered by: ABDOUL CARTER MD Report #: [id number] Location: [facility] Room/Bed: Procedure: [id number] DX/RIBS UNILAT W/CXR Exam Date: 01/16/18 Exam Time: 1555 REPORT STATUS: Signed EXAM: RIBS UNILAT W/CXR DATE: 01/16/2018 3:45 PM INDICATION: [id number] THORACOLUMBAR RADICULOPATHY chest/rib pain COMPARISON: Same-day chest x-ray and 09/17/2017 chest x-ray FINDINGS: The cardia mediastinal silhouette is unremarkable. Mild aortic vascular calcifications are present. No depressed left rib fracture identified. IMPRESSION: No rib fracture identified. Signed by: Dr. Renard Nur MD on 01/16/2018 4:22 PM Dictated By: RENARD NUR MD 21 Transcribed By: KHANH on 01/16/181621 COPY TO: ABDOUL CARTER MD CHEST 2 VIEWS 2018-01-16 16:19:00 [place] [address] Patient Name: NIHARIKA ONEILL MR #: [id number] : 1945 Age/Sex: 72/F Req #: [id number] Adm Physician: Ordered by: ABDOUL CARTER MD Report #: [id number] Location: [facility] Room/Bed: Procedure: [id number] DX/CHEST 2 VIEWS Exam Date: 01/16/18 Exam Time: 1554 REPORT STATUS: Signed EXAM: XR CHEST 2 VIEWS DATE: 01/16/2018 3:45 PM I NDICATION: Chest and rib pain COMPARISON: 09/17/2017, no report available FINDINGS: Lines and Tubes: None Heart and Mediastinum: No acute cardiomediastinal findings. Lungs and Pleura: Streaky opacities lung bases, similar to previous study, suggesting atelectasis. Bones and Soft Tissues: Degenerative changes shoulders. IMPRESSION: 1. Stable chronic changes. Signed by: Dr. Renard Nur MD on 01/16/2018 4:20 PM Dictated By: RENARD NUR MD 19 Transcribed By: KHANH on 01/16/181619 COPY TO: ABDOUL CARTER MD US RENAL RETROPERITONEAL COMP 2017-11-08 17:28:00 [place] [address] Patient Name: NIHARIKA ONEILL MR #: [id number] : 1945 Age/Sex: 71/F Req #: [id number] Adm Physician: ABDOUL CARTER MD Ordered by: ABDOUL CARTER MD Report #: [id number] Location: ICU Room/Bed: ICU [facility] Procedure: [id number] US/US RENAL RETROPERITONEAL COMP Exam Date: Exam Time: REPORT STATUS: Signed PROCEDURE: US RETROPERITONEAL ( KIDNEY ). COMPARISON: [facility], CT, CT ABDOMEN/PELVIS WO, 11/07/2017, 15:01. [facility], US, US RETROPERITONEAL ( KIDNEY )., 02/14/2017, 16:55. INDICATIONS: RENAL CYST TECHNIQUE: Mcnair-scale and color sonographic images of the bilateral kidneys and bladder where obtained in transverse and longitudinal planes. FINDINGS: Exam limited by patient's large body habitus. RIGHT KIDNEY: 10.3 cm, cortex 1.2 cm Cysts: None Solid masses: None Stones: None Hydronephrosis: None Echogenicity: Normal LEFT KIDNEY: 9.9 cm, cortex 1.6 cm Cysts: 1.8 x 1.9 x 1.8 cm partly exophytic anechoic lesion in the interpolar region. Solid masses: None Stones: None Hydronephrosis: None Echogenicity: Normal Bladder: No focal lesions. Bilateral ureteral jets are identified. CONCLUSION: 1. Normal bilateral renal size, and echogenicity. 2. 1.9 cm simple cyst in the interpolar region, seen on prior CT dated 11/07/2017 Otis Love M.D. Dictated by: Otis Love M.D. on 11/08/2017 at 17:28 Electronically approved by: Otis Love M.D. on 11/08/2017 at 17:28 Dictated By: OTIS LOVE MD 27 Transcribed By: SHANITA on 11/08/171727 COPY TO: ABDOUL CARTER MD CT ABDOMEN/PELVIS WO 2017-11-07 15:26:00 [place] [address] Patient Name: NIHARIKA ONEILL MR #: [id number] : 1945 Age/Sex: 71/F Req #: [id number] Adm Physician: Ordered by: CORWIN BERRIOS MD Report #: [id number] Location: Room/Bed: Procedure: [id number] CT/CT ABDOMEN/PELVIS WO Exam Date: 11/07/17 Exam Time: 1501 REPORT STATUS: Signed EXAM: CT Abdomen and Pelvis WITHOUT contrast INDICATION: COMPARISON: None. TECHNIQUE: Abdomen and pelvis were scanned utilizing a multidetector helical scanner from the lung base to the pubic symphysis without administration of IV contrast. Absence of intravenous contrast decreases sensitivity for detection of focal lesions and vascular pathology. Coronal and sagittal reformations were obtained. Routine protocol was performed. IV CONTRAST: None ORAL CONTRAST: Gastroview COMPLICATIONS: None RADIATION DOSE: Total DLP: 726.69 mGy*cm Estimated effective dose: (DLP x 0.015 x size factor) mSv CTDIvol has been reviewed. It is below the limits set by the Radiation Protocol Committee (RPC). FINDINGS: LINES and TUBES: None. LOWER THORAX: Unremarkable. Partially seen mitral valve calcification. HEPATOBILIARY: Unenhanced liver is unremarkable. No biliary ductal dilation. GALLBLADDER: Fundal dependent hyperdensity, likely small gallstones. No wall thickening. SPLEEN: No splenomegaly. PANCREAS: No focal masses or ductal dilatation. Fatty involution. ADRENALS: No adrenal nodules KIDNEYS/URETERS: No hydronephrosis. Multiple hypodense left renal lesions cannot be characterized on this noncontrast study. For example 1.8 cm posterior lower pole lesion (series 2, image 29). 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 No stones. GI TRACT: No abnormal distention, wall thickening, or evidence of bowel obstruction. There are diverticula within the colon without evidence of diverticulitis. Appendix is normal. PELVIC ORGANS/BLADDER: Hysterectomy. Bladder is under distended, limiting evaluation. LYMPH NODES: No lymphadenopathy. VESSELS: Unremarkable. PERITONEUM / RETROPERITONEUM: No free air or fluid. BONES: Partially seen intramedullary left femoral nail and neck screw. SOFT TISSUES: Moderate size fat-containing left inguinal hernia. IMPRESSION: 1. Limited study without intravenous contrast. 2. No nephrolithiasis or evidence of obstructive urolithiasis. 3. Colonic diverticulosis without evidence of diverticulitis. 4. Moderate size fat-containing left inguinal hernia. 5. Cholelithiasis without evidence of cholecystitis. 6. Multiple left renal lesions cannot be characterized on this unenhanced study. Recommend renal ultrasound for further evaluation. Signed by: Dr. Alex Valera MD on 11/07/2017 3:40 PM Dictated By: ALEX VALERA MD 39 Transcribed By: KHANH on 11/07/171539 COPY TO: CORWIN BERRIOS MD CHEST SINGLE (PORTABLE) 2017-09-17 11:26:00 [place] [address] Patient Name: NIHARIKA ONEILL MR #: [id number] : 1945 Age/Sex: 71/F Req #: [id number] Adm Physician: Ordered by: MICHAEL THOMAS MD Report #: [id number] Location: ER Room/Bed: Procedure: [id number] DX/CHEST SINGLE (PORTABLE) Exam Date: 09/17/17 Exam Time: 1119 REPORT STATUS: Signed EXAM: XR CHEST 1 VIEW DATE: 09/17/2017 10:46 AM INDICATION: Coughing COMPARISON: 08/09/2017 FINDINGS: Lines and Tubes: None Heart and Mediastinum: No acute cardiomediastinal findings. Lungs and Pleura: Minimal opacities in the lung bases statistically represent atelectasis, however, infectious process could have a similar appearance. Bones and Soft Tissues: No acute findings. IMPRESSION: 1. Probable basilar atelectasis. Signed by: Dr. Renard Nur MD on 09/17/2017 11:26 AM Dictated By: RENARD NUR MD 112 Transcribed By: KHANH on 09/17/171125 COPY TO: MICHAEL THOMAS MD CHEST SINGLE (PORTABLE) [place] [address] Patient Name: NIHARIKA ONEILL MR #: [id number] : 1945 Age/Sex: 71/F Req #: [id number] Adm Physician: ABDOUL CARTER MD Ordered by: ABDOUL CARTER MD Report #: [id number] Location: MED/SURG3 Room/Bed: [facility] Procedure: [id number] DX/CHEST SINGLE (PORTABLE) Exam Date: 08/09/17 Exam Time: 514 REPORT STATUS: Signed EXAMINATION: CHEST SINGLE (PORTABLE) INDICATION: Shortness of breath COMPARISON: 08/07/2017 FINDINGS: TUBES and LINES: None. LUNGS: Lungs are well inflated. Lungs are clear. There is no evidence of pneumonia or pulmonary edema. PLEURA: No pleural effusion or pneumothorax. HEART AND MEDIASTINUM: The cardiomediastinal silhouette is unremarkable. BONES AND SOFT TISSUES: No acute osseous lesion. Soft tissues are unremarkable. UPPER ABDOMEN: No free air under the diaphragm. IMPRESSION: No acute thoracic abnormality. Signed by: Dr. Vasu Matias M.D. on 08/09/2017 6:32 AM Dictated By: VASU LESLIE MD 1 Transcribed By: KHANH on 08/09/17631 COPY TO: ABDOUL CARTER MD CHEST SINGLE (PORTABLE) [place] [address] Patient Name: NIHARIKA ONEILL MR #: [id number] : 1945 Age/Sex: 71/F Req #: [id number] Adm Physician: Ordered by: MYRON HUGO NP Report #: [id number] Location: ER Room/Bed: Procedure: [id number] DX/CHEST SINGLE (PORTABLE) Exam Date: 08/07/17 Exam Time: 1309 REPORT STATUS: Signed EXAMINATION: CHEST SINGLE (PORTABLE) INDICATION: Pain all over. COMPARISON: Chest x-ray 04/13/2017. 04/12/2017. FINDINGS: AP view TUBES and LINES: None. LUNGS: Lungs are well inflated. There are bibasilar atelectasis. Slightly more focal left basilar airspace opacity. PLEURA: No pleural effusion or pneumothorax. HEART AND MEDIASTINUM: The cardiomediastinal silhouette is unremarkable. BONES AND SOFT TISSUES: No acute osseous lesion. Multiple healed right rib fracture deformities. Mild to moderate degenerative changes in bilateral shoulders. Soft tissues are unremarkable. UPPER ABDOMEN: No free air under the diaphragm. IMPRESSION: Slightly more focal airspace opacity in the left lung base. Correlate for focal pneumonia. Signed by: Dr. Jesse Fowler M.D. on 08/07/2017 1:37 PM Dictated By: JESSE FOWLER MD 1333 Transcribed By: KHANH on 08/07/174 COPY TO: MYRON HUGO [employer] CHEST SINGLE (PORTABLE) [place] [address] Patient Name: NIHARIKA ONEILL MR #: [id number] : 1945 Age/Sex: 71/F Req #: [id number] Adm Physician: ABDOUL CARTER MD Ordered by: NATE ZAMBRANO MD Report #: [id number] Location: ICU Room/Bed: ICU 189-1 Procedure: [id number] DX/CHEST SINGLE (PORTABLE) Exam Date: 04/13/17 Exam Time: 0950 REPORT STATUS: Signed EXAMINATION: CHEST SINGLE (PORTABLE) INDICATION: COMPARISON: Chest radiograph 04/12/2017 FINDINGS: AP view TUBES and LINES: * Endotracheal tube 3.6 cm above the rosaline in good position. * Stable positioning of a right internal jugular vein central line. * Stable position nasogastric/orogastric tube. LUNGS: Stable edema and perihilar and bibasilar atelectasis PLEURA: No effusions or pneumothorax. HEART AND MEDIASTINUM: Stable appearance BONES AND SOFT TISSUES: No acute findings. IMPRESSION: Slight retraction of ET tube which remains in good position. Otherwise, stable chest. Signed by: DR. Pablo Oates MD on 04/13/2017 11:57 AM Dictated By: PABLO OATES MD 1158 Transcribed By: KHANH on 04/13/17 1155 COPY TO: NATE ZAMBRANO MD CHEST SINGLE (PORTABLE) [place] [address] Patient Name: NIHARIKA ONEILL MR #: [id number] : 1945 Age/Sex: 71/F Req #: [id number] Adm Physician: ABDOUL CARTER MD Ordered by: DOMINICK YOUNGBLOOD MD Report #: [id number] Location: ICU Room/Bed: ICU 189 Procedure: [id number] DX/CHEST SINGLE (PORTABLE) Exam Date: 04/12/17 Exam Time: 0505 REPORT STATUS: Signed EXAM: CHEST SINGLE (PORTABLE), AP 1 view DATE: 04/12/2017 4:10 AM Time stamp on exam: 5:26 AM INDICATION: Intubation COMPARISON: AP view of the chest April 10, 2017, 04/11/2017 FINDINGS: LINES/TUBES: Endotracheal tube is now 2.5 cm above the rosaline in good position. Stable position right internal jugular vein central line. Stable position nasal/orogastric tube LUNGS: Stable edema and perihilar and bibasilar atelectasis PLEURA: No effusions or pneumothorax. HEART AND MEDIASTINUM: Stable appearance BONES AND SOFT TISSUES: No acute findings. IMPRESSION: 1. The endotracheal tube is now in good position 2.5 cm above the rosaline. 2. Otherwise, stable chest. Signed by: Dr. Vasu Matias M.D. on 04/12/2017 7:08 AM Dictated By: VASU LESLIE MD 07 Transcribed By: KHANH on 04/12/17 07 COPY TO: DOMINICK YOUNGBLOOD MD CHEST SINGLE (PORTABLE) [place] [address] Patient Name: NIHARIKA ONEILL MR #: [id number] : 1945 Age/Sex: 71/F Req #: [id number] Adm Physician: ABDOUL CARTER MD Ordered by: DOMINICK YOUNGBLOOD MD Report #: [id number] Location: ICU Room/Bed: ICU [facility] Procedure: [id number] DX/CHEST SINGLE (PORTABLE) Exam Date: 04/11/17 Exam Time: 0510 REPORT STATUS: Signed EXAM: CHEST SINGLE (PORTABLE), AP 1 view DATE: 04/11/2017 4:41 AM Time stamp on exam: 0515 hours INDICATION: Intubated COMPARISON: AP view of the chest April 10, 2017 FINDINGS: LINES/TUBES: Endotracheal tube near the orifice of the right mainstem bronchus. Stable position right internal jugular vein central line. Stable position nasal/orogastric tube LUNGS: Stable edema and perihilar and bibasilar atelectasis PLEURA: No effusions or pneumothorax. HEART AND MEDIASTINUM: Stable appearance BONES AND SOFT TISSUES: No acute findings. IMPRESSION: The endotracheal tube is near the orifice of the right mainstem bronchus. Signed by: Dr. Miguelito Munoz M.D. on 04/11/2017 6:13 AM Dictated By: MIGUELITO MUNOZ MD 2 Transcribed By: KHANH on 04/11/17612 COPY TO: DOMINICK YOUNGLBOOD MD CHEST SINGLE (PORTABLE) [place] [address] Patient Name: NIHARIKA ONEILL MR #: [id number] : 1945 Age/Sex: 71/F Req #: [id number] Adm Physician: ABDOUL CARTER MD Ordered by: ABDOUL CARTER MD Report #: [id number] Location: ICU Room/Bed: ICU 189 Procedure: [id number] DX/CHEST SINGLE (PORTABLE) Exam Date: 04/10/17 Exam Time: 0520 REPORT STATUS: Signed EXAM: CHEST SINGLE (PORTABLE), AP 1 view DATE: 04/10/2017 4:52 AM Time stamp on exam: 0528 hours INDICATION: Intubation COMPARISON: AP view of the chest were 2017 FINDINGS: LINES/TUBES: Endotracheal tube at the level of the rosaline. Nasal/orogastric tube courses below the diaphragm out of field of view. Right internal jugular vein central line, stable position LUNGS: Stable edema and perihilar and bibasilar atelectasis PLEURA: Likely small left pleural effusion HEART AND MEDIASTINUM: Stable appearance BONES AND SOFT TISSUES: No acute findings. IMPRESSION: The endotracheal tube tip is at the level of the rosaline. Likely developing small left pleural effusion. Signed by: Dr. Miguelito Munoz M.D. on 04/10/2017 6:28 AM Dictated By: MIGUELITO MUNOZ MD 7 Transcribed By: KHANH on 04/10/17627 COPY TO: ABDOUL CARTER MD CHEST SINGLE (PORTABLE) [place] [address] Patient Name: NIHARIKA ONEILL MR #: [id number] : 1945 Age/Sex: 71/F Req #: [id number] Adm Physician: ABDOUL CARTER MD Ordered by: SALLY MEIDNA MD Report #: [id number] Location: [facility] Room/Bed: [place] [address] Procedure: [id number] DX/CHEST SINGLE (PORTABLE) Exam Date: 04/09/17 Exam Time: 0430 REPORT STATUS: Signed EXAM: CHEST SINGLE (PORTABLE), AP 1 view DATE: 04/09/2017 7:00 AM Time stamp on exam: 0511 hours INDICATION: Intubated COMPARISON: AP view of the chest April 08, 2017 FINDINGS: LINES/TUBES: Stable position of endotracheal tube, right internal jugular vein central line. LUNGS: Stable edema and perihilar and bibasilar atelectasis PLEURA: No effusions or pneumothorax. HEART AND MEDIASTINUM: The heart is within normal size limits. Stable enlargement of the central pulmonary vessels. BONES AND SOFT TISSUES: No acute findings. IMPRESSION: No interval change. Signed by: Dr. Miguelito Munoz M.D. on 04/09/2017 5:36 AM Dictated By: MIGUELITO MUNOZ MD 5 Transcribed By: KHANH on 04/09/17535 COPY TO: SALLY MEDINA MD ABDOMEN-1VIEW ([facility]) [place] [address] Patient Name: NIHARIKA ONEILL MR #: [id number] : 1945 Age/Sex: 71/F Req #: [id number] Adm Physician: ABDOUL CARTER MD Ordered by: ABDOUL CARTER MD Report #: [id number] Location: [facility] Room/Bed: [place] [address] Procedure: [id number] DX/ABDOMEN-1VIEW ([facility]) Exam Date: 04/08/17 Exam Time: 1939 REPORT STATUS: Signed EXAM: ABDOMEN-1VIEW (KUB), supine DATE: 04/08/2017 7:13 PM Time stamp on exam: 1937 hours INDICATION: Not provided COMPARISON: None FINDINGS: LINES/TUBES: None BOWEL PATTERN: No evidence for obstruction. SOFT TISSUES: No abnormal calcifications. No mass effect. LUNG BASES: Not included BONES: No acute findings. IMPRESSION: Nonobstructive bowel gas pattern. Signed by: Dr. Miguelito Munoz M.D. on 04/08/2017 9:45 PM Dictated By: MIGUELITO MUNOZ MD 44 Transcribed By: KHANH on 04/08/172144 COPY TO: ABDOUL CARTER MD CHEST SINGLE (PORTABLE) [place] [address] Patient Name: NIHARIKA ONEILL MR #: [id number] : 1945 Age/Sex: 71/F Req #: [id number] Adm Physician: ABDOUL CARTER MD Ordered by: ABDOUL CARTER MD Report #: [id number] Location: [facility] Room/Bed: [place] [address] Procedure: [id number] DX/CHEST SINGLE (PORTABLE) Exam Date: 04/08/17 Exam Time: 1924 REPORT STATUS: Signed EXAM: CHEST SINGLE (PORTABLE), AP 1 view DATE: 04/08/2017 7:13 PM Time stamp on exam: 1938 hours INDICATION: Intubation COMPARISON: February 13, 2017 endotracheal tube terminates 3 cm above the rosaline. Right internal jugular vein central catheter terminates in the dilatation of the distal superior vena cava. FINDINGS: LINES/TUBES: None LUNGS: Bilateral edema and bibasilar atelectasis. PLEURA: No effusions or pneumothorax. HEART AND MEDIASTINUM: The heart is within normal size limits. Enlargement of the main pulmonary arteries. BONES AND SOFT TISSUES: No acute findings. IMPRESSION: Mild edema. Signed by: Dr. Miguelito Munoz M.D. on 04/08/2017 9:46 PM Dictated By: MIGUELITO MUNOZ MD 45 Transcribed By: KHANH on 04/08/172145 COPY TO: ABDOUL CARTER MD RENAL RETROPERITONEAL COMP [place] [address] Patient Name: NIHARIKA ONEILL MR #: [id number] : 1945 Age/Sex: 71/F Req #: [id number] Adm Physician: SUNNI THIBODEAUX MD Ordered by: SUNNI THIBODEAUX MD Report #: [id number] Location: [facility]URG Room/Bed: [facility] Procedure: [id number] US/US RENAL RETROPERITONEAL COMP Exam Date: 02/14/17 Exam Time: 1655 REPORT STATUS: Signed EXAM: Renal Ultrasound INDICATION: COMPARISON: None TECHNIQUE: Transverse and longitudinal images of the kidneys and bladder were obtained. FINDINGS: Evaluation limited by body habitus and limited patient mobility. Right Kidney: Size: 10.4 cm Echogenicity: Normal Parenchymal thickness: Normal Collecting system: No hydronephrosis Stones: None Cyst/Mass: None Left Kidney: Size: 10.9 cm Echogenicity: Normal Parenchymal thickness: Normal Collecting system: No hydronephrosis Stones: None Cyst/Mass: None Bladder: Collapsed with Piedra catheter in place, limiting evaluation. IMPRESSION: Normal renal ultrasound exam. Signed by: DR. Pablo Oates MD on 02/14/2017 6:56 PM Dictated By: PABLO OATES MD 55 Transcribed By: KHANH on 02/14/171855 COPY TO: SUNNI THIBODEAUX MD CHEST SINGLE (PORTABLE) [place] [address] Patient Name: NIHARIKA ONEILL MR #: [id number] : 1945 Age/Sex: 71/F Req #: [id number] Adm Physician: SUNNI THIBODEAUX MD Ordered by: SUNNI THIBODEAUX MD Report #: [id number] Location: MED/SURG2 Room/Bed: [facility] Procedure: [id number] DX/CHEST SINGLE (PORTABLE) Exam Date: 02/13/17 Exam Time: 1355 REPORT STATUS: Signed EXAMINATION: Chest, CHEST SINGLE (PORTABLE) INDICATION: Chest pain COMPARISON: Portable chest 02/10/2017 FINDINGS: LINES: None. Heart: Normal cardiac silhouette. Vascular: The pulmonary vasculature is within normal limits. Atherosclerotic calcifications of the aortic arch. Mediastinum: No mediastinal, hilar, or axillary mass or lymphadenopathy. Lungs: No parenchymal mass. No focal consolidation. Bibasilar atelectasis. Pleura: No pleural effusion. No pneumothorax. Bones: No acute osseous abnormality. Degenerative changes of the thoracic spine. Soft tissues: Normal. Impression: No acute radiographic abnormality. Signed by: Dr. Pricilla Hart M.D. on 02/13/2017 2:20 PM Dictated By: PRICILLA HART MD Electronic ally Signed By: PRICILLA HART MD on 02/13/171419 Transcribed By: KHANH on 02/13/171419 COPY TO: SUNNI THIBODEAUX MD CT BRAIN WO [place] [address] Patient Name: NIHARIKA ONEILL MR #: [id number] : 1945 Age/Sex: 71/F Req #: [id number] Adm Physician: SUNNI THIBODEAUX MD Ordered by: SUNNI THIBODEAUX MD Report #: [id number] Location: MED/SURG2 Room/Bed: [facility] Procedure: [id number] CT/CT BRAIN WO Exam Date: 02/11/17 Exam Time: 1416 REPORT STATUS: Signed History:AMS Comparison studies:None Technique: Axial images were obtained from the skull base to the vertex. Coronal and sagittal images reconstructed from the axial data. Intravenous contrast: None Findings: Scalp/skull: No abnormalities. Extra-axial spaces: No masses. No fluid collections. Brain sulci: Mildly prominent. Ventricles: Mild compensatory dilatation. No hydrocephalus. Parenchyma: Scattered small hypodensities in the supratentorial white matter are small vessel ischemic changes. 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 No masses, hemorrhage, acute or chronic cortical vascular insults. Sellar/suprasellar region: No abnormalities. Craniocervical junction: Patent foramen magnum. No Chiari one malformation. Incidental findings: Atherosclerotic calcifications in the carotid siphons . Impression: No acute abnormalities. Chronic findings: 1. Mild generalized volume loss. 2. Mild supratentorial white matter small vessel ischemic changes. Signed by: DR French Gonzalez M.D. on 02/11/2017 2:56 PM Dictated By: FRENCH OSORIO MD 55 Transcribed By: KHANH on 02/11/171455 COPY TO: SUNNI THIBODEAUX MD LOWER LEG RIGHT [place] [address] Patient Name: NIHARIKA ONEILL MR #: [id number] : 1945 Age/Sex: 71/F Req #: [id number] Adm Physician: SUNNI THIBODEAUX MD Ordered by: SUNNI THIBODEAUX MD Report #: [id number] Location: [facility]URG Room/Bed: [facility] Procedure: [id number] DX/LOWER LEG RIGHT Exam Date: 02/11/17 Exam Time: 1400 REPORT STATUS: Signed PROCEDURE: X-RAY RIGHT LOWER LEG COMPARISON: None. INDICATIONS: LOWER TIBULAR CELLULITIS FINDINGS: Normal mineralization. No acute displaced fracture or dislocation. No cortical erosion or destruction. No lytic or blastic lesion. Minimal degenerative changes in the right knee. Moderate soft tissue swelling in the lower leg surrounding the ankle. CONCLUSION: Moder ate soft tissue swelling surrounding the ankle, without underlying cortical erosion or destruction or fracture. Otis Love M.D. Dictated by: Otis Love M.D. on 02/11/2017 at 15:54 Electronically approved by: Otis Love M.D. on 02/11/2017 at 15:54 Dictated By: OTIS LOVE MD 1554 Transcribed By: SHANITA on 02/11/17 1554 COPY TO: SUNNI THIBODEAUX MD [facility] [place] [address] Patient Name: NIHARIKA ONEILL MR #: [id number] : 1945 Age/Sex: 71/F Req #: [id number] Adm Physician: Ordered by: ADOLFO OLIVIA MD Report #: [id number] Location: Room/Bed: Procedure: [id number] DX/CHEST SINGLE (PORTABLE) Exam Date: 02/10/17 Exam Time: 1540 REPORT STATUS: Signed PROCEDURE: A single AP view of the chest. COMPARISON: None. INDICATIONS: HIGH BLOOD PRESSURE, CHEST PAIN FINDINGS: Lines/tubes: None. Lungs: The lungs are well inflated. 3-4 mm nodular density in the left upper lung projecting between the posterior aspects of the left fourth and fifth ribs. There is no evidence of pneumonia or pulmonary edema. Pleura: There is no pleural effusion or pneumothorax. Heart and mediastinum: The heart and the mediastinum are unremarkable. Bones: No acute bony abnormality. IMPRESSION: 1. No acute cardiopulmonary abnormality. 2. 3-4 mm nodular density in the left upper lung may represent a nodule, granuloma or summation of vessels shadows. No prior films are available for comparison. Recommend chest PA and lateral in 2-3 m onths to document stability. Otis Love M.D. Dictated by: Otis Love M.D. on 02/10/2017 at 16:05 Electronically approved by: Otis Love M.D. on 02/10/2017 at 16:05 Dictated By: OTIS LOVE MD [id number] Transcribed By: SHANITA on 02/10/17 1605 COPY TO: ADOLFO OLIVIA MD
[2018-05-02] MEDS ORDERED: ACETAMINOPHEN 325 MG TAB PO NR (14:30)
[2018-05-02] MEDS ORDERED: ACETAMINOPHEN 325 MG TAB ONE (14:36)
[2018-05-02] MEDS ORDERED: KETOROLAC TROMETHAMINE 60 MG/2 ML VIAL IM NR (15:15)
[2018-05-02 15:39] LABS: CLARITY,URINE CLEAR (CLEAR)
[2018-05-02 15:40] LABS: BILIRUBIN,URINE NEGATIVE (NEGATIVE); KETONES,URINE NEGATIVE (NEGATIVE); LEUKOCYTE ESTERASE ,URINE NEGATIVE (NEGATIVE); NITRITE,URINE NEGATIVE (NEGATIVE); PROTEIN,URINE DIPSTICK NEGATIVE (NEGATIVE); URINE UROBILINOGEN 0.2 mg/dL (0.2 - 1)
[2018-05-02 15:41] LABS: COLOR,URINE YELLOW (YELLOW)
[2018-05-02 16:36] LABS: EPITHELIAL CELLS,URINE MODERATE /LPF
[2018-05-02 16:37] LABS: RBC,URINE 0-5 /HPF (0-5); WBC,URINE (MAN) 0-5 /HPF (0-5)
[2018-05-02 16:38] LABS: HYALINE CASTS 0-1 (0-1)
[2018-05-02 16:39] LABS: TRANSITIONAL EPI CELLS,URINE FEW
[2018-05-02] MEDS ORDERED: ZOFRAN4 MG SL (17:33)
[2018-05-02] MEDS ORDERED: BACTRIM DS TAB1 EACH PO (18:02)
== END 2018-05-02 18:20 | disposition home or self-care (01) ==
LOC: ER 11:52
DX: R30.0 Dysuria (principal); N30.90 Cystitis, unspecified without hematuria; E11.9 Type 2 diabetes mellitus without complications; I25.10 Atherosclerotic heart disease of native coronary artery without angina pectoris; F41.9 Anxiety disorder, unspecified; I25.2 Old myocardial infarction
CPT/HCPCS: 81001; 87086; 99284; J1885

== ENCOUNTER → 2018-05-29 | Outpatient (CLI) | payer MEDICARE, OTHER ==
[~2018-05-29] MED LIST changes: +BACTRIM DS TAB1 EACH PO; +ZOFRAN4 MG SL
== END ==
LOC: RAD 13:01
PROVIDERS: ATTEND Family Medicine
DX: I87.2 Venous insufficiency (chronic) (peripheral) (principal)
CPT/HCPCS: 93925; 93970

== ENCOUNTER 2018-09-29 16:05 | Emergency (ER) | payer MEDICARE, OTHER ==
[~2018-09-29] VITALS: Ht 160 cm; Wt 91.2 kg
[2018-09-29 17:38] LABS: BASOPHILS # (AUTO) 0.1 (0.0-0.1); BASOPHILS % 0.5 % (0.0-1.0); CLARITY,URINE SL CLOUDY (CLEAR); COLOR,URINE YELLOW (YELLOW); EOSINOPHILS # (AUTO) 0.1 (0.0-0.4); EOSINOPHILS % 0.5 % (0.0-6.0); HEMATOCRIT 43.1 % (34.2-44.1); HEMOGLOBIN 14.8 g/dL (12.0-16.0); LEUKOCYTE ESTERASE ,URINE NEGATIVE (NEGATIVE); LYMPHOCYTES # (AUTO) 2.3 (1.0-3.2); LYMPHOCYTES % 19.5 % (18.0-39.1); MEAN CORPUSCULAR HEMOGLOBIN 29.1 pg (28-32); MEAN CORPUSCULAR HGB CONC 34.3 g/dL (31-35); MEAN CORPUSCULAR VOLUME 84.7 fL (81-99); MONOCYTES # (AUTO) 0.8 (0.2-0.8); MONOCYTES % 6.7 % (4.4-11.3); NEUTROPHILS # (AUTO) 8.5 (2.1-6.9); NITRITE,URINE NEGATIVE (NEGATIVE); PLATELET COUNT 266 x10e3/uL (140-360); RED BLOOD COUNT 5.09 x10e6/uL (3.6-5.1); RED CELL DISTRIBUTION WIDTH 13.3 % (11.7-14.4)
[2018-09-29 17:39] LABS: BILIRUBIN,URINE LARGE (NEGATIVE); KETONES,URINE 1+ (NEGATIVE); PROTEIN,URINE DIPSTICK 1+ (NEGATIVE); URINE UROBILINOGEN 0.2 mg/dL (0.2 - 1)
[2018-09-29 17:54] LABS: ALBUMIN 4.2 g/dL (3.5-5.0); AMORPHOUS SEDIMENT,URINE MANY (FEW); ANION GAP 22.2 mmol/L (8-16); BACTERIA,URINE MODERATE /HPF; CALCIUM 10.2 mg/dL (8.4-10.2); CREATININE, SERUM 1.6 mg/dL (0.57-1.11); POTASSIUM 4.2 mmol/L (3.5-5.1)
[2018-09-29 18:12] LABS: AMYLASE 56 U/L (25-125); LIPASE 24 U/L (8-78)
[2018-09-29] MEDS ORDERED: DIATRIZOATE MEGL/DIATRIZOA SOD 30 ML BTL PO ONE (19:25)
--- NOTE | 2018-09-29 20:51 | Diagnostic Imaging Report ---
EXAM: CT Abdomen and Pelvis WITHOUT contrast INDICATION: ^generalized abd pain COMPARISON: CT abdomen and pelvis 11/07/2017. TECHNIQUE: Abdomen and pelvis were scanned utilizing a multidetector helical scanner from the lung base to the pubic symphysis without administration of IV contrast. Absence of intravenous contrast decreases sensitivity for detection of focal lesions and vascular pathology. Coronal and sagittal reformations were obtained. Routine protocol was performed. IV CONTRAST: None ORAL CONTRAST: Gastrografin COMPLICATIONS: None RADIATION DOSE: Total DLP: 755.28 mGy*cm Estimated effective dose: (DLP x 0.015 x size factor) mSv CTDIvol has been reviewed. It is below the limits set by the Radiation Protocol Committee (RPC). Dose modulation, iterative reconstruction, and/or weight based adjustment of the mA/kV was utilized to reduce the radiation dose to as low as reasonably achievable. FINDINGS: LINES and TUBES: None. LOWER THORAX: Lung bases are unremarkable. Mild distal esophageal wall thickening. HEPATOBILIARY: The liver is diffuse hypodense compared to the spleen, consistent with diffuse hepatic diffuse hepatic steatosis. No focal hepatic lesions. No biliary ductal dilation. GALLBLADDER: No radio-opaque stones or sludge. No wall thickening. SPLEEN: No splenomegaly. PANCREAS: There is fatty infiltration of the pancreas. ADRENALS: No adrenal nodules KIDNEYS/URETERS: Bilateral renal atrophy, left worse than the right. No hydronephrosis. 1.7 cm cystic lesion inferior pole of the right kidney (image 43). 1.5 cm cystic lesion in the superior pole the left kidney. 1.5 cm cystic lesion in the posterior interpolar/inferior pole of the left kidney. 4.1 x 5.0 cm fat-containing lesion arising from the left kidney (image 30), consistent with angiomyolipoma. No stones. GI TRACT: No abnormal distention, wall thickening, or evidence of bowel obstruction. There are diverticula within the colon without evidence of diverticulitis. Appendix is not clearly identified. There is however no fat stranding or adenopathy in the right lower quadrant to suggest appendicitis. PELVIC ORGANS/BLADDER: Hysterectomy. Both ovaries are not visualized. Pelvic floor prolapse. LYMPH NODES: No lymphadenopathy. VESSELS: There is mild atherosclerotic disease in the aorta and major arterial branches. PERITONEUM / RETROPERITONEUM: No free air or fluid. BONES: Left femoral diaphyseal jesus with intertrochanteric interlocking screw. SOFT TISSUES: Stable fat-containing mixed type left inguinal hernia, indirect, direct, and femoral hernias. No involvement of bowel. Postsurgical scar in the left hip. IMPRESSION: 1. No acute abnormalities in the abdomen or pelvis. 2. Distal esophageal wall thickening. Correlate for esophagitis. 3. Bilateral renal cystic lesions. 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 4. Stable large left femoral and inguinal hernia containing fat. 5. Pelvic floor prolapse. Signed by: Dr. Jesse Sanchez M.D. on 09/29/2018 8:47 PM
[2018-09-29] MEDS ORDERED: PANTOPRAZOLE SO40 MG PO (20:58)
[2018-09-29 21:49] VITALS: BP 127/59
== END 2018-09-29 21:45 | disposition home or self-care (01) ==
LOC: ER 16:05
DX: R10.13 Epigastric pain (principal); R10.84 Generalized abdominal pain; K21.0 Gastro-esophageal reflux disease with esophagitis
CPT/HCPCS: 36415; 74176; 80053; 81001; 82150; 83690; 85025; 99284

== ENCOUNTER 2018-11-04 12:30 | Inpatient (IN) | payer MEDICARE, OTHER ==
[~2018-11-04] VITALS: Ht 160 cm; Wt 85.7 kg
[~2018-11-04 12:30] MED LIST changes: +PANTOPRAZOLE SO40 MG PO
[2018-11-04] MEDS ORDERED: ONDANSETRON HCL INJ 2MG/ML 2ML 2 MG/ML VIAL IV NR (12:41)
[2018-11-04] MEDS ORDERED: SODIUM CHLORIDE 0.9% 1000ML 1,000 ML IV STA ×2 (12:41→14:25)
[2018-11-04 13:00] LABS: BASOPHILS # (AUTO) 0.1 (0.0-0.1); BASOPHILS % 0.9 % (0.0-1.0); EOSINOPHILS # (AUTO) 0.1 (0.0-0.4); HEMATOCRIT 42.1 % (34.2-44.1); HEMOGLOBIN 14.2 g/dL (12.0-16.0); LYMPHOCYTES # (AUTO) 2.5 (1.0-3.2); LYMPHOCYTES % 24.8 % (18.0-39.1); MEAN CORPUSCULAR HEMOGLOBIN 28.6 pg (28-32); MEAN CORPUSCULAR HGB CONC 33.7 g/dL (31-35); MEAN CORPUSCULAR VOLUME 84.9 fL (81-99); MONOCYTES # (AUTO) 0.8 (0.2-0.8); MONOCYTES % 8.1 % (4.4-11.3); NEUTROPHILS # (AUTO) 6.5 (2.1-6.9); NEUTROPHILS % 64.5 % (38.7-80.0); PLATELET COUNT 328 x10e3/uL (140-360); RED BLOOD COUNT 4.96 x10e6/uL (3.6-5.1); RED CELL DISTRIBUTION WIDTH 13.1 % (11.7-14.4)
[2018-11-04] MEDS ORDERED: ASPIRIN 81 MG CHEW TAB PO ONE ×2 (13:00→14:30)
[2018-11-04 13:01] LABS: BILIRUBIN,URINE LARGE (NEGATIVE); CLARITY,URINE CLOUDY (CLEAR); COLOR,URINE YELLOW (YELLOW); KETONES,URINE TRACE (NEGATIVE); LEUKOCYTE ESTERASE ,URINE SMALL (NEGATIVE); NITRITE,URINE NEGATIVE (NEGATIVE); PROTEIN,URINE DIPSTICK NEGATIVE (NEGATIVE); URINE UROBILINOGEN 0.2 mg/dL (0.2 - 1)
[2018-11-04 13:04] LABS: PARTIAL THROMBOPLASTIN TIME 25.9 seconds (23.8-35.5); PROTHROMBIN TIME 13.7 seconds (11.9-14.5)
--- NOTE | 2018-11-04 13:11 | Diagnostic Imaging Report ---
EXAMINATION: CHEST SINGLE (PORTABLE) INDICATION: ^ERMD ORDER ^[id number] ^1251 ^Y COMPARISON: 01/16/2018 FINDINGS: AP view TUBES and LINES: None. LUNGS: Low lung volumes. Mild central vascular congestion. There is no evidence of pneumonia. PLEURA: No pleural effusion or pneumothorax. HEART AND MEDIASTINUM: The cardiomediastinal silhouette is mildly enlarged on this AP view. BONES AND SOFT TISSUES: No acute osseous lesion. Soft tissues are unremarkable. UPPER ABDOMEN: No free air under the diaphragm. IMPRESSION: Mild central vascular congestion. Otherwise, unremarkable. Signed by: Dr. Alex Ramos MD on 11/04/2018 1:07 PM
[2018-11-04 13:14] LABS: ALBUMIN 3.8 g/dL (3.5-5.0); ALBUMIN/GLOBULIN RATIO 0.8 (0.8-2.0); ANION GAP 22.7 mmol/L (8-16); CALCIUM 9.6 mg/dL (8.4-10.2); CREATININE, SERUM 2.8 mg/dL (0.57-1.11); POTASSIUM 3.7 mmol/L (3.5-5.1)
[2018-11-04 13:17] LABS: BACTERIA,URINE FEW /HPF; EPITHELIAL CELLS,URINE MODERATE /LPF; MUCUS,URINE FEW (RARE); RBC,URINE 21-50 /HPF (0-5)
[2018-11-04 13:20] LABS: CREATINE KINASE MB 1.1 ng/mL (0-5.0)
[2018-11-04] MEDS ORDERED: INSULIN REGULAR, HUMAN 100 UNIT/1 ML 3ML VIAL IV NR (13:30)
[2018-11-04 13:53] LABS: AMPHETAMINES SCREEN,URINE NEGATIVE (NEGATIVE); BENZODIAZEPINES SCREEN,URINE POSITIVE (NEGATIVE); PHENCYCLIDINE SCREEN,URINE NEGATIVE (NEGATIVE)
[2018-11-04 13:55] LABS: ACETAMINOPHEN < 3 ug/mL (10-30); SALICYLATE < 5.0 mg/dL (0-30)
[2018-11-04] MEDS ORDERED: SODIUM CHLORIDE 0.9% 1000ML 1,000 ML ONE (14:27)
[2018-11-04] MEDS ORDERED: INSULIN REGULAR, HUMAN 100 UNIT/1 ML 3ML VIAL SQ ONE (14:30)
[2018-11-04] MEDS ORDERED: MORPHINE SULFATE INJ 4 MG/ML INJ 1ML IV PRN (14:30)
[2018-11-04] MEDS ORDERED: ONDANSETRON HCL INJ 2MG/ML 2ML 2 MG/ML VIAL IV PRN (14:30)
[2018-11-04] MEDS: SODIUM CHLORIDE 0.9% 1000ML 1,000 ML IV SCH ×2 (14:34→21:30)
[2018-11-04] MEDS: CEFTRIAXONE SOD 1 GM/NS 50 ML 50 ML IV SCH (15:01)
[2018-11-04] MEDS ORDERED: DEXTROSE 50% SYRINGE 50 ML IV PRN (15:45)
[2018-11-04 17:30] VITALS: BP 94/81
[2018-11-04] MEDS: INSULIN REGULAR, HUMAN 100 UNIT/1 ML 3ML VIAL SQ SCH ×2 (17:30→21:38)
[2018-11-04 17:51] VITALS: BP 94/81
[2018-11-04 17:54] VITALS: BP 94/81
--- NOTE | 2018-11-04 19:10 | NUR ---
Patient visited in room during nursing rounds. Patient alert and oriented x3. Pt appear very anxious and crying. Pt c/o she has pain all over her body (10/10 on pain scale). Stage 3 noted on sacrum and will be dressed with Allevyn tonight. Pt to be turned Q2hrs. IVF (NS at 125ml/hr) infusing. Limb alert on left arm (PMH of cystectomy on left breast). Pt will be medicated accordingly. Call larios within reach.
[2018-11-04 20:00] VITALS: BP 112/53
--- NOTE | 2018-11-04 20:00 | NUR ---
Allevyn dressing applied on stage 3 wound to right and left buttocks. Diaper changed and letha care done on pt.
--- NOTE | 2018-11-04 20:16 | NUR ---
Called Dr. Real and informed him patient being restless/anxious and requests for sleeping med. Informed pt c/o generalized pain. MD aware and continued most home meds. MD also ordered Temazepam 15mg PO for sleep. MD requested to do one more set of cardiac markers tonight (sales support technician informed to draw blood work).
[2018-11-04] MEDS ORDERED: NON-FORMULARY MEDICATION (Pravastatin Sodium 40 MG) PO SCH (21:00)
[2018-11-04] MEDS: CARVEDILOL 12.5 MG TAB PO SCH (21:00)
[2018-11-04] MEDS: MORPHINE SULFATE 2 MG/ML SYR 1ML IV PRN (21:23)
[2018-11-04] MEDS: TIZANIDINE HCL 4 MG TAB PO SCH (21:28)
[2018-11-04] MEDS: TEMAZEPAM 15 MG CAP PO PRN (21:28)
[2018-11-04] MEDS: ALPRAZOLAM 0.5 MG TAB PO SCH (21:28)
[2018-11-04] MEDS: TORSEMIDE 10 MG TAB PO SCH (21:28)
[2018-11-04] MEDS: PRAVASTATIN 20 MG TAB PO SCH (21:28)
--- NOTE | 2018-11-04 21:37 | NUR ---
Dr. Real arrived and saw pt in room (197). spoke with patient and aware of patient condition. verbally ordered to nurse (Matteo) that he wants to order case management consult for PT evaluation and SNF evaluation.
[2018-11-04 22:16] LABS: CREATINE KINASE MB 1.1 ng/mL (0-5.0)
[2018-11-05] VITALS (11 sets, daily range): BP systolic 92–124; BP diastolic 50–67
[2018-11-05] MEDS: MORPHINE SULFATE 2 MG/ML SYR 1ML IV PRN ×4 (02:24→22:00)
--- NOTE | 2018-11-05 02:25 | History and Physical ---
CHIEF COMPLAINT: This is a 72-year-old female, who comes in with abdominal pain, generalized weakness, and was admitted for failure to thrive. HISTORY OF PRESENTING ILLNESS: Ms. Gloria Ovalles who is a 72-year-old female with uncontrolled diabetes, was in her usual state of health until the patient started to have elevated blood sugars, started to have generalized abdominal pain and also body aches with intensity of 8/10, and the patient noticed that her legs are weak and also upper extremity weakness, diarrhea, and mixed constipation. The patient came in and was admitted to the hospital for failure to thrive. PAST MEDICAL HISTORY: History of low back pain, history of uncontrolled diabetes mellitus, history of neuropathy, history of chronic low back pain, history of CAD, history of heart failure, history of hypertension, history of hyperlipidemia, and reflux esophagitis. The patient also has history of anxiety. MEDICATIONS: She takes at home are alprazolam 0.5 mg twice a day, carvedilol 12.5 mg twice a day, [place] 10/325 q.8 hours as needed, nitrofurantoin 100 mg q.12, pantoprazole 40 mg daily, pravastatin 40 mg daily, Lyrica 75 mg daily, Bactrim 1 tablet p.o. b.i.d., tizanidine 4 mg daily, and torsemide 10 mg daily. 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 The patient's other surgical histories include left breast lumpectomy and history of fall with open reduction and internal fixation of the femur. The patient also had hysterectomy and coronary stents as mentioned above. SOCIAL HISTORY: No EtOH. No IV drug abuse. No history of smoking. The patient lives with and also her child. REVIEW OF SYSTEMS: Negative for chest pain. Positive shortness of breath. Positive nausea. No vomiting. No diarrhea. Positive for constipation. No rectal bleeding. No hematochezia. No hematemesis. Positive for generalized abdominal pain. Positive for weakness. Positive for headaches and also for blurry vision. ALLERGIES: NO DRUG ALLERGIES. PHYSICAL EXAMINATION: VITAL SIGNS: Temperature is 97.6, pulse of 79, blood pressure is 94/81, respirations of 14. The patient is on O2 on room air. HEENT: Normocephalic, atraumatic. Poor hygiene. CVS: S1 and S2. Regular rate and rhythm. ABDOMEN: Nontender, nondistended. EXTREMITIES: Positive for trace edema. LABORATORY VALUES: Initial white count was 10.03, hemoglobin 14.2, hematocrit of 42.1. Chemistry showed sodium 131, potassium of 3.7, BUN of 55, creatinine of 2.80, glucose of 516. CK, CK-MB, and troponins were negative. Toxicology, positive for opioids and also positive for benzodiazepines. Urine; blood positive, rbc's and wbc's are high, nitrites negative, and leukocyte esterase small. IMAGING STUDIES: Chest x-ray was done, shows mild central vascular congestion, otherwise normal. ASSESSMENT: 1. A 72-year-old female with failure to thrive. 2. Generalized weakness. 3. Uncontrolled diabetes mellitus. 4. Acute kidney injury. 5. Dehydration. 6. Hyperosmolar. PLAN: Continue with fluids at this time. The patient will be continued on her home medication. Physical Therapy to monitor the patient's disability and social service consult or a case management consult for SNF. Discharge the patient as soon as the bed is available and as far as Physical Therapy evaluate and the patient has been treated. MD MAYITO Neff/DANIELL /[id number]
[2018-11-05] MEDS: SODIUM CHLORIDE 0.9% 1000ML 1,000 ML IV SCH ×3 (04:43→22:27)
--- NOTE | 2018-11-05 06:38 | NUR ---
Dr. Real came and saw pt. aware of pt condition. ordered Lantus 10 units QHS to start tonight.
[2018-11-05 06:59] LABS: CREATINE KINASE MB 0.7 ng/mL (0-5.0)
[2018-11-05] MEDS: INSULIN REGULAR, HUMAN 100 UNIT/1 ML 3ML VIAL SQ SCH ×4 (07:30→21:50)
--- NOTE | 2018-11-05 07:40 | Progress Note ---
DATE: SUBJECTIVE: This is a 72-year-old female, who comes in with generalized debility, failure to thrive, and also generalized abdominal and body aches. Currently, the patient is still complaining of body aches, moaning and groaning in pain. Has not slept. Blood sugars have been running in the 300s. The patient currently has no chest pain. No shortness of breath. Feeling cold. No nausea, vomiting, or diarrhea. No constipation and no rectal bleeding reported from the staff. The patient has a stage II decubitus ulcer that was noticed yesterday by the nursing. OBJECTIVE: VITAL SIGNS: Temperature 96.5, pulse of 70, blood pressure is 110/50, pulse oximetry 100% on room air. HEENT: Normocephalic, atraumatic. The patient is obese. CVS: S1-S2 distant. Regular rate and rhythm. Ejection systolic murmur present. LUNGS: Decreased air entry. Otherwise clear. ABDOMEN: Protuberant, nontender, nondistended. EXTREMITIES: No clubbing, no cyanosis, and trace edema. LABORATORY DATA: Laboratory values from yesterday 10.3, hemoglobin of 14.2. Chemistries, glucose has been running at 386. Initial labs, glucose of 516, BUN of 55, creatinine of 2.80. The patient's coags are normal. IMAGING STUDIES: Chest x-ray was essentially mild central vascular congestion, otherwise unremarkable. ASSESSMENT: A 72-year-old female with: 1. Failure to thrive. 2. Chronic pain. 3. Generalized debility and weakness. 4. Uncontrolled diabetes mellitus. 5. Acute kidney injury. 6. Dehydration. 7. Chronic pain syndrome. PLAN: Continue with fluids, resuscitation. We will go ahead and check her kidney function tomorrow. We will continue monitoring the patient's lytes. Physical Therapy will be consulted. Evaluation will be done, possible SNF consult and discharge when available. Further recommendation per clinical course. We will continue to monitor the patient. MD MAYITO Neff/MODL /[id number]
[2018-11-05] MEDS: CARVEDILOL 12.5 MG TAB PO SCH ×2 (08:10→16:32)
[2018-11-05] MEDS: PANTOPRAZOLE SOD 40 MG TABEC PO SCH (08:10)
[2018-11-05] MEDS: TIZANIDINE HCL 4 MG TAB PO SCH ×2 (08:10→16:32)
[2018-11-05] MEDS: TORSEMIDE 10 MG TAB PO SCH ×2 (08:10→16:32)
[2018-11-05] MEDS: NITROFURANTOIN MACROCRYSTALS 100 MG CAP PO SCH ×2 (08:10→21:51)
[2018-11-05] MEDS: PREGABALIN 75 MG CAP PO SCH (08:10)
[2018-11-05] MEDS: ALPRAZOLAM 0.5 MG TAB PO SCH ×2 (08:10→16:32)
[2018-11-05] MEDS ORDERED: INSULIN DETEMIR U SQ SCH (09:00)
[2018-11-05] MEDS ORDERED: INSULIN GLARGINE 100 UNITS/ML VIAL SQ SCH ×2 (09:00→21:00)
[2018-11-05] MEDS: CEFTRIAXONE SOD 1 GM/NS 50 ML 50 ML IV SCH (13:12)
--- NOTE | 2018-11-05 19:00 | NUR ---
Received patient from day nurse, patient alert, however falls back to sleep easily, as per day nurse, patient has received xanax, gabapentin and morphine during her shift, day nurse also confirmed that patient bp was low throughout the day and that is her baseline, patient bp 95/53. ki=854, will continue to monitor.
--- NOTE | 2018-11-05 21:47 | NUR ---
patient is widely awake and oriented, requesting for her medications
[2018-11-05] MEDS: PRAVASTATIN 20 MG TAB PO SCH (21:51)
[2018-11-05] MEDS ORDERED: DIPHENHYDRAMINE HCL 25 MG CAP PO STA (22:07)
[2018-11-05] MEDS: TEMAZEPAM 15 MG CAP PO PRN (22:28)
[2018-11-06] VITALS (7 sets, daily range): BP systolic 90–124; BP diastolic 46–74
[2018-11-06] MEDS: SODIUM CHLORIDE 0.9% 1000ML 1,000 ML IV SCH ×3 (00:16→15:43)
[2018-11-06] MEDS: MORPHINE SULFATE 2 MG/ML SYR 1ML IV PRN ×3 (04:08→21:41)
[2018-11-06 05:15] LABS: BASOPHILS % 0.5 % (0.0-1.0); EOSINOPHILS # (AUTO) 0.1 (0.0-0.4); EOSINOPHILS % 1.8 % (0.0-6.0); HEMATOCRIT 36.5 % (34.2-44.1); HEMOGLOBIN 12.1 g/dL (12.0-16.0); LYMPHOCYTES # (AUTO) 1.8 (1.0-3.2); MEAN CORPUSCULAR HEMOGLOBIN 28.3 pg (28-32); MEAN CORPUSCULAR HGB CONC 33.2 g/dL (31-35); MEAN CORPUSCULAR VOLUME 85.5 fL (81-99); MONOCYTES # (AUTO) 0.6 (0.2-0.8); MONOCYTES % 7.9 % (4.4-11.3); NEUTROPHILS % 65.3 % (38.7-80.0); PLATELET COUNT 221 x10e3/uL (140-360); RED BLOOD COUNT 4.27 x10e6/uL (3.6-5.1)
[2018-11-06 05:34] LABS: CALCIUM 8.2 mg/dL (8.4-10.2); CREATININE, SERUM 1.79 mg/dL (0.57-1.11)
--- NOTE | 2018-11-06 06:48 | NUR ---
patient condition throughout the night was stable, ;patient endorsed to next shift for continuity of care.
--- NOTE | 2018-11-06 07:00 | NUR ---
Pt received resting in bed. Alert and oriented x4. Oriented to staff and surroundings. Encouraged to press call larios if help needed. Call larios within reach. Pt with right arm saline lock leaking. Will reinsert new IV. Call larios within reach. Will monitor
[2018-11-06] MEDS ORDERED: POTASSIUM CHLORIDE 20 MEQ TAB CR PO ONE (07:25)
[2018-11-06] MEDS: INSULIN GLARGINE 100 UNITS/ML VIAL SQ SCH (08:10)
[2018-11-06] MEDS: INSULIN REGULAR, HUMAN 100 UNIT/1 ML 3ML VIAL SQ SCH ×4 (08:10→21:30)
[2018-11-06] MEDS: HYDROCODONE/APAP 10MG-325MG TAB PO PRN (08:10)
--- NOTE | 2018-11-06 08:10 | NUR ---
All meds given as ordered. Call larios within reach. Saline lock inserted into right forearm. Will monitor
[2018-11-06] MEDS: PREGABALIN 75 MG CAP PO SCH (08:12)
[2018-11-06] MEDS: ALPRAZOLAM 0.5 MG TAB PO SCH ×2 (08:12→18:30)
[2018-11-06] MEDS: TIZANIDINE HCL 4 MG TAB PO SCH ×2 (08:12→18:30)
[2018-11-06] MEDS: NITROFURANTOIN MACROCRYSTALS 100 MG CAP PO SCH ×2 (08:12→21:07)
[2018-11-06] MEDS: PANTOPRAZOLE SOD 40 MG TABEC PO SCH (08:12)
[2018-11-06] MEDS: CARVEDILOL 12.5 MG TAB PO SCH ×2 (09:00→17:00)
[2018-11-06] MEDS: HYDROCHLOROTHIAZIDE 25 MG TAB PO SCH (09:00)
[2018-11-06] MEDS: AMLODIPINE BESYLATE 10 MG TAB PO SCH (09:00)
[2018-11-06] MEDS: VALSARTAN 160 MG TAB PO SCH (09:00)
[2018-11-06] MEDS: TORSEMIDE 10 MG TAB PO SCH (09:00)
--- NOTE | 2018-11-06 11:37 | Progress Note ---
DATE: SUBJECTIVE: The patient is a 72-year-old female, who comes in with failure to thrive, inability to walk, and also decline in general health. Currently, the patient is asleep, arousable. No chest pain. No shortness of breath. Complaints of generalized pain, which is 8/10 in intensity even with her medications. No chest pain. No shortness of breath. OBJECTIVE: VITAL SIGNS: Temperature is 98.7, pulse of 78, respirations of 20, blood pressure is 124/74. HEENT: Normocephalic, atraumatic. Pupils are reactive to light and accommodation. CVS: S1, S2 normal. Regular rate and rhythm. LUNGS: Clear. ABDOMEN: Nontender, nondistended. EXTREMITIES: No clubbing, no cyanosis, no edema. LABORATORY DATA: All within normal limit. Chemistries; potassium is 3.0, BUN 40, creatinine of 1.79, glucose is running in the 380 to 300, calcium was 8.2. ASSESSMENT: 1. A 72-year-old female with failure to thrive. 2. Chronic pain. 3. Uncontrolled diabetes mellitus. 4. Acute kidney injury. 5. Dehydration. 6. Chronic pain. PLAN: 1. Physical therapy to assess the patient. Once assessed, the patient can be discharged to SNF when bed is available. She needs physical therapy and continue of care. MD MAYITO Neff/MODL /[id number]
--- NOTE | 2018-11-06 12:08 | NUR ---
EDUCATED ABOUT IMM, SIGNED, FILED IN CHART, WITH COPY LEFT WITH FAMILY AT BEDSIDE.
--- NOTE | 2018-11-06 13:43 | NUR ---
Wound evaluation for multiple wound issues. Patient's spouse at bedside who has been treating her wounds with some type of cream from the doctor. Patient remains quite immobile at home, staying in the bed mostly. She has had a bought of diarrhea recently, but also experiences urinary incontinence. States that the affected area friedman but does not itch. Unsure of the ability to maintain good hygiene at home with incontinence. She currently has several areas of concerns as follows: Sacrum DTI Inner buttock: R US pressure ulcer L US pressure ulcer (multiple openings) Perineal incontinence dermatitis. The patient was admitted with elevated glucose in the 500 range. Her WBC count is 7.64 Albumin is 3.8. The patient complains of multiple issues preventing mobility. Encouraged mobility. Out of Bed for meals. Recommendation is no closed incontinence brief. Wash with perineal area with soap and water, pat dry apply venelex/ and nystatin powder. apply daily and s/p incontinence. cleanse buttocks wounds with normal saline then apply venelex to buttocks and sacral wounds daily. Cover with allevyn foam. Alternating pressure relief mattress set to current wait. Turn q 2 hrs. Heel protectors with pillow suspensions. Out of bed to chair for meals. Patient and family educated to pressure relief and incontinence, and mobility. Primary nurse made aware of plan of care.
--- NOTE | 2018-11-06 14:37 | NUR ---
SPOKE WITH [facility] [phone], HE STATES [facility] [place] [facility] IS FINE, FILED CHOICE FORM IN CHART AND WILL COPY CHART TO SUBMIT TO FACILITY WITH PASRR AND RTF IN PACKET TO COMPLETE TRANSFER, AFTER 3 DAY MEDICARE STAY REQUIREMENT MET.
[2018-11-06] MEDS: CEFTRIAXONE SOD 1 GM/NS 50 ML 50 ML IV SCH (15:43)
--- NOTE | 2018-11-06 17:20 | NUR ---
Pt received from ER resting in bed. Alert and oriented x4, saline lock #18 patent in right AC. Oriented to staff and surroundings. Encouraged to press call larios if help needed. Call larios within reach. Call larios within reach. Will monitor Addendum: 11/06/18 at 1757 by Sven Markham RN Above note entered in Error
[2018-11-06] MEDS: NYSTATIN 15 GM POWDER UD BTL TOP SCH (18:29)
--- NOTE | 2018-11-06 19:28 | NUR ---
Patient received lying in bed. AAO x 3. Patient complained of pain to sacral /lower back region (09/04). Will administer medication per eMAR. Respirations even and non-labored. Fall precautions implemented. Patient instructed to call for assistance when needed. Call light within reach.
[2018-11-06] MEDS ORDERED: INSULIN GLARGINE 100 UNITS/ML VIAL SQ SCH (21:00)
[2018-11-06] MEDS: PRAVASTATIN 20 MG TAB PO SCH (21:07)
[2018-11-07] VITALS: BP 105/56
[2018-11-07] MEDS: TEMAZEPAM 15 MG CAP PO PRN (00:38)
--- NOTE | 2018-11-07 03:25 | NUR ---
Wound dressing performed as per MD's orders. Patient tolerated well
[2018-11-07] MEDS: MORPHINE SULFATE 2 MG/ML SYR 1ML IV PRN ×2 (05:17→09:27)
[2018-11-07 06:00] VITALS: BP 118/52
[2018-11-07] MEDS: SODIUM CHLORIDE 0.9% 1000ML 1,000 ML IV SCH (06:24)
--- NOTE | 2018-11-07 06:51 | NUR ---
Walking rounds done. Shift report given to oncoming nurse.
[2018-11-07] MEDS: INSULIN REGULAR, HUMAN 100 UNIT/1 ML 3ML VIAL SQ SCH ×2 (07:30→12:21)
[2018-11-07] MEDS: CARVEDILOL 12.5 MG TAB PO SCH (08:56)
[2018-11-07] MEDS: TORSEMIDE 10 MG TAB PO SCH (08:56)
[2018-11-07] MEDS: NITROFURANTOIN MACROCRYSTALS 100 MG CAP PO SCH (08:57)
[2018-11-07] MEDS: TIZANIDINE HCL 4 MG TAB PO SCH (08:57)
[2018-11-07] MEDS: VALSARTAN 160 MG TAB PO SCH (08:57)
[2018-11-07] MEDS: AMLODIPINE BESYLATE 10 MG TAB PO SCH (08:57)
[2018-11-07] MEDS: PANTOPRAZOLE SOD 40 MG TABEC PO SCH (08:57)
[2018-11-07] MEDS: ALPRAZOLAM 0.5 MG TAB PO SCH (08:57)
[2018-11-07] MEDS: PREGABALIN 75 MG CAP PO SCH (08:57)
[2018-11-07] MEDS: HYDROCHLOROTHIAZIDE 25 MG TAB PO SCH (08:57)
[2018-11-07] MEDS: NYSTATIN 15 GM POWDER UD BTL TOP SCH (08:58)
[2018-11-07] MEDS ORDERED: BALSAM PERU/CASTOR OIL 60 GM OINT...G. TP SCH (09:00)
[2018-11-07] MEDS: INSULIN GLARGINE 100 UNITS/ML VIAL SQ SCH (09:00)
[2018-11-07 09:05] VITALS: BP 135/71
[2018-11-07 09:20] VITALS: BP 135/71
--- NOTE | 2018-11-07 09:32 | Progress Note ---
DATE: SUBJECTIVE: The patient is a 72-year-old female, who comes in with generalized debility. The patient is currently on Rocephin and Macrobid for presumably urinary tract infection. Urine culture showed contamination, otherwise normal. The patient is nonambulatory at this time. Takes few steps and tires out, needs SNF. No chest pain. No shortness of breath. Positive for generalized weakness and also for generalized body aches. PHYSICAL EXAMINATION: VITAL SIGNS: Temperature is 98 afebrile, pulse of 77, blood pressure is 105/56, pulse oximetry of 94% on room air. HEENT: Normocephalic, atraumatic. Pupils are reactive. ABDOMEN: Nontender, nondistended. EXTREMITIES: No clubbing, no cyanosis. Trace edema. The patient does have generalized body aches and weakness. Strength is diminished in all extremities, pain restricted. LABORATORY DATA: Done on 11/06/2018 were all within normal limits. Chemistries show BUN and creatinine of 40 and 1.7, glucose of 190s to 240s. ASSESSMENT: 1. A 72-year-old female with failure to thrive. 2. Urinary tract infection. Cultures negative. 3. Chronic pain. 4. Acute kidney injury. 5. Dehydration, which is resolved. 6. Chronic pain. PLAN: With her debility and also her marked deconditioning, the patient will need SNF for further rehabilitation care. Once the SNF room was found, the patient can be discharged. Further recommendation per clinical course and also on progression of the disease. MD MAYITO Neff/DANIELL /[id number]
--- NOTE | 2018-11-07 10:07 | NUR ---
ASSESSMENT: Spiritual distress Consult request from RN. Pt is worried and afraid. Pt states she is worried about what will happen to her children, "after I'm gone." Pt states she has a special needs child who is in her 50's. Pt states she has other children as well. Additionally, pt wanted to discuss sikhism and political issues. Pt identifies as Sabianist Faith. Intervention: Provided unhurried empathic pastoral listening. Facilitated identification of emotions. Provided prayer and scripture. Provided information on how to reach car top bolter, if needed. Outcome: Pt expressed appreciation for visit and support. Will follow as able. ELAINE TORRES Professional Employer Consultant Spiritual Care Department O: [phone] Pager: [phone] ([phone] number calling from)
--- NOTE | 2018-11-07 10:17 | NUR ---
PT ACCEPTED TO ROOM [address] LISA HOFFMAN, AT [facility] CALL REPORT TO [phone]
--- NOTE | 2018-11-07 10:56 | NUR ---
CALLED [facility] OFFICE NUMBER, RECEIVED ANSWERING SERVICE, ASKED FOR ASSOCIATE TO CALL THE PHYSICIAN, SHE STATED THAT SHE WILL PAGE THE PHYSICIAN FOR DISCHARGE ORDERS.
--- NOTE | 2018-11-07 11:35 | NUR ---
CALLED THE [facility], FIRST TIME THE NURSE DID NOT ANSWER WHILE IN HOLD FOR 5 MINUTES, SECOND TIME THE SUPERVISOR ELECTRIC STATED THAT SHE WILL TELL THE NURSE TO CALL BACK.
--- NOTE | 2018-11-07 11:45 | NUR ---
CALLED THE [facility], GAVE REPORT TO EVY PRICE, .
[2018-11-07] MEDS: HYDROCODONE/APAP 10MG-325MG TAB PO PRN (12:26)
[2018-12-06] MEDS ORDERED: DIPHENHYDRAMINE HCL 25 MG CAP PO PRN (04:00)
== END 2018-11-07 13:30 | DRG 640 ==
LOC: ER 12:30 → ERHOLD 14:47 → IMCU 17:30
PROVIDERS: ADMIT Family Medicine; ATTEND Family Medicine
DX: R62.7 Adult failure to thrive (principal); E11.00 Type 2 diabetes mellitus with hyperosmolarity without nonketotic hyperglycemic-hyperosmolar coma (NKHHC); N17.9 Acute kidney failure, unspecified; N18.4 Chronic kidney disease, stage 4 (severe); E11.65 Type 2 diabetes mellitus with hyperglycemia; E86.0 Dehydration; Z79.4 Long term (current) use of insulin; Z68.33 Body mass index [BMI] 33.0-33.9, adult; M54.5 Low back pain; E11.40 Type 2 diabetes mellitus with diabetic neuropathy, unspecified; E78.5 Hyperlipidemia, unspecified; K20.9 Esophagitis, unspecified; K59.00 Constipation, unspecified; F41.9 Anxiety disorder, unspecified; I25.10 Atherosclerotic heart disease of native coronary artery without angina pectoris; R19.7 Diarrhea, unspecified; Z95.5 Presence of coronary angioplasty implant and graft; E11.22 Type 2 diabetes mellitus with diabetic chronic kidney disease; I12.9 Hypertensive chronic kidney disease with stage 1 through stage 4 chronic kidney disease, or unspecified chronic kidney disease; G89.4 Chronic pain syndrome
CPT/HCPCS: 36415; 71045; 80048; 80053; 80307; 80320; 80329; 81001; 82550; 82553; 82948; 83880; 84484; 85025; 85610; 85730; 87086; 93005; 96361; 96372; 97139; 99285; J0696; J1815; J1817; J2270; J2405; J7030

== ENCOUNTER 2020-12-12 13:02 | Emergency (ER) | payer MEDICARE, OTHER ==
[~2020-12-12] VITALS: Ht 160 cm; Wt 85.7 kg
== END 2020-12-12 14:37 | disposition home or self-care (01) ==
LOC: ER 13:36
DX: L89.893 Pressure ulcer of other site, stage 3 (principal); L89.322 Pressure ulcer of left buttock, stage 2; L89.312 Pressure ulcer of right buttock, stage 2; G89.29 Other chronic pain; E11.65 Type 2 diabetes mellitus with hyperglycemia; I10 Essential (primary) hypertension; I25.10 Atherosclerotic heart disease of native coronary artery without angina pectoris; I25.2 Old myocardial infarction
CPT/HCPCS: 36415; 82948; 99283

== ENCOUNTER 2021-09-18 20:41 | Inpatient (IN) | payer MEDICARE, OTHER ==
[~2021-09-18] VITALS: Ht 160 cm; Wt 85.7 kg
[2021-09-18] MEDS ORDERED: ACETAMINOPHEN 1000 MG/100 ML IV STA (20:47)
[2021-09-18] MEDS ORDERED: SODIUM CHLORIDE 0.9% 1000ML 1,000 ML IV ONE (21:00)
[2021-09-18 21:46] LABS: ALBUMIN 3.3 g/dL (3.5-5.0); ALBUMIN/GLOBULIN RATIO 0.6 (0.8-2.0); ANION GAP 23.2 mmol/L (8-16); CALCIUM 8.5 mg/dL (8.4-10.2); CREATININE, SERUM 1.52 mg/dL (0.57-1.11); POTASSIUM 5.2 mmol/L (3.5-5.1)
[2021-09-18 21:52] LABS: BASOPHILS % 0.4 % (0.0-1.0); EOSINOPHILS % 0.2 % (0.0-6.0); HEMATOCRIT 40.3 % (34.2-44.1); HEMOGLOBIN 12.8 g/dL (12.0-16.0); LYMPHOCYTES % 9.8 % (18.0-39.1); MEAN CORPUSCULAR HEMOGLOBIN 27.4 pg (28-32); MEAN CORPUSCULAR HGB CONC 31.8 g/dL (31-35); MEAN CORPUSCULAR VOLUME 86.1 fL (81-99); MONOCYTES # (AUTO) 0.6 (0.2-0.8); MONOCYTES % 5.7 % (4.4-11.3); NEUTROPHILS # (AUTO) 8.6 (2.1-6.9); NEUTROPHILS % 82.9 % (38.7-80.0); PLATELET COUNT 267 x10e3/uL (140-360); RED BLOOD COUNT 4.68 x10e6/uL (3.6-5.1); RED CELL DISTRIBUTION WIDTH 15.2 % (11.7-14.4)
[2021-09-18 21:56] LABS: CLARITY,URINE CLOUDY (CLEAR); COLOR,URINE YELLOW (YELLOW); LEUKOCYTE ESTERASE ,URINE SMALL (NEGATIVE); NITRITE,URINE POSITIVE (NEGATIVE); PROTEIN,URINE DIPSTICK 1+ (NEGATIVE)
[2021-09-18 21:57] LABS: KETONES,URINE 2+ (NEGATIVE); URINE UROBILINOGEN 0.2 mg/dL (0.2 - 1)
[2021-09-18 21:58] LABS: CREATINE KINASE MB 0.3 ng/mL (0-5.0)
[2021-09-18] MEDS ORDERED: INSULIN REGULAR IN 0.9 % NACL 100 ML IV SCH (22:00)
[2021-09-18] MEDS ORDERED: POTASSIUM CHLORIDE 20MEQ/100ML 200 ML IV PRN (22:00)
[2021-09-18] MEDS: DEXTROSE 5%/0.45% SOD CHL 1,000 ML IV SCH (22:00)
[2021-09-18 22:04] LABS: BACTERIA,URINE MANY /HPF; EPITHELIAL CELLS,URINE MODERATE /LPF; WBC,URINE (MAN) >50 /HPF (0-5)
[2021-09-18] MEDS ORDERED: HALOPERIDOL LACTATE 5 MG/ML VIAL IM ONE (22:30)
[2021-09-18] MEDS ORDERED: HALOPERIDOL LACTATE 5 MG/ML VIAL ONE (22:39)
[2021-09-18 22:42] LABS: ABG PCO2 25 mmHg (35-45)
[2021-09-18 22:43] LABS: ABG HCO3 16 mmol/L (22-26); ABG PO2 86 mmHg (80-105); ABG TCO2 16
[2021-09-18] MEDS ORDERED: INSULIN REGULAR, HUMAN 100 UNIT/1 ML ONE (22:57)
[2021-09-18] MEDS ORDERED: SODIUM CHLORIDE 0.9% 100 ML ONE (22:57)
[2021-09-18] MEDS: SODIUM CHLORIDE 0.9% 1000ML 1,000 ML IV SCH (23:00)
[2021-09-18] MEDS ORDERED: ZIPRASIDONE 20 MG VIAL IM ONE (23:15)
[2021-09-18] MEDS ORDERED: SODIUM CHLORIDE FLUSH 10 ML SYR INJ PRN (23:30)
[2021-09-19] VITALS (32 sets, daily range): BP systolic 98–201; BP diastolic 45–113
[2021-09-19 02:27] LABS: ANION GAP 18.5 mmol/L (8-16); CALCIUM 7.6 mg/dL (8.4-10.2); CREATININE, SERUM 1.39 mg/dL (0.57-1.11); MAGNESIUM 1.7 MG/DL (1.3-2.1); POTASSIUM 3.5 mmol/L (3.5-5.1)
[2021-09-19] MEDS: MAGNESIUM SULF 1GRAM/DEXTROSE 100 ML IV PRN ×2 (02:48→03:00)
[2021-09-19] MEDS ORDERED: MAGNESIUM SULF 1GRAM/DEXTROSE 100 ML IV ONE (03:00)
[2021-09-19] MEDS: SODIUM CHLORIDE 0.9% 1000ML 1,000 ML IV SCH ×2 (03:44→03:51)
[2021-09-19] MEDS: DEXTROSE 5%/0.45% SOD CHL 1,000 ML IV SCH (05:44)
[2021-09-19 06:31] LABS: HEMATOCRIT 35.7 % (34.2-44.1); HEMOGLOBIN 11.3 g/dL (12.0-16.0); MEAN CORPUSCULAR HEMOGLOBIN 27.4 pg (28-32); MEAN CORPUSCULAR HGB CONC 31.7 g/dL (31-35); MEAN CORPUSCULAR VOLUME 86.7 fL (81-99); PLATELET COUNT 243 x10e3/uL (140-360); RED BLOOD COUNT 4.12 x10e6/uL (3.6-5.1); RED CELL DISTRIBUTION WIDTH 15.1 % (11.7-14.4)
[2021-09-19 06:53] LABS: ALBUMIN 2.5 g/dL (3.5-5.0); ALBUMIN/GLOBULIN RATIO 0.6 (0.8-2.0); ANION GAP 14.9 mmol/L (8-16); CALCIUM 7.7 mg/dL (8.4-10.2); CREATININE, SERUM 1.1 mg/dL (0.57-1.11); POTASSIUM 3.9 mmol/L (3.5-5.1)
[2021-09-19 07:20] LABS: CREATINE KINASE 29 IU/L (29-168)
[2021-09-19] MEDS: ACETAMINOPHEN 1000 MG/100 ML IV PRN ×2 (07:37→18:22)
[2021-09-19] MEDS ORDERED: DEXTROSE 50% SYRINGE 50 ML IV PRN (09:30)
[2021-09-19] MEDS: INSULIN LISPRO 100 UNIT/1 ML 3ML VIAL SQ SCH ×3 (11:24→21:18)
[2021-09-19] MEDS: Ampicillin INJ 2 GM in SODIUM CHLORIDE 0.9% 100 ML IV SCH ×2 (12:28→17:06)
[2021-09-19 12:56] LABS: ANION GAP 18.1 mmol/L (8-16); CALCIUM 7.3 mg/dL (8.4-10.2); CREATININE, SERUM 0.92 mg/dL (0.57-1.11); MAGNESIUM 1.6 MG/DL (1.3-2.1); POTASSIUM 3.1 mmol/L (3.5-5.1)
[2021-09-19] MEDS ORDERED: POTASSIUM CHLORIDE 20MEQ/100ML 100 ML IV ONE (13:45)
[2021-09-19] MEDS: ACYCLOVIR SODIUM 750 MG in SODIUM CHLORIDE 0.9% 250ML 250 ML IV SCH ×2 (15:04→21:08)
[2021-09-19] MEDS: CARVEDILOL 12.5 MG TAB PO SCH (18:21)
[2021-09-19] MEDS: HYDRALAZINE HCL 20 MG/ML VIAL IV PRN (18:23)
[2021-09-19] MEDS ORDERED: SODIUM CHLORIDE 0.9% 500ML 500 ML ONE (21:12)
[2021-09-20] VITALS (27 sets, daily range): BP systolic 135–196; BP diastolic 69–128
[2021-09-20] MEDS: Ampicillin INJ 2 GM in SODIUM CHLORIDE 0.9% 100 ML IV SCH ×4 (00:10→17:07)
[2021-09-20] MEDS: HYDRALAZINE HCL 20 MG/ML VIAL IV PRN ×2 (00:10→21:28)
[2021-09-20] MEDS: ACYCLOVIR SODIUM 750 MG in SODIUM CHLORIDE 0.9% 250ML 250 ML IV SCH ×3 (05:02→21:31)
[2021-09-20 06:56] LABS: BASOPHILS % 0.2 % (0.0-1.0); EOSINOPHILS % 0.1 % (0.0-6.0); HEMATOCRIT 36.1 % (34.2-44.1); HEMOGLOBIN 11.6 g/dL (12.0-16.0); LYMPHOCYTES # (AUTO) 1.4 (1.0-3.2); LYMPHOCYTES % 14.1 % (18.0-39.1); MEAN CORPUSCULAR HEMOGLOBIN 27.5 pg (28-32); MEAN CORPUSCULAR HGB CONC 32.1 g/dL (31-35); MEAN CORPUSCULAR VOLUME 85.5 fL (81-99); MONOCYTES # (AUTO) 0.6 (0.2-0.8); NEUTROPHILS # (AUTO) 7.5 (2.1-6.9); NEUTROPHILS % 78.1 % (38.7-80.0); PLATELET COUNT 235 x10e3/uL (140-360); RED BLOOD COUNT 4.22 x10e6/uL (3.6-5.1)
[2021-09-20 07:09] LABS: INR 1.11; PARTIAL THROMBOPLASTIN TIME 29.4 seconds (23.8-35.5); PROTHROMBIN TIME 15.3 seconds (11.9-14.5)
[2021-09-20 07:15] LABS: ALBUMIN 2.5 g/dL (3.5-5.0); ALBUMIN/GLOBULIN RATIO 0.5 (0.8-2.0); ANION GAP 18.6 mmol/L (8-16); CALCIUM 7.6 mg/dL (8.4-10.2); CREATININE, SERUM 0.95 mg/dL (0.57-1.11); POTASSIUM 3.6 mmol/L (3.5-5.1)
[2021-09-20] MEDS: INSULIN LISPRO 100 UNIT/1 ML 3ML VIAL SQ SCH ×4 (07:53→21:32)
[2021-09-20] MEDS: CEFTRIAXONE 2 GM in SODIUM CHLORIDE 0.9% 100 ML IV SCH (08:37)
[2021-09-20] MEDS: CARVEDILOL 12.5 MG TAB PO SCH ×2 (08:38→16:25)
[2021-09-20] MEDS: VALSARTAN 160 MG TAB PO SCH (08:38)
[2021-09-20] MEDS ORDERED: INSULIN GLARGINE 100 UNITS/ML VIAL SQ SCH (09:00)
[2021-09-20] MEDS: INSULIN GLARGINE 100 UNITS/ML VIAL SQ SCH (16:33)
[2021-09-21] VITALS (23 sets, daily range): BP systolic 118–185; BP diastolic 51–89
[2021-09-21] MEDS: Ampicillin INJ 2 GM in SODIUM CHLORIDE 0.9% 100 ML IV SCH ×4 (00:50→17:13)
[2021-09-21] MEDS: ACYCLOVIR SODIUM 750 MG in SODIUM CHLORIDE 0.9% 250ML 250 ML IV SCH ×3 (05:51→22:25)
[2021-09-21] MEDS ORDERED: SODIUM CHLORIDE 0.9% 250ML 250 ML ONE (06:07)
[2021-09-21] MEDS ORDERED: NYSTATIN 15 GM POWDER UD BTL TOP PRN (07:00)
[2021-09-21] MEDS: INSULIN LISPRO 100 UNIT/1 ML 3ML VIAL SQ SCH ×2 (07:42→12:10)
[2021-09-21] MEDS: CARVEDILOL 12.5 MG TAB PO SCH ×2 (09:58→17:20)
[2021-09-21] MEDS: VALSARTAN 160 MG TAB PO SCH (09:58)
[2021-09-21] MEDS: INSULIN GLARGINE 100 UNITS/ML VIAL SQ SCH ×2 (10:01→17:15)
[2021-09-21] MEDS: CEFTRIAXONE 2 GM in SODIUM CHLORIDE 0.9% 100 ML IV SCH (10:02)
[2021-09-21] MEDS ORDERED: LIDOCAINE HCL 1% LOCAL INJ 20 ML VIAL ONE ×2 (10:58→12:08)
[2021-09-21 12:19] LABS: ANION GAP 18.1 mmol/L (8-16); CALCIUM 7.2 mg/dL (8.4-10.2); CREATININE, SERUM 0.93 mg/dL (0.57-1.11); POTASSIUM 3.1 mmol/L (3.5-5.1)
[2021-09-21] MEDS ORDERED: ONDANSETRON HCL 4 MG ORAL DISINTEGRATING TAB PO ONE (13:15)
[2021-09-21] MEDS ORDERED: DEXTROSE 50% SYRINGE 50 ML IV PRN (13:45)
[2021-09-21] MEDS: INSULIN REGULAR, HUMAN 3ML VL 100 UNIT in SODIUM CHLORIDE 0.9% 100 ML IV SCH ×10 (14:13→23:18)
[2021-09-21] MEDS: BENZONATATE 100 MG CAP PO SCH ×2 (14:16→21:21)
[2021-09-21 14:21] LABS: MAGNESIUM 1.4 MG/DL (1.3-2.1); PHOSPHORUS 2.4 MG/DL (2.3-4.7)
[2021-09-21] MEDS: D5.45%NS/KCL 20MEQ 1,000 ML IV SCH (14:22)
[2021-09-21 14:40] LABS: APPEARANCE,CSF HAZY (CLEAR); COLOR,CSF COLORLESS (COLORLESS); TUBE NUMBER 3
[2021-09-21 14:41] LABS: WHITE BLOOD CELL,CSF 10 cells/uL (0-5)
[2021-09-21 14:42] LABS: FREE T4 (FREE THYROXINE) 0.89 ng/dL (0.8-1.8); THYROID STIMULATING HORMONE 1.556 uIU/mL (0.350-4.940)
[2021-09-21 15:56] LABS: LYMPHOCYTES,CSF 84 % (40-80); MONOCYTES,CSF 9 %; NEUTROPHILS,CSF 7 % (0-6)
[2021-09-21] MEDS ORDERED: HYDROCODONE/APAP 5MG-325MG TAB PO ONE (19:35)
[2021-09-21] MEDS: ENOXAPARIN SOD INJ 40 MG/0.4 ML SYR SC SCH (21:22)
[2021-09-22] VITALS (23 sets, daily range): BP systolic 125–168; BP diastolic 57–90
[2021-09-22] MEDS: Ampicillin INJ 2 GM in SODIUM CHLORIDE 0.9% 100 ML IV SCH ×3 (00:26→11:32)
[2021-09-22] MEDS: INSULIN REGULAR, HUMAN 3ML VL 100 UNIT in SODIUM CHLORIDE 0.9% 100 ML IV SCH ×6 (01:25→05:35)
[2021-09-22] MEDS: D5.45%NS/KCL 20MEQ 1,000 ML IV SCH (01:30)
[2021-09-22 06:39] LABS: BASOPHILS % 0.5 % (0.0-1.0); EOSINOPHILS # (AUTO) 0.1 (0.0-0.4); EOSINOPHILS % 1.3 % (0.0-6.0); HEMATOCRIT 32.3 % (34.2-44.1); HEMOGLOBIN 10.5 g/dL (12.0-16.0); LYMPHOCYTES # (AUTO) 2.4 (1.0-3.2); LYMPHOCYTES % 31.6 % (18.0-39.1); MEAN CORPUSCULAR HEMOGLOBIN 27.3 pg (28-32); MEAN CORPUSCULAR HGB CONC 32.5 g/dL (31-35); MEAN CORPUSCULAR VOLUME 83.9 fL (81-99); MONOCYTES # (AUTO) 0.8 (0.2-0.8); MONOCYTES % 9.8 % (4.4-11.3); NEUTROPHILS # (AUTO) 4.3 (2.1-6.9); NEUTROPHILS % 55.9 % (38.7-80.0); PLATELET COUNT 282 x10e3/uL (140-360); RED BLOOD COUNT 3.85 x10e6/uL (3.6-5.1); RED CELL DISTRIBUTION WIDTH 14.8 % (11.7-14.4)
[2021-09-22] MEDS: ACYCLOVIR SODIUM 750 MG in SODIUM CHLORIDE 0.9% 250ML 250 ML IV SCH ×2 (06:40→14:00)
[2021-09-22 07:05] LABS: ALBUMIN 2.3 g/dL (3.5-5.0); ALBUMIN/GLOBULIN RATIO 0.6 (0.8-2.0); ANION GAP 11.8 mmol/L (8-16); CREATININE, SERUM 0.75 mg/dL (0.57-1.11)
[2021-09-22 07:06] LABS: CALCIUM 6.9 mg/dL (8.4-10.2); POTASSIUM 2.8 mmol/L (3.5-5.1)
[2021-09-22] MEDS ORDERED: POTASSIUM CHLORIDE 20 MEQ TAB CR PO PRN (08:45)
[2021-09-22] MEDS: CEFTRIAXONE 2 GM in SODIUM CHLORIDE 0.9% 100 ML IV SCH (08:57)
[2021-09-22] MEDS: BENZONATATE 100 MG CAP PO SCH ×3 (08:58→21:56)
[2021-09-22] MEDS: CARVEDILOL 12.5 MG TAB PO SCH ×2 (08:58→18:04)
[2021-09-22] MEDS: VALSARTAN 160 MG TAB PO SCH (08:58)
[2021-09-22] MEDS: ENOXAPARIN SOD INJ 40 MG/0.4 ML SYR SC SCH ×2 (08:59→21:56)
[2021-09-22] MEDS: INSULIN GLARGINE 100 UNITS/ML VIAL SQ SCH ×2 (08:59→18:06)
[2021-09-22] MEDS ORDERED: POTASSIUM CHLORIDE 20MEQ/100ML 100 ML IV ONE (09:15)
[2021-09-22] MEDS ORDERED: ASPIRIN 81 MG ENTERIC COATED PO ONE (09:30)
[2021-09-22] MEDS ORDERED: INSULIN LISPRO 100 UNIT/1 ML 3ML VIAL SQ ONE (15:00)
[2021-09-22] MEDS ORDERED: INSULIN LISPRO 100 UNIT/1 ML 3ML VIAL SQ SCH (15:00)
[2021-09-22] MEDS: ALPRAZOLAM 0.5 MG TAB PO PRN ×2 (15:26→23:39)
[2021-09-22] MEDS: POTASSIUM CHLORIDE 40 MEQ in DEXTROSE 5%/0.45% SOD CHL 1,000 ML IV SCH (15:37)
[2021-09-22] MEDS: INSULIN LISPRO 100 UNIT/1 ML 3ML VIAL SQ SCH ×3 (16:30→21:57)
[2021-09-22] MEDS: COLLAGENASE 5 GM TUBE TP SCH (19:15)
[2021-09-23 04:00] VITALS: BP 153/71
[2021-09-23] MEDS: POTASSIUM CHLORIDE 40 MEQ in DEXTROSE 5%/0.45% SOD CHL 1,000 ML IV SCH ×2 (04:23→20:53)
[2021-09-23] MEDS: ACETAMINOPHEN 325 MG TAB PO PRN ×3 (04:23→22:19)
[2021-09-23 07:41] LABS: ANION GAP 13.8 mmol/L (8-16); CREATININE, SERUM 0.76 mg/dL (0.57-1.11); POTASSIUM 3.8 mmol/L (3.5-5.1)
[2021-09-23 07:51] LABS: CALCIUM 6.8 mg/dL (8.4-10.2)
[2021-09-23 08:00] VITALS: BP 151/73
[2021-09-23 08:08] VITALS: BP 151/73
[2021-09-23] MEDS: BENZONATATE 100 MG CAP PO SCH ×3 (08:41→20:53)
[2021-09-23] MEDS: ASPIRIN 81 MG ENTERIC COATED PO SCH (08:42)
[2021-09-23] MEDS: CARVEDILOL 12.5 MG TAB PO SCH ×2 (08:42→17:29)
[2021-09-23] MEDS: ENOXAPARIN SOD INJ 40 MG/0.4 ML SYR SC SCH ×2 (08:42→20:54)
[2021-09-23] MEDS: INSULIN GLARGINE 100 UNITS/ML VIAL SQ SCH ×2 (08:43→17:33)
[2021-09-23] MEDS: INSULIN LISPRO 100 UNIT/1 ML 3ML VIAL SQ SCH ×7 (08:44→20:54)
[2021-09-23] MEDS: VALSARTAN 160 MG TAB PO SCH (09:34)
[2021-09-23] MEDS: COLLAGENASE 5 GM TUBE TP SCH (09:35)
[2021-09-23 11:20] VITALS: BP 153/73
[2021-09-23 16:06] VITALS: BP 165/76
[2021-09-23 20:00] VITALS: BP 155/73
[2021-09-24] VITALS (7 sets, daily range): BP systolic 153–181; BP diastolic 68–90
[2021-09-24 06:48] LABS: BASOPHILS # (AUTO) 0.1 (0.0-0.1); BASOPHILS % 0.9 % (0.0-1.0); EOSINOPHILS # (AUTO) 0.3 (0.0-0.4); EOSINOPHILS % 3.2 % (0.0-6.0); HEMATOCRIT 31.4 % (34.2-44.1); LYMPHOCYTES # (AUTO) 3.1 (1.0-3.2); LYMPHOCYTES % 33.8 % (18.0-39.1); MEAN CORPUSCULAR HEMOGLOBIN 27.5 pg (28-32); MEAN CORPUSCULAR HGB CONC 31.8 g/dL (31-35); MEAN CORPUSCULAR VOLUME 86.3 fL (81-99); MONOCYTES # (AUTO) 0.8 (0.2-0.8); NEUTROPHILS # (AUTO) 4.5 (2.1-6.9); NEUTROPHILS % 49.5 % (38.7-80.0); PLATELET COUNT 326 x10e3/uL (140-360); RED BLOOD COUNT 3.64 x10e6/uL (3.6-5.1)
[2021-09-24 07:02] LABS: ALBUMIN 2.2 g/dL (3.5-5.0); ALBUMIN/GLOBULIN RATIO 0.5 (0.8-2.0); ANION GAP 13.8 mmol/L (8-16); CREATININE, SERUM 0.77 mg/dL (0.57-1.11); POTASSIUM 3.8 mmol/L (3.5-5.1)
[2021-09-24 07:04] LABS: CALCIUM 6.9 mg/dL (8.4-10.2)
[2021-09-24] MEDS: ACETAMINOPHEN 325 MG TAB PO PRN ×2 (07:11→20:38)
[2021-09-24 07:21] LABS: % IRON SATURATION 11 % (15-50); IRON 26 ug/dL (50-170); TOTAL IRON BINDING CAPACITY 246 ug/dL (261-478); TRANSFERRIN 176 mg/dL (180-382)
[2021-09-24] MEDS: VALSARTAN 160 MG TAB PO SCH (08:29)
[2021-09-24] MEDS: BENZONATATE 100 MG CAP PO SCH ×3 (08:29→20:37)
[2021-09-24] MEDS: ALPRAZOLAM 0.5 MG TAB PO PRN ×2 (08:30→20:38)
[2021-09-24] MEDS: CARVEDILOL 12.5 MG TAB PO SCH ×2 (08:30→17:04)
[2021-09-24] MEDS: ASPIRIN 81 MG ENTERIC COATED PO SCH (08:31)
[2021-09-24] MEDS: ENOXAPARIN SOD INJ 40 MG/0.4 ML SYR SC SCH ×2 (08:31→20:37)
[2021-09-24] MEDS: COLLAGENASE 5 GM TUBE TP SCH (08:31)
[2021-09-24] MEDS: INSULIN GLARGINE 100 UNITS/ML VIAL SQ SCH ×2 (08:34→17:00)
[2021-09-24] MEDS: INSULIN LISPRO 100 UNIT/1 ML 3ML VIAL SQ SCH ×7 (08:35→20:38)
[2021-09-24 09:31] LABS: EOSINOPHILS % (MANUAL) 2 % (0-7); LYMPHOCYTES % (MANUAL) 27 % (19-48); MONOCYTES % (MANUAL) 10 % (3.4-9.0); MYELOCYTES % (MANUAL) 1 % (0-0); NEUTROPHILS % (MANUAL) 60 % (40-74)
[2021-09-24 09:32] LABS: PLATELET ESTIMATE ADEQUATE; PLATELET MORPHOLOGY COMMENT FEW GIANT; RBC MORPHOLOGY COMMENT NORMAL
[2021-09-24] MEDS ORDERED: AMLODIPINE BESYLATE 5 MG TAB PO ONE (10:00)
[2021-09-24] MEDS: POTASSIUM CHLORIDE 40 MEQ in DEXTROSE 5%/0.45% SOD CHL 1,000 ML IV SCH ×2 (11:34→20:38)
[2021-09-24] MEDS ORDERED: HYDROCODONE/APAP 5MG-325MG TAB PO ONE (14:15)
[2021-09-24] MEDS ORDERED: INSULIN GLARGINE 100 UNITS/ML VIAL SQ SCH (17:00)
[2021-09-25] VITALS: BP 167/75
[2021-09-25] MEDS: ACETAMINOPHEN 325 MG TAB PO PRN ×3 (03:25→16:12)
[2021-09-25 08:30] VITALS: BP_SYST 162; BP_SYST 174; BP_DIAS 71; BP_DIAS 91
[2021-09-25 08:34] VITALS: BP 174/91
[2021-09-25] MEDS ORDERED: AMLODIPINE BESYLATE 5 MG TAB PO SCH (09:00)
[2021-09-25] MEDS: INSULIN LISPRO 100 UNIT/1 ML 3ML VIAL SQ SCH ×5 (09:33→16:24)
[2021-09-25] MEDS: ASPIRIN 81 MG ENTERIC COATED PO SCH (09:34)
[2021-09-25] MEDS: POTASSIUM CHLORIDE 40 MEQ in DEXTROSE 5%/0.45% SOD CHL 1,000 ML IV SCH (09:34)
[2021-09-25] MEDS: CARVEDILOL 12.5 MG TAB PO SCH ×2 (09:35→16:13)
[2021-09-25] MEDS: VALSARTAN 160 MG TAB PO SCH (09:35)
[2021-09-25] MEDS: BENZONATATE 100 MG CAP PO SCH ×2 (09:36→16:13)
[2021-09-25] MEDS: ENOXAPARIN SOD INJ 40 MG/0.4 ML SYR SC SCH (09:36)
[2021-09-25] MEDS: COLLAGENASE 5 GM TUBE TP SCH (09:37)
[2021-09-25] MEDS: INSULIN GLARGINE 100 UNITS/ML VIAL SQ SCH ×2 (09:38→16:25)
[2021-09-25] MEDS: ALPRAZOLAM 0.5 MG TAB PO PRN ×2 (10:12→19:25)
[2021-09-25 12:09] VITALS: BP 125/65
[2021-09-25] MEDS ORDERED: INSULIN LISPRO 100 UNIT/1 ML 3ML VIAL SQ SCH (16:30)
[2021-09-25 16:46] VITALS: BP 159/77
== END 2021-09-25 19:50 | DRG 177 ==
LOC: ER 20:47 → ERHOLD 23:29 → ICU 09-19 → MED/SURG3 09-22 21:44
PROVIDERS: ADMIT Family Medicine; ATTEND Family Medicine
PROC: 009U3ZX Drainage of Spinal Canal, Percutaneous Approach, Diagnostic (ICD-10-PCS; principal; 2021-09-18)
PROC: 02HV33Z Insertion of Infusion Device into Superior Vena Cava, Percutaneous Approach (ICD-10-PCS; 2021-09-18)
PROC: 3E04329 Introduction of Other Anti-infective into Central Vein, Percutaneous Approach (ICD-10-PCS; 2021-09-19)
DX: U07.1 COVID-19 (principal); E11.10 Type 2 diabetes mellitus with ketoacidosis without coma; G92.8 Other toxic encephalopathy; G93.41 Metabolic encephalopathy; J96.90 Respiratory failure, unspecified, unspecified whether with hypoxia or hypercapnia; N39.0 Urinary tract infection, site not specified; N17.9 Acute kidney failure, unspecified; A87.9 Viral meningitis, unspecified; I25.2 Old myocardial infarction; I25.10 Atherosclerotic heart disease of native coronary artery without angina pectoris; Z79.899 Other long term (current) drug therapy; E66.01 Morbid (severe) obesity due to excess calories; Z68.33 Body mass index [BMI] 33.0-33.9, adult; E78.5 Hyperlipidemia, unspecified; R45.1 Restlessness and agitation; I48.91 Unspecified atrial fibrillation; Z79.01 Long term (current) use of anticoagulants; M19.90 Unspecified osteoarthritis, unspecified site; E87.5 Hyperkalemia
CPT/HCPCS: 36415; 36569; 36600; 51700; 62328; 70450; 71045; 74470; 80048; 80053; 81001; 82140; 82550; 82553; 82805; 82945; 82948; 83036; 83540; 83605; 83735; 84100; 84132; 84157; 84439; 84443; 84466; 84484; 85007; 85025; 85027; 85610; 85730; 87040; 87070; 87205; 89051; 93005; 94799; 97139; 99251; 99285; J0360; J0692; J0696; J1630; J1650; J1815; J1817; J2001; J3475; J3480; J3486; J7030; J7040; J7050; Q0162

== ENCOUNTER 2021-11-08 10:50 | Emergency (ER) | payer MEDICARE, OTHER ==
[~2021-11-08] VITALS: Ht 160 cm; Wt 85.7 kg
[2021-11-08 11:54] LABS: BASOPHILS # (AUTO) 0.1 (0.0-0.1); BASOPHILS % 1.1 % (0.0-1.0); EOSINOPHILS # (AUTO) 0.1 (0.0-0.4); EOSINOPHILS % 1.7 % (0.0-6.0); HEMATOCRIT 40.9 % (34.2-44.1); LYMPHOCYTES # (AUTO) 1.9 (1.0-3.2); LYMPHOCYTES % 26.6 % (18.0-39.1); MEAN CORPUSCULAR HEMOGLOBIN 27.4 pg (28-32); MEAN CORPUSCULAR HGB CONC 31.8 g/dL (31-35); MEAN CORPUSCULAR VOLUME 86.3 fL (81-99); MONOCYTES # (AUTO) 0.4 (0.2-0.8); MONOCYTES % 6.3 % (4.4-11.3); NEUTROPHILS # (AUTO) 4.5 (2.1-6.9); PLATELET COUNT 319 x10e3/uL (140-360); RED BLOOD COUNT 4.74 x10e6/uL (3.6-5.1); RED CELL DISTRIBUTION WIDTH 14.5 % (11.7-14.4)
[2021-11-08 11:59] LABS: INR 0.98; PROTHROMBIN TIME 13.9 seconds (11.9-14.5)
[2021-11-08 12:00] LABS: PARTIAL THROMBOPLASTIN TIME 24.5 seconds (23.8-35.5)
[2021-11-08 12:09] LABS: ALBUMIN 3.3 g/dL (3.5-5.0); ALBUMIN/GLOBULIN RATIO 0.7 (0.8-2.0); ANION GAP 21.9 mmol/L (8-16); CALCIUM 8.5 mg/dL (8.4-10.2); CREATININE, SERUM 1.42 mg/dL (0.57-1.11); MAGNESIUM 1.6 MG/DL (1.3-2.1); POTASSIUM 3.9 mmol/L (3.5-5.1)
[2021-11-08 12:15] LABS: CREATINE KINASE MB 0.7 ng/mL (0-5.0)
[2021-11-08] MEDS ORDERED: SODIUM CHLORIDE 0.9% 1000ML 1,000 ML IV STA (12:38)
[2021-11-08] MEDS ORDERED: INSULIN REGULAR, HUMAN 100 UNIT/1 ML IV ONE (13:45)
[2021-11-08] MEDS ORDERED: DICYCLOMINE HCL 20 MG/2 ML VIAL IM ONE ×2 (14:00→14:08)
[2021-11-08 14:31] LABS: CLARITY,URINE HAZY (CLEAR); COLOR,URINE YELLOW (YELLOW); KETONES,URINE 2+ (NEGATIVE); LEUKOCYTE ESTERASE ,URINE SMALL (NEGATIVE); NITRITE,URINE POSITIVE (NEGATIVE); PROTEIN,URINE DIPSTICK TRACE (NEGATIVE)
[2021-11-08 14:32] LABS: URINE UROBILINOGEN 0.2 mg/dL (0.2 - 1)
[2021-11-08 14:34] LABS: AMPHETAMINES SCREEN,URINE NEGATIVE (NEGATIVE); BENZODIAZEPINES SCREEN,URINE NEGATIVE (NEGATIVE); PHENCYCLIDINE SCREEN,URINE NEGATIVE (NEGATIVE)
[2021-11-08 14:40] LABS: WBC,URINE (MAN) >50 /HPF (0-5)
[2021-11-08 14:41] LABS: AMORPHOUS SEDIMENT,URINE FEW (FEW); BACTERIA,URINE MODERATE /HPF; EPITHELIAL CELLS,URINE FEW /LPF
[2021-11-08 14:42] LABS: MUCUS,URINE FEW (RARE)
== END 2021-11-08 15:58 | disposition home or self-care (01) ==
LOC: ER 10:54
DX: R10.10 Upper abdominal pain, unspecified (principal); N39.0 Urinary tract infection, site not specified; E11.65 Type 2 diabetes mellitus with hyperglycemia; G89.29 Other chronic pain; I10 Essential (primary) hypertension; I25.10 Atherosclerotic heart disease of native coronary artery without angina pectoris; I25.2 Old myocardial infarction; Z95.5 Presence of coronary angioplasty implant and graft
CPT/HCPCS: 36415; 71045; 80053; 80307; 80329; 81001; 82550; 82553; 82948; 83690; 83735; 83880; 84484; 85025; 85610; 85730; 87086; 87186; 93005; 99285; J0500; J1817; J7030

== ENCOUNTER 2022-01-13 22:21 | Emergency (ER) | payer MEDICARE, OTHER ==
[~2022-01-13] VITALS: Ht 160 cm; Wt 85.7 kg
[2022-01-13] MEDS ORDERED: ASPIRIN 81 MG CHEW TAB PO ONE (22:30)
[2022-01-13 22:54] LABS: BASOPHILS # (AUTO) 0.1 (0.0-0.1); BASOPHILS % 0.8 % (0.0-1.0); EOSINOPHILS # (AUTO) 0.3 (0.0-0.4); HEMATOCRIT 34.5 % (34.2-44.1); HEMOGLOBIN 10.9 g/dL (12.0-16.0); LYMPHOCYTES # (AUTO) 2.8 (1.0-3.2); LYMPHOCYTES % 46.1 % (18.0-39.1); MEAN CORPUSCULAR HEMOGLOBIN 27.7 pg (28-32); MEAN CORPUSCULAR HGB CONC 31.6 g/dL (31-35); MEAN CORPUSCULAR VOLUME 87.6 fL (81-99); MONOCYTES # (AUTO) 0.5 (0.2-0.8); MONOCYTES % 7.8 % (4.4-11.3); NEUTROPHILS # (AUTO) 2.4 (2.1-6.9); NEUTROPHILS % 39.8 % (38.7-80.0); PLATELET COUNT 222 x10e3/uL (140-360); RED BLOOD COUNT 3.94 x10e6/uL (3.6-5.1); RED CELL DISTRIBUTION WIDTH 14.9 % (11.7-14.4)
[2022-01-13 22:56] LABS: CLARITY,URINE SL CLOUDY (CLEAR); COLOR,URINE YELLOW (YELLOW); KETONES,URINE NEGATIVE (NEGATIVE); LEUKOCYTE ESTERASE ,URINE TRACE (NEGATIVE); NITRITE,URINE POSITIVE (NEGATIVE); PROTEIN,URINE DIPSTICK TRACE (NEGATIVE); URINE UROBILINOGEN 0.2 mg/dL (0.2 - 1)
[2022-01-13 23:02] LABS: BACTERIA,URINE MANY /HPF; EPITHELIAL CELLS,URINE RARE /LPF; RBC,URINE 0-5 /HPF (0-5); WBC,URINE (MAN) 21-50 /HPF (0-5)
[2022-01-13 23:14] LABS: ALBUMIN 3.2 g/dL (3.5-5.0); ALBUMIN/GLOBULIN RATIO 0.7 (0.8-2.0); ANION GAP 16.7 mmol/L (8-16); CALCIUM 8.6 mg/dL (8.4-10.2); CREATININE, SERUM 1.04 mg/dL (0.57-1.11); POTASSIUM 3.7 mmol/L (3.5-5.1)
[2022-01-13] MEDS ORDERED: CEFDINIR300 MG PO (23:44)
[2022-01-14] MEDS ORDERED: ACETAMINOPHEN 325 MG TAB PO ONE (00:15)
[2022-01-14 01:21] VITALS: BP 143/75
== END 2022-01-14 01:15 | disposition home or self-care (01) ==
LOC: ER 22:30
DX: M54.9 Dorsalgia, unspecified (principal); N39.0 Urinary tract infection, site not specified; L89.152 Pressure ulcer of sacral region, stage 2; L89.891 Pressure ulcer of other site, stage 1; I12.9 Hypertensive chronic kidney disease with stage 1 through stage 4 chronic kidney disease, or unspecified chronic kidney disease; E11.22 Type 2 diabetes mellitus with diabetic chronic kidney disease; N18.9 Chronic kidney disease, unspecified; F41.9 Anxiety disorder, unspecified; G89.4 Chronic pain syndrome; I25.2 Old myocardial infarction
CPT/HCPCS: 36415; 80053; 81001; 82550; 82553; 82948; 84484; 85025; 93005; 99284; J0696